=== PATIENT | female | born 1945 | race Hispanic/Latino ===

== ENCOUNTER 2016-12-01 03:11 | Emergency (ER) | payer MEDICARE, MEDICAID ==
[2016-12-01 03:22] VITALS: BMI 36.2
[2016-12-01 03:32] VITALS: RESP 18
--- NOTE | 2016-12-01 03:54 | ED PDOC ---
Arrival/HPI - General Historian: Patient - History of Present Illness Time/Duration: 1-3 hours <Abby Smith - Last Filed: 12/01/16 06:48> <Rose Paul - Last Filed: 12/01/16 07:44> - General Chief Complaint: Trauma Time Seen by Provider: 12/01/16 03:29 - History of Present Illness Narrative History of Present Illness (Text): 12/01/16 03:43 71 year old female with past medical history of hypertension, seizures, diabetes , hypothyroidism, GERD, and anemia presents to [facility] ED after having a mechanical fall at the intermediate. Patient reports she was getting out of her wheelchair to go to bed and lost balance then fell to the ground. Patient injured on her right hip, head, and left arm. She denies loss of consciousness, urinary or fecal incontinence. Patient made her way to the call foy and staff was notified. Denies seizures, fever, chills, shortness of breath, chest pain, nausea, vomiting, urinary symptoms. (Abby Smith) Past Medical History - Provider Review Nursing Documentation Reviewed: Yes - Infectious Disease Hx of Infectious Diseases: None - Cardiac Hx Pacemaker: No - Pulmonary Hx Respiratory Disorders: No - Neurological Hx Paralysis: No Hx Seizures: Yes - HEENT Hx HEENT Disorder: No - Endocrine/Metabolic Hx Diabetes Mellitus Type 1: Yes Hx Hypothyroidism: Yes - Hematological/Oncological Hx Blood Transfusions: Yes Hx Blood Transfusion Reaction: No - Integumentary Hx Dermatological Disorder: No - Musculoskeletal/Rheumatological Hx Musculoskeletal Disorders: Yes - Gastrointestinal Hx Gastrointestinal Disorders: Yes Hx Gastroesophageal Reflux: Yes - Genitourinary/Gynecological Hx Genitourinary Disorders: No - Psychiatric Hx Emotional Abuse: No Hx Physical Abuse: No Hx Substance Use: No - Surgical History Hx Appendectomy: Yes Other/Comment: herniorrhaphy - Anesthesia Hx Anesthesia Reactions: No - Suicidal Assessment Feels Threatened In Home Enviroment: No <Abby Smith - Last Filed: 12/01/16 06:48> Family/Social History - Physician Review Nursing Documentation Reviewed: Yes Family/Social History: No Known Family HX Smoking Status: Never Smoked Hx Alcohol Use: No Hx Substance Use: No <Abby Smith - Last Filed: 12/01/16 06:48> Allergies/Home Meds <Abby Smith - Last Filed: 12/01/16 06:48> <Rose Paul - Last Filed: 12/01/16 07:44> Allergies/Adverse Reactions: Allergies morphine Allergy (Verified 08/12/16 09:07) VOMITING Penicillins Allergy (Verified 09/26/16 11:34) RASH shellfish derived Allergy (Verified 08/12/16 09:07) ANAPHYLAXIS Home Medications: Home Meds Medication Instructions Recorded Confirmed Calcium Carbonate [Calcium] 600 mg PO DAILY 08/12/16 12/01/16 Furosemide [Lasix] 40 mg PO BID 08/12/16 12/01/16 Gabapentin [Neurontin] 300 mg PO TID 08/12/16 12/01/16 Levothyroxine Sodium [Levo-T] 75 mcg PO DAILY 08/12/16 12/01/16 Multivitamin [One Daily] 1 tab PO DAILY 08/12/16 12/01/16 Phenytoin, Extended [Dilantin 100 mg PO TID 08/12/16 12/01/16 Kapseals] Propylene Glycol/Peg 400 [Systane 1 drop OU QID 08/12/16 12/01/16 Liquid Gel Eye Drops] Simvastatin 10 mg PO DAILY 08/12/16 12/01/16 Spironolactone [Aldactone] 25 mg PO BID 08/12/16 12/01/16 Vitamin B Complex [Nature's Blend 1 tab PO DAILY 08/12/16 12/01/16 B Complex #1] Esomeprazole Magnesium [Nexium] 40 mg PO DAILY 09/26/16 12/01/16 Review of Systems - Physician Review All systems were reviewed & negative as marked: Yes - Review of Systems Constitutional: Normal. absent: Fatigue, Weight Change, Fevers Eyes: Normal. absent: Vision Changes ENT: Normal Respiratory: Normal. absent: SOB, Cough, Wheezing Cardiovascular: Normal. absent: Chest Pain, Syncope Gastrointestinal: Normal. absent: Abdominal Pain, Diarrhea, Nausea, Vomiting Musculoskeletal: Other (right hip pain, left forearm pain) Skin: Normal Neurological: Headache. absent: Dizziness, Seizure Endocrine: Normal Psychiatric: Normal <Abby Smith - Last Filed: 12/01/16 06:48> Physical Exam Vital Signs Reviewed: Yes Temperature: Afebrile Blood Pressure: Normal Pulse: Regular Respiratory Rate: Normal Appearance: Positive for: Non-Toxic Pain Distress: Mild Mental Status: Positive for: Alert and Oriented X 3 - Systems Exam Head: Present: Atraumatic, Normocephalic Pupils: Present: PERRL Extroacular Muscles: Present: EOMI Conjunctiva: Present: Normal Ears: Present: Normal Mouth: Present: Moist Mucous Membranes, Other (poor dentation) Respiratory/Chest: Present: Clear to Auscultation, Good Air Exchange. No: Respiratory Distress, Accessory Muscle Use, Wheezes Cardiovascular: Present: Regular Rate and Rhythm, Normal S1, S2 Abdomen: Present: Normal Bowel Sounds. No: Tenderness, Distention, Peritoneal Signs Upper Extremity: Present: Normal Inspection. No: Cyanosis, Edema Lower Extremity: Present: Normal Inspection. No: Edema Neurological: Present: GCS=15, CN II-XII Intact, Speech Normal Skin: Present: Warm, Dry, Normal Color. No: Rashes Psychiatric: Present: Alert, Oriented x 3, Normal Insight, Normal Concentration <Abby Smith - Last Filed: 12/01/16 06:48> Vital Signs Temp Pulse Resp BP Pulse Ox 12/01/16 03:22 97.6 F 80 18 126/84 100 Medical Decision Making Re-evaluation Time: 06:41 Reassessment Condition: Improved <Abby Smith - Last Filed: 12/01/16 06:48> <Rose Paul - Last Filed: 12/01/16 07:44> ED Course and Treatment: 12/01/16 04:17 -CT Head -CT pelvis -Toradol -Reassess DDx: mechanical fall, subdural hemotoma, concussion (Abby Smith) Impression: In agreement with resident note, which includes further HPI details. Patient was seen and evaluated with resident, came up with plan and treatment together. Pt, whose past medical history includes hypertension, seizures, diabetes, hypothyroidism, GERD, and anemia, s/p fall at intermediate. Pt complaining of pain to right hip, left arm, and head. Plan: -- CT Head w/o contrast -- CT Pelvis w/o contrast -- XR Hip -- Toradol -- Reassess and disposition 12/01/16 07:29 Imaging is unremarkable - patient says she has no pain at this time - ok for d/ c back to [place]. (Rose Paul) - Lab Interpretations Lab Results: Lab Results 12/01/16 03:42: POC Glucose (mg/dL) 117 H - RAD Interpretation Narrative RAD Interpretations (Text): 12/01/16 06:40 EXAM: CT Head Without Intravenous Contrast CLINICAL HISTORY: 71 years old, female; Injury or trauma; Fall; Initial encounter; Concussion / head injury TECHNIQUE: Axial computed tomography images of the head/brain without intravenous contrast. This CT exam was performed using one or more of the following dose reduction techniques: automated exposure control, adjustment of the mA and/or kV according to patient size, and/or use of iterative reconstruction technique. EXAM DATE/TIME: 12/01/2016 3:54 AM COMPARISON: Prior head CT of 08/12/2016 FINDINGS: LIMITATIONS: Exam is somewhat limited by mild streak/motion artifact. BRAIN: Areas of hypodensity seen in the white matter bilaterally, nonspecific in appearance, but most likely representing chronic small vessel ischemic changes, in a patient of this age. Diffuse, agerelated cortical atrophy and ventriculomegaly. No significant acute abnormality identified. No acute hemorrhage seen within the brain. No acute extra-axial fluid collections visualized. No evidence of significant mass effect within the brain. VENTRICLES: See above. BONES/JOINTS: No acute fractures or other acute bony abnormality noted. SOFT TISSUES: No acute abnormality of the visualized soft tissues is seen. VASCULATURE: Atherosclerotic calcification. SINUSES: Visualized paranasal sinuses appear clear. MASTOID AIR CELLS: Mastoid air cells appear clear. IMPRESSION: - No evidence of acute intracranial injury or fractures. - See above for remaining findings. 12/01/16 06:48 EXAM: CT Pelvis Without Intravenous Contrast CLINICAL HISTORY: 71 years old, female; Injury or trauma; Fall; Initial encounter; Blunt trauma ( contusions or hematomas); Does not apply; Pelvic region; Additional info: Posterior r buttock pain - R/O pelvis FX TECHNIQUE: Axial computed tomography images of the pelvis without intravenous contrast. This CT exam was performed using one or more of the following dose reduction techniques: automated exposure control, adjustment of the mA and/or kV according to patient size, and/or use of iterative reconstruction technique. Coronal and sagittal reformatted images were created and reviewed. EXAM DATE/TIME: 12/01/2016 4:23 AM COMPARISON: Prior CT pelvis of 08/12/2016 FINDINGS: BOWEL: No acute abnormality of the visualized pelvic bowel loops is seen. APPENDIX: Normal appendix is not seen, however, there are no significant inflammatory changes visualized in the expected location of the appendix to suggest appendicitis. Recommend clinical correlation. INTRAPERITONEAL SPACE: No evidence of significant free air or free fluid. BLADDER: Bladder is mildly dilated. REPRODUCTIVE: No acute abnormality of the reproductive organs is seen. BONES/JOINTS: Bony structures appear demineralized. Bilateral pars defects at L5. No acute fractures are seen. SOFT TISSUES:No acute abnormality of the visualized soft tissues is seen. No evidence of soft tissue hematoma. IMPRESSION: - No evidence of acute traumatic organ injury or fractures (Abby Smith) Radiology Orders: 12/01/16 03:54 HEAD W/O CONTRAST [CT] Stat 12/01/16 04:23 PELVIS W/O PO OR IV CONTRAST [CT] Stat HIP MIN 4V W/ PELVIS RT [RAD] Stat - Medication Orders Current Medication Orders: Discontinued Medications Ketorolac Tromethamine (Toradol) 15 mg IVP STAT STA Stop: 12/01/16 04:00 Last Admin: 12/01/16 04:48 Dose: 15 MG IVP Administration Document 12/01/16 04:48 TA (Rec: 12/01/16 04:48 TA [facility]-[id number]) Charges for Administration # of IVP Administrations 1 Disposition/Present on Arrival - Present on Arrival Any Indicators Present on Arrival: No History of DVT/PE: No History of Uncontrolled Diabetes: No Urinary Catheter: No History of Decub. Ulcer: No History Surgical Site Infection Following: None - Disposition Have Diagnosis and Disposition been Completed?: Yes Disposition Time: 06:52 Patient Plan: Discharge <Abby Smith - Last Filed: 12/01/16 06:48> - Present on Arrival Any Indicators Present on Arrival: Yes - Disposition Disposition Time: 07:00 Patient Plan: Discharge <Rose Paul - Last Filed: 12/01/16 07:44> - Disposition Diagnosis: Fall, Minor head injury Disposition: TRANSF TO [facility] Patient Problems: Current Active Problems Problem Status Diagnosed Fall Acute Condition: GOOD Discharge Instructions (ExitCare): Fall Prevention for Older Adults (ED) Additional Instructions: Mabel Jacobsen, thank you for letting us take care of you today. Your provider was Dr. Paul. You were treated for Mechanical fall. The emergency medical care you received today was directed at your acute symptoms. If you were prescribed any medication, please fill it and take as directed. It may take several days for your symptoms to resolve. Return to the Emergency Department if your symptoms worsen, do not improve, or if you have any other problems. Please contact your doctor or call one of the physicians/clinics you have been referred to that are listed on the Patient Visit Information form that is included in your discharge packet. Bring any paperwork you were given at discharge with you along with any medications you are taking to your follow up visit. Our treatment cannot replace ongoing medical care by a primary care provider (PCP) outside of the emergency department. Thank you for allowing the [facility] team to be part of your care today. If you had an X-Ray or CT scan: A Radiologist will review the ED reading if any change in treatment is needed we will contact you. If you had a blood, urine, or wound culture: It will take several days for the results, if any change in treatment is needed we will contact you. If you had an STI test: It will take 48 hours for the results. Please call after 1 week if you have not heard back. Prescriptions: Ibuprofen [Ibuprofen Ib] 400 mg PO Q6 PRN #20 tablet PRN Reason: Pain, Moderate (4-7)
--- NOTE | 2016-12-01 06:34 | CT ---
EXAM: CT Head Without Intravenous Contrast CLINICAL HISTORY: 71 years old, female; Injury or trauma; Fall; Initial encounter; Concussion / head injury TECHNIQUE: Axial computed tomography images of the head/brain without intravenous contrast. This CT exam was performed using one or more of the following dose reduction techniques: automated exposure control, adjustment of the mA and/or kV according to patient size, and/or use of iterative reconstruction technique. EXAM DATE/TIME: 12/01/2016 3:54 AM COMPARISON: Prior head CT of 08/12/2016 FINDINGS: LIMITATIONS: Exam is somewhat limited by mild streak/motion artifact. BRAIN: Areas of hypodensity seen in the white matter bilaterally, nonspecific in appearance, but most likely representing chronic small vessel ischemic changes, in a patient of this age. Diffuse, age-related cortical atrophy and ventriculomegaly. No significant acute abnormality identified. No acute hemorrhage seen within the brain. No acute extra-axial fluid collections visualized. No evidence of significant mass effect within the brain. VENTRICLES: See above. BONES/JOINTS: No acute fractures or other acute bony abnormality noted. SOFT TISSUES: No acute abnormality of the visualized soft tissues is seen. VASCULATURE: Atherosclerotic calcification. SINUSES: Visualized paranasal sinuses appear clear. MASTOID AIR CELLS: Mastoid air cells appear clear. IMPRESSION: - No evidence of acute intracranial injury or fractures. - See above for remaining findings.
--- NOTE | 2016-12-01 06:43 | CT ---
EXAM: CT Pelvis Without Intravenous Contrast CLINICAL HISTORY: 71 years old, female; Injury or trauma; Fall; Initial encounter; Blunt trauma (contusions or hematomas); Does not apply; Pelvic region; Additional info: Posterior r buttock pain - R/O pelvis FX TECHNIQUE: Axial computed tomography images of the pelvis without intravenous contrast. This CT exam was performed using one or more of the following dose reduction techniques: automated exposure control, adjustment of the mA and/or kV according to patient size, and/or use of iterative reconstruction technique. Coronal and sagittal reformatted images were created and reviewed. EXAM DATE/TIME: 12/01/2016 4:23 AM COMPARISON: Prior CT pelvis of 08/12/2016 FINDINGS: BOWEL: No acute abnormality of the visualized pelvic bowel loops is seen. APPENDIX: Normal appendix is not seen, however, there are no significant inflammatory changes visualized in the expected location of the appendix to suggest appendicitis. Recommend clinical correlation. INTRAPERITONEAL SPACE: No evidence of significant free air or free fluid. BLADDER: Bladder is mildly dilated. REPRODUCTIVE: No acute abnormality of the reproductive organs is seen. BONES/JOINTS: Bony structures appear demineralized. Bilateral pars defects at L5. No acute fractures are seen. SOFT TISSUES:No acute abnormality of the visualized soft tissues is seen. No evidence of soft tissue hematoma. IMPRESSION: - No evidence of acute traumatic organ injury or fractures. - See above for remaining findings.
--- NOTE | 2016-12-01 08:44 | RAD ---
PROCEDURE: Right hip and pelvis HISTORY: R posterior hip and buttock pain COMPARISON: None TECHNIQUE: AP pelvis and internal and external rotation views of right hip FINDINGS: No acute fracture. Joint spaces and articular surfaces are preserved. Sacroiliac joints are grossly preserved. IMPRESSION: No acute fracture.
[2016-12-01 09:17] VITALS: TEMP 97.8
[2016-12-01 10:25] VITALS: BP 130/78; PULSE 78; O2SAT 97
== END 2016-12-01 11:31 ==
LOC: ED 03:11
DX: S09.90XA Unspecified injury of head, initial encounter (principal); W05.0XXA Fall from non-moving wheelchair, initial encounter; Y92.129 Unspecified place in nursing home as the place of occurrence of the external cause
CPT/HCPCS: 70450; 72192; 73503; 82948; 96374; 99285; J1885

== ENCOUNTER 2017-01-24 07:30 | Inpatient (IN) | payer MEDICARE, MEDICAID ==
[2016-12-28 11:02] VITALS: BMI 33.4
--- NOTE | 2017-01-24 08:58 | CP.PCM.PN ---
Subjective - Date & Time of Evaluation Date of Evaluation: 01/24/17 Time of Evaluation: 08:55 - Subjective Subjective: 71 y/o F with gastric polyp presenting for EMR and possible gastrectomy. Spoke with sister (Saray) at length yesterday regarding increased anesthetic risk primarily due to severe aortic stenosis and she and both patient agree to the risk. Objective - Vital Signs/Intake and Output Vital Signs (last 24 hours): Temp Pulse Resp BP Pulse Ox 98.1 F 75 18 133/84 98 01/24/17 08:09 01/24/17 08:09 01/24/17 08:09 01/24/17 08:09 01/24/17 08:09
[2017-01-24] MEDS ORDERED: Midazolam 2 MG/2 ML VIAL ONE ×2 (09:39→10:45)
[2017-01-24] MEDS ORDERED: Succinylcholine 200 mg/10 ml Inj IV ONE (09:48)
[2017-01-24] MEDS ORDERED: Rocuronium 10 mg/ml (5 ml) ONE ×2 (09:48→09:59)
[2017-01-24] MEDS ORDERED: Etomidate 20 mg/10ml Inj IV ONE (09:48)
[2017-01-24] MEDS ORDERED: Phenylephrine 10 mg/ml Inj ONE (09:48)
[2017-01-24] MEDS ORDERED: Methylene Blue 10 mg/ml (1ml) Inj ONE (09:54)
[2017-01-24] MEDS ORDERED: Esmolol 100 mg/10ml Inj IV ONE (10:38)
[2017-01-24] MEDS ORDERED: HYDROmorphone 0.5 mg/0.5 ml ISec IVP PRN (11:28)
[2017-01-24] MEDS ORDERED: Sodium Chloride 0.9% 1,000 ML IV SCH (11:30)
[2017-01-24] MEDS ORDERED: Bacitracin 500 Units/gm Oint Foilpak UD ONE (12:03)
[2017-01-24] MEDS ORDERED: Pneumococcal 23-Valent Vaccine IM ONE (15:05)
--- NOTE | 2017-01-24 15:26 | CON ---
DATE: 01/24/2017 REASON FOR CONSULTATION: Aortic stenosis, postop followup of large gastric polypectomy. BRIEF CLINICAL HISTORY: This is a 71-year-old female with past medical history significant for GI bl eed in the past, history of congestive heart failure, anemia who was found to have a large polypoid m ass in the stomach and is scheduled for removal endoscopically with surgical backup by Dr. Sid delgadillo. The patient was seen last admission and it was canceled because the patient got scared. The enid ent underwent today endoscopic removal of a large polypoid mass from the gastric mucosa and the surgi paddy backup. Postop, the patient is in the recovery area. Denies any chest pain, shortness of breath , any palpitation. PAST MEDICAL HISTORY: Significant for cardiac arrhythmia, APCs. In 07/2016, the patient was admitte d with a GI bleed. Thought to be in AFib, but was found to be in normal sinus, APC on 08/17/2016 whe re we saw the patient as a consult at that time. Past medical history significant also for seizure d isorder, hypertension, diabetes, hypothyroidism, gastroesophageal reflux, GI bleed. PAST SURGICAL HISTORY: Significant for appendectomy in ____, history of right inguinal hernia in 200 8 and 2008, history of anemia, history of multiple blood transfusions. SOCIAL HISTORY: Denies smoking. Denies any history of alcohol abuse. FAMILY HISTORY: No documented coronary artery disease. ALLERGIES: SHELLFISH. CURRENT MEDICATIONS: The patient is taking tramadol, B complex, simvastatin, multivitamin, magnesium , lidocaine patch, levothyroxine, gabapentin, Lasix, calcium softgel and acetaminophen. PREVIOUS CARDIAC WORKUP: As follows: The patient had echocardiography on 08/09/2016 that shows aort ic stenosis with valve area of 0.6 cm2 normal LV size, ejection fraction within the normal limit, lázaro stolic dysfunction, moderate to severely calcified aortic valve, severe aortic stenosis, mild aortic regurgitation, mitral regurgitation, no pulmonary hypertension, no significant tricuspid regurgitatio n, RV systolic pressure at 30, calculated ejection fraction 55% dated 08/09/2016. REVIEW OF SYSTEMS: As per HPI. PHYSICAL EXAMINATION: VITAL SIGNS: Temperature 98, heart rate 63, blood pressure 122/60. HEENT: PERRLA. Extraocular muscles intact. NECK: Supple. No carotid bruits. No thyromegaly. CHEST: Clear to auscultation. HEART: S1, S2 regular. ABDOMEN: Soft. EXTREMITIES: Clubbing and cyanosis negative. BLOOD WORKUP: As follows: WBC 7.____, hemoglobin 10.9, hematocrit 32.8, platelet count 500. Chemis try shows sodium 130, potassium 3.7, chloride 100, carbon dioxide 27, anion gap of 13, BUN 6, creatin ine 0.5. IMPRESSION: Status post large polypoid mass removed endoscopically, history of severe aortic stenosi s with preserved left ventricular function, history of arrhythmia in the past, history of seizure dis order, hypertension, diabetes, hypothyroidism, gastroesophageal reflux, obesity. RECOMMENDATION: Monitor H and H. Monitor in ICU because the patient has severe aortic stenosis. Wi ll follow with you. Thank you, Dr. Tillman, for providing us the opportunity in taking care of the patient. Will follow with you. Jaleesa Boss MD cc: [id number] TT: 01/24/2017 15:25:24 Confirmation # [id number] Dictation # [id number] mn
[2017-01-24] MEDS ORDERED: Sodium Chloride 0.45% 1,000 ML IV SCH (17:15)
--- NOTE | 2017-01-24 20:36 | HP ---
HISTORY OF PRESENT ILLNESS: This is a 71-year-old patient with history of large gastric polyp prolap sing into the duodenum, was admitted to the same day surgery initially for polyp with surgical backup . The patient has a history of severe aortic stenosis. The patient was preoperatively evaluated by the legislative advocate before. The patient did refuse TAVR in the past. The patient underwent the procedu re today under general anesthesia with A-line monitoring. The large polyp was pulled out from the du odenum and removed in one piece. Three clips were applied to the base with perfect hemostasis obtain ed. The entire polyp was retrieved in one piece. Sent for pathology for analysis. The patient has been on pureed diet for a long time in view of this polyp which is causing partial gastric outlet obs truction. Other past medical history is significant for anemia, history of arthritis, cardiac arrhyt hmias, atrial fibrillation, seizure disorder, hypertension, diabetes, hypothyroidism, reflux disease. PAST SURGICAL HISTORY: Significant for appendectomy, right inguinal hernia repair done. SOCIAL HISTORY: Denies smoking or alcohol. senior living resident. FAMILY HISTORY: Noncontributory. ALLERGIES: SHELLFISH. REVIEW OF SYSTEMS: Positive as above. Other systems reviewed. PHYSICAL EXAMINATION: GENERAL: The patient is lying on the bed post procedure, not in acute distress. VITAL SIGNS: Temperature is afebrile, blood pressure 122/62. HEENT: Atraumatic, anicteric. NECK: Supple. HEART: S1, S2 heard. LUNGS: Bilateral air entry present. ABDOMEN: Soft. There is no tenderness. EXTREMITIES: No cyanosis, no clubbing. LABORATORY DATA: Hemoglobin 10.9, hematocrit 32.8, platelets 500. Chemistry reviewed. IMPRESSION: 1. Status post large gastric polypectomy done endoscopically. Hemoclips applied. 2. History of severe aortic stenosis with preserved left ventricular function. 3. History of cardiac dysrhythmias. 4. History of seizure disorder. 5. Hypertension. 6. Hypothyroidism, gastroesophageal reflux disease. RECOMMENDATIONS: 1. Close monitoring. Will start the patient on clear liquid diet. 2. Close monitoring of the hemoglobin and hematocrit. Will repeat labs in a.m. 3. Will restart her previous medication. We will continue to closely follow up her care and suggest further management based on the clinical course. Toby Tillman MD cc: [id number] TT: 01/24/2017 20:35:50 rn
[2017-01-24] MEDS: Magnesium Hydroxide Susp 30 ml UD PO SCH (21:55)
[2017-01-24] MEDS: Aritificial Tears (15ml) OU SCH (22:11)
[2017-01-25] MEDS: Pantoprazole 40 mg EC Tab PO SCH (06:12)
[2017-01-25] MEDS: Levothyroxine 75 MCG TAB PO SCH (06:13)
[2017-01-25 08:02] LABS: ADD MANUAL DIFF? NO
[2017-01-25 08:06] LABS: BASO # 0.03 K/mm3 (0.0-2.0); BASO % 0.3 % (0.0-3.0); EOS # 0.1 (0.0-0.7); EOS % 1.4 % (1.5-5.0); GRAN # 7.55 (1.4-6.5); GRAN % 79.3 % (50.0-68.0); HEMATOCRIT 29.8 % (36.0-48.0); MEAN CELL VOLUME 75.8 fL (80.0-105.0); MEAN CORPUSCULAR HEMOGLOBIN 24.2 pg (25.0-35.0); MEAN CORPUSCULAR HGB CONC 31.9 g/dl (31.0-37.0); MEAN PLATELET VOLUME 9.8 fl (7.0-11.0); MONO # 0.9 (0.1-0.6); PLATELET COUNT 486 10^3/uL (120.0-450.0); RED CELL DISTRIBUTION WIDTH 17.8 % (11.5-14.5); WHITE BLOOD COUNT 9.5 10^3/ul (4.5-11.0)
[2017-01-25 08:53] LABS: ALB/GLOB RATIO 1.1 (1.1-1.8); ALKALINE PHOSPHATASE 104 U/L (38-133); ALT/SGPT 29 U/L (7-56); AST/SGOT 22 U/L (15-39); BILIRUBIN,TOTAL 0.4 mg/dL (0.2-1.3); BLOOD UREA NITROGEN 8 mg/dL (7-21); CALCIUM 8.8 mg/dL (8.4-10.5); CARBON DIOXIDE 26 mmol/L (21-33); CHLORIDE 103 mmol/L (98-107); CHOLESTEROL 180 mg/dL (130-200); GFR AFRICAN-AMERICAN > 60; GLUCOSE,RANDOM 96 mg/dL (70-110); MAGNESIUM 2.2 mg/dL (1.7-2.2); PHOSPHOROUS 3.6 mg/dL (2.5-4.5); POTASSIUM 3.5 mmol/L (3.6-5.0); SODIUM 137 mmol/L (132-148); TOTAL PROTEIN 6.6 g/dL (5.8-8.3)
--- NOTE | 2017-01-25 08:54 | CON ---
DATE: 01/25/2017 CHIEF COMPLAINT: Abdominal pain, gassy stomach. HISTORY OF PRESENT ILLNESS: The patient a 71-year-old, my private patient, resident of [facility]. Has multiple past medical history: Hypertension, hypothyroidism, anemia, hypercholesterolemia, mentally challenged. Has abdominal pain, and endoscopy was done by Dr. 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 This time was admitted to the same day surgery initially for polyp with surgical backup. The patient has history of severe aortic stenosis. The patient has refused surgery and maybe in the future she will go. The patient was preoperatively evaluated by the electric motor analyst, Dr. Boss, and was cleared with high risk patient. The patient went for procedure today by Dr. Tillman. The large polyp was pulled out from the duodenum and removed in 1 piece. Three clips were applied to the base with perfect hemostasis obtained. The entire polyp was retrieved in [address] Tillman, sent for pathology evaluation. The patient is getting pureed diet for a long time. One reason, she does not have good dentures; second, may be due to polyp; she was feeling dysphagia some time, and this tumor was causing gastric partial outlet obstruction. OTHER MEDICAL COMORBIDITIES: Arthritis, cardiac arrhythmias, atrial fibrillation, seizures, hypertension, diabetes mellitus, hypothyroidism, GERD, dyspepsia. PAST SURGICAL HISTORY: Appendectomy, right inguinal hernia repair. FAMILY HISTORY: Father and mother noncontributory. HABITS: Never smoked, no drugs, no ethanol. ALLERGIES: THE PATIENT IS ALLERGIC TO SHELLFISH. REVIEW OF SYSTEMS: The patient was seen and examined on the bedside. Looks comfortable. Just complaining of abdominal pain, gassy stomach. No fever, no chills. No headache, no dizziness. PHYSICAL EXAMINATION: VITAL SIGNS: Temperature 97.8, pulse 81, blood pressure 92/50, respiratory rate 18. HEENT: Head normocephalic, atraumatic. Eyes: PERRLA. Extraocular muscles intact. Conjunctivae are clear. Nose patent. NECK: Supple. No carotid bruit, JVD or thyromegaly. CHEST: Bilaterally symmetrical. HEART: S1, S2 positive. LUNGS: Clear to auscultation. ABDOMEN: Soft. Bowel sounds present. No organomegaly. EXTREMITIES: No edema, no cyanosis. NEUROLOGIC: The patient is awake, alert, moving all 4 extremities. No focal deficit. MEDICATIONS: Aldactone, Artificial Tears, Dilantin, Lidoderm, Lipitor, milk of magnesia, Neurontin, Protonix, Remeron, Synthroid, Tylenol, tramadol and Zofran. LABORATORY DATA: Glucose is 95, 97. We do not have recent labs today. We will get labs. ASSESSMENT AND PLAN: The patient is a 71-year-old lady with multiple comorbidities, has history of hypothyroidism, most of the time it is stable; status post large gastric polypectomy done endoscopically, hemoclip applied; history of severe aortic stenosis with preserved left ventricular dysfunction, history of cardiac dysrhythmias, history of seizure disorder, hypertension. Now patient is admitted overnight. We will continue close monitoring on clear liquid diet. Close monitoring of the hemoglobin and hematocrit. Repeat labs in the a.m. Old medications restarted. Dr. Tillman will send me message. Will follow up. Mayra Ibarra MD cc: [id number] TT: 01/25/2017 08:53:41 Confirmation # [id number] Dictation # [id number] tanya [place]
[2017-01-25] MEDS: Calcium-Vit D 250 mg-125 Units Tab UD PO SCH (09:53)
[2017-01-25] MEDS: Multivitamin Therapeutic Tab PO SCH (09:53)
[2017-01-25] MEDS: Multivitamin Vitamin B Complex (Nephro-Vite) Tab PO SCH (09:58)
[2017-01-25] MEDS: Aritificial Tears (15ml) OU SCH ×4 (09:59→21:46)
[2017-01-25] MEDS: Lidocaine 5% Patch TD SCH (09:59)
--- NOTE | 2017-01-25 10:39 | PN ---
DATE: 01/25/2017 GI FOLLOWUP NOTE Seen and examined at the bedside earlier this morning. The patient denies any acute overnight events . Denies any nausea, vomiting, or abdominal pain. No reports of any overt GI bleed. Nursing though reports that the patient had a low blood pressure and ____. Lasix was held. VITAL SIGNS: Temperature 98.3. The blood pressure was 97/54, pulse 84, respirations 20, 98 on room air. LABORATORY DATA: WBC 9.5, hemoglobin 9.5, hematocrit 29.8, platelets of 486. Sodium 137, K 3.5. BU N is 8. Creatinine is 0.5, mag 2.2. LFTs are within normal limits. PHYSICAL EXAMINATION: HEENT: Sclerae are anicteric. NECK: Supple. CARDIAC: S1, S2. LUNGS: Decreased breath sounds, but good air entry. No rales or wheeze. ABDOMEN: With bowel sounds, soft, nontender. No rebound or guarding. EXTREMITIES: Positive pulse. No edema. NEUROLOGIC: Awake, alert, and oriented. ASSESSMENT: The patient is status post large polypoid mass removal endoscopically status post Hemocl ip. The patient has a history of severe aortic stenosis, cardiac dysrhythmia, seizure disorder, and hypertension, gastroesophageal reflux disease. PLAN: We will advance the patient's diet to a pureed diet. I spoke to the patient this morning and informed her that upon discharge she needs to continue on a pureed diet for 1 week. The patient ackn owledged understanding. Monitor H and H. Continue PPI. The patient is being followed by cardiology. I appreciate cardiology recommendations. The patient will likely be discharged home today, discuss ed with nursing staff, once cleared by cardiology regarding her blood pressure. The patient was seen and case discussed with Dr. Tillman. We will also follow up pathology, and [facility] in 1-2 weeks post-procedure in our outpatient office. Loren UPTON cc: [id number] TT: 01/25/2017 09:23:02 Confirmation # [id number] Dictation # [id number] lemuel
[2017-01-25] MEDS ORDERED: Potassium Chloride 40 mEq/30 ml LIQ UD PO ONE (12:08)
--- NOTE | 2017-01-25 14:11 | CP.PCM.PN ---
Subjective - Date & Time of Evaluation Date of Evaluation: 01/25/17 Time of Evaluation: 13:15 - Subjective Subjective: called by nurse pt is c/o cp. pt is pointing to left sternal border.no nausea , no sob , no dizziness. Objective - Vital Signs/Intake and Output Vital Signs (last 24 hours): Temp Pulse Resp BP Pulse Ox 98.2 F 80 16 129/78 98 01/25/17 12:00 01/25/17 12:00 01/25/17 12:00 01/25/17 12:00 01/25/17 05:24 Intake and Output: 01/25/17 01/25/17 06:59 18:59 Intake Total 240 420 Output Total 0 Balance 240 420 - Medications Medications: Current Medications Acetaminophen (Tylenol 325mg Tab) 650 mg PO Q4H PRN PRN Reason: Pain, moderate (4-7) Artificial Tears (Artificial Tears) 1 ml OU QID [facility] Last Admin: 01/25/17 09:59 Dose: 1 drop Atorvastatin Calcium (Lipitor) 10 mg PO DIN [facility] Last Admin: 01/24/17 21:55 Dose: 10 mg Calcium/Vitamin D (Oscal-D 250 Mg-125 Units Tab) 1 tab PO DAILY [facility] Last Admin: 01/25/17 09:53 Dose: 1 tab Furosemide (Lasix) 40 mg PO BID [facility] Last Admin: 01/25/17 10:03 Dose: Not Given Gabapentin (Neurontin) 300 mg PO TID [facility] PRN Reason: Protocol Last Admin: 01/25/17 09:53 Dose: 300 mg Levothyroxine Sodium (Synthroid) 75 mcg PO 0600 [facility] Last Admin: 01/25/17 06:13 Dose: 75 mcg Lidocaine (Lidoderm) 1 ea TD DAILY [facility] Last Admin: 01/25/17 09:59 Dose: 1 ea Magnesium Hydroxide (Milk Of Magnesia) 30 ml PO HS [facility] Last Admin: 01/24/17 21:55 Dose: 30 ml Metoclopramide HCl (Reglan) 10 mg IV ONCE PRN PRN Reason: Nausea/Vomiting Multivitamins (Thera Tab) 1 tab PO DAILY [facility] Last Admin: 01/25/17 09:53 Dose: 1 tab Ondansetron HCl (Zofran Inj) 4 mg IVP ONCE PRN PRN Reason: Nausea/Vomiting Pantoprazole Sodium (Protonix Ec Tab) 40 mg PO 0630 [facility] Last Admin: 01/25/17 06:12 Dose: 40 mg Phenytoin Sodium (Dilantin) 100 mg PO TID [facility] Last Admin: 01/25/17 09:53 Dose: 100 mg Spironolactone (Aldactone) 25 mg PO BID [facility] Last Admin: 01/25/17 10:04 Dose: Not Given Tramadol HCl (Ultram) 50 mg PO TID PRN PRN Reason: Pain, moderate (4-7) Last Admin: 01/25/17 13:44 Dose: 50 mg Vitamin B Complex/Vit C/Folic Acid (Nephro-Jose) 1 tab PO DAILY [facility] Last Admin: 01/25/17 09:58 Dose: 1 tab - Labs Labs: 01/25/17 07:30 01/25/17 07:30 - Constitutional Appears: No Acute Distress - Head Exam Head Exam: NORMOCEPHALIC - Eye Exam Eye Exam: Normal appearance Pupil Exam: PERRL - ENT Exam ENT Exam: Mucous Membranes Moist - Neck Exam Neck Exam: Full ROM - Respiratory Exam Respiratory Exam: Chest Wall Tenderness, Clear to Ausculation Bilateral, NORMAL BREATHING PATTERN - Cardiovascular Exam Cardiovascular Exam: RRR, +S1, +S2 - Rectal Exam Rectal Exam: Deferred - Extremities Exam Extremities Exam: Full ROM - Neurological Exam Neurological Exam: Alert, Awake, CN II-XII Intact, Oriented x3 - Psychiatric Exam Psychiatric exam: Normal Affect - Skin Skin Exam: Dry, Warm Assessment and Plan - Assessment and Plan (Free Text) Assessment: chest wall pain. Plan: pt is on tramadol will give one dose now.
--- NOTE | 2017-01-25 17:41 | PN ---
DATE: 01/25/2017 REASON FOR CONSULTATION AND FOLLOWUP: Aortic stenosis, postop followup for ____ gastric polypectomy. The patient denies any chest pain, shortness of breath, any palpitation. PHYSICAL EXAMINATION: As follows: VITAL SIGNS: Temperature afebrile, heart rate 80, blood pressure 129/78. HEENT: PERRLA, intact. NECK: Supple. No carotid bruits. No thyromegaly. CHEST: Clear to auscultation. HEART: S1, S2 regular. ABDOMEN: Soft. EXTREMITIES: Clubbing and cyanosis negative. BLOOD WORKUP: As follows: WBC ____, hemoglobin 9.5, hematocrit 29.8, platelet count 486. Chemistry shows sodium 136, potassium 3.5, chloride 103, carbon dioxide 26, anion gap of 12, BUN 8, creatinine 0.5. TSH 1.69. IMPRESSION: Status post polypectomy large gastric polyp, severe aortic stenosis, severe aortic steno sis, preserved left ventricular function, history of arrhythmia in the past, history of seizure disor lizette, hypertension, hyperlipidemia, diabetes, ____, gastroesophageal reflux, obesity. RECOMMENDATION: Continue low-dose beta-sedrick. Continue atorvastatin. Continue spironolactone. C ontinue Lasix, but is on hold because patient was having low blood pressure. We will follow with you . Thank you, Dr. Ibarra, for providing the opportunity in taking care of the patient. Jaleesa Boss MD cc: [id number] TT: 01/25/2017 17:40:21 Confirmation # [id number] Dictation # [id number] sn
--- NOTE | 2017-01-25 19:02 | PN ---
DATE: 01/25/2017 ADDENDUM This patient was seen and evaluated earlier today. The patient's blood pressure remains on the low s johanna. This is an addendum to the GI progress report dictated by Loren Reynolsd APN. The patient's blood pressure remains still on the low side. The patient has been evaluated by the technology and engineering teacher. Also abdon suazo followed by Dr. Ibarra. The patient's diet has been advanced to pureed diet. Continue to follo w up the hemoglobin and hematocrit. Once the medication is optimized, she will be discharged back to the [facility]. Thank you very much for allowing us to participate in the care of the patient. Toby Tillman MD cc: [id number] TT: 01/25/2017 19:01:53 Confirmation # [id number] Dictation # [id number] nitesh
[2017-01-25] MEDS: Magnesium Hydroxide Susp 30 ml UD PO SCH (21:43)
[2017-01-26 00:21] VITALS: O2SAT 96
[2017-01-26] MEDS: Pantoprazole 40 mg EC Tab PO SCH (05:50)
[2017-01-26] MEDS: Levothyroxine 75 MCG TAB PO SCH (05:51)
--- NOTE | 2017-01-26 06:21 | PN ---
DATE: 01/25/2017 SUBJECTIVE: The patient was seen and examined on the bedside, looks comfortable. Today, she has episode of chest pain. House physician was called. Pain was on the left side on the sternal border. No nausea, vomiting or dizziness. No dizziness. No headache. No shortness of breath. No fever, no chills. PHYSICAL EXAMINATION: VITAL SIGNS: Temperature 98.2, pulse 60, respiratory rate 16, blood pressure 120/78, and pulse oximetry 98. HEENT: Head normocephalic, atraumatic. Eyes: PERRLA. Extraocular muscles intact. Conjunctivae clear. Nose patent. Mucous membranes moist. NECK: Supple. No carotid bruit, JVD or thyromegaly. CHEST: Bilaterally symmetrical. HEART: S1, S2 positive. LUNGS: Clear to auscultation. ABDOMEN: Soft. Bowel sounds present. No organomegaly. EXTREMITIES: No edema, no cyanosis. NEUROLOGIC: The patient is awake, alert, moving all 4 extremities. No focal deficits. MEDICATIONS: Artificial tears, Lipitor, vitamin D, Lasix, Neurontin, Synthroid , Lidoderm, milk of magnesia, Reglan, multivitamins, Zofran, Protonix, Dilantin , Aldactone, tramadol. LABORATORY DATA: Sodium 137, potassium 3.5, BUN 8, creatinine 0.5, glucose 86. White blood cells 9.5, hemoglobin 9.5, hematocrit 29.8, platelets 486. ASSESSMENT AND PLAN: The patient with multiple comorbidities, mentally challenged, status post polypectomy, large gastric polyp, severe aortic stenosis , preserved left ventricular function, history of arrhythmias in the past, history of seizures, stable with Dilantin, history of severe anemia, status post blood transfusion, hypertension, hypercholesterolemia, diabetes mellitus, gastroparesis, gastroesophageal reflux disease, obesity. The plan is to continue low dose beta blockers, atorvastatin, spironolactone, Lasix, but Lasix is holding because of low blood pressure. The patient wanted to go for cardiac surgery. will call Dr. Boss to discuss with him. The patient has seen Loren Reynolds, nurse practitioner of Dr. Toby Tillman: The patient got advanced diet today. According to gastrointestinal, the patient has to continue at least 1 week more puree diet. Monitor hemoglobin and hematocrit. Continue proton pump inhibitor. Today, the patient had some attack of chest pain, seen by sba underwriter. Gastrointestinal and deep venous thrombosis prophylaxis. Repeat labs. We will follow up. Mayra Ibarra MD cc: [id number] TT: 01/26/2017 06:20:50 Confirmation # [id number] Dictation # [id number] tn MTDD
[2017-01-26 07:52] LABS: HEMATOCRIT 28.9 % (36.0-48.0); MEAN CELL VOLUME 75.3 fL (80.0-105.0); MEAN CORPUSCULAR HEMOGLOBIN 24.2 pg (25.0-35.0); MEAN CORPUSCULAR HGB CONC 32.2 g/dl (31.0-37.0); MEAN PLATELET VOLUME 9.7 fl (7.0-11.0); RED CELL DISTRIBUTION WIDTH 17.8 % (11.5-14.5); WHITE BLOOD COUNT 7.2 10^3/ul (4.5-11.0)
[2017-01-26] MEDS: Lidocaine 5% Patch TD SCH (09:30)
[2017-01-26] MEDS: Aritificial Tears (15ml) OU SCH ×2 (09:31→14:20)
[2017-01-26] MEDS: Multivitamin Vitamin B Complex (Nephro-Vite) Tab PO SCH (09:31)
[2017-01-26] MEDS: Multivitamin Therapeutic Tab PO SCH (09:31)
[2017-01-26] MEDS: Calcium-Vit D 250 mg-125 Units Tab UD PO SCH (09:31)
--- NOTE | 2017-01-26 10:28 | CARD ---
APPROVED REPORT EKG Measurement Heart [id number] <Conclusion> Normal sinus rhythm PRWP No change
--- NOTE | 2017-01-26 11:57 | PN ---
DATE: 01/26/2017 Seen and examined at the bedside earlier this morning. Yesterday, the patient complained of having c hest pain. She was evaluated. The patient is being seen by cardiology. This morning, no complaints of nausea, vomiting, just has some epigastric discomfort, tolerating oral intake. No other acute ov ernight events were reported. No reports of any overt GI bleed. VITAL SIGNS: Temperature 98.3, blood pressure 135/78, pulse rate 82, respirations 22, 96% O2 saturat ion. LABORATORY DATA: WBC 7.2, hemoglobin 9.3, hematocrit 28.9, platelets of 467. H and H has been stabl e. PHYSICAL EXAMINATION: HEENT: Sclera is anicteric. NECK: Supple. CARDIAC: S1, S2. LUNG SOUNDS: With decreased breath sounds, but good air entry, no rales or wheeze. ABDOMEN: With bowel sounds, soft. There was no tenderness on palpation. No rebound or guarding. EXTREMITIES: No edema. NEUROLOGIC: Alert, awake, oriented. ASSESSMENT: The patient is status post large polypoid mass removal done endoscopically, status post Hemoclip, history of hypertension, gastroesophageal reflux disease, severe aortic stenosis, cardiac d ysrhythmia, obesity. PLAN: Continue the pureed diet and as stated before, the patient needs to remain on the pureed diet for 1 week. Follow up her biopsies. Continue PPI. She is on Protonix 40 daily. As per medical tea m and cardiology. The patient was seen and case discussed with Dr. Tillman. Loren UPTON cc: [id number] TT: 01/26/2017 11:56:33 Confirmation # [id number] Dictation # [id number] en
[2017-01-26 12:08] VITALS: BP 112/63; RESP 20; TEMP 98.2
--- NOTE | 2017-01-26 14:12 | PN ---
DATE: 01/26/2017 The patient is a 71-year-old female. The patient was seen and examined on the bedside, looks comfortable. No nausea, vomiting, diarrhea. No hematuria, no hematochezia. No chest pain, no palpitation. No headache, no dizziness. Yesterday, patient had 1 episode of chest pain, was evaluated by the house physician and box builder is on the case. PHYSICAL EXAMINATION: VITAL SIGNS: Temperature 98.2, pulse 72, blood pressure 112/80 , respiratory rate 20. HEENT: Head normocephalic, atraumatic. Eyes, PERRLA. Extraocular muscles intact. Conjunctivae clear. Nose patent. Mucous membranes moist. NECK: Supple. No carotid bruit, no JVD, no thyromegaly. CHEST: Bilaterally symmetrical. HEART: S1, S2 positive. LUNGS: Clear to auscultation. ABDOMEN: Soft. Bowel sounds present. No organomegaly. EXTREMITIES: No edema, no cyanosis. NEUROLOGIC: The patient is awake, alert, moving all 4 extremities. No focal deficit. MEDICATIONS: Aldactone, artificial tears, Dilantin, Lasix, Lidoderm, Lipitor, Lopressor, milk of magnesia, Nephro vitamins, Neurontin, Oscal, Protonix, Reglan , Synthroid, Thera tablets, Tylenol, tramadol, Zofran. LABORATORIES: White blood cells is 7.2, hemoglobin 9.3, hematocrit 28.9, platelets 467. Sodium 137, potassium 3.5, BUN 8, creatinine 0.5. TSH 1.69. ASSESSMENT AND PLAN: The patient is a 71-year-old lady with anemia, thrombocytopenia, hypothyroidism, diabetes mellitus, history of seizures, mentally challenged, came with constant history of gastroesophageal reflux disease, dyspepsia, cannot eat. Now, as per Dr. Tillman, via endoscopy , he removed tumor from the gastric. After that, as per patient, she is feeling better. The patient has history of aortic stenosis, wants to go for surgery. Yesterday, had episode of chest pain, was seen by house physician and the box builder. Gastrointestinal and deep venous thrombosis prophylaxis. Repeat labs. We will follow up. Length of time discussion done with nurse practitioner, Mela. Plan is if Dr. Boss wants to do surgery this admission, maybe we will transfer patient to [facility]. Otherwise , we will transfer patient back to [facility]. Tolerating the pureed diet very well. Mayra Ibarra MD cc: [id number] TT: 01/26/2017 14:12:02 Confirmation # [id number] Dictation # [id number] en MTDD
[2017-01-26] MEDS ORDERED: Nystatin 100,000 Units/gm Topical Pow(15 gm) TOP SCH (18:00)
[2017-01-26] MEDS ORDERED: Pantoprazole 40 mg EC Tab PO SCH (18:00)
[2017-01-26 18:44] VITALS: PULSE 80
--- NOTE | 2017-01-26 19:20 | PN ---
DATE: 01/26/2017 REASON FOR CONSULTATION AND FOLLOWUP: Aortic stenosis, preop and postop followup after a large polyp oid mass removed endoscopically in the stomach. The patient is complaining of epigastric pain. Erik es any chest pain. PHYSICAL EXAMINATION: VITAL SIGNS: Temperature afebrile, heart rate 77, blood pressure 112/63. HEENT: PERRLA. Extraocular muscles intact. NECK: Supple. No carotid bruits. No thyromegaly. CHEST: Clear to auscultation. HEART: S1, S2 regular. ABDOMEN: Soft. EXTREMITIES: Clubbing and cyanosis negative. LABORATORY DATA: Blood workup as follows: WBC , hemoglobin , hematocrit 28.9, platelet c ount 467. Chemistry shows sodium 135, potassium 3.5, chloride 103, carbon dioxide 26, anion gap of 1 2, BUN 8, creatinine 0.5. IMPRESSION: Severe aortic stenosis, status post removal of a large polypoid mass from the stomach, h ypokalemia, severe aortic stenosis, preserved left ventricular function, history of arrhythmia in the past, history of seizure disorder, hypertension, hyperlipidemia, gastroesophageal reflux. RECOMMENDATION: Continue perioperative beta sedrick. Continue gentle diuretics. Supplement radha guerrier. We will follow with you. Thank you, Dr. Ibarra, for providing the opportunity in taking care of the patient. Will discontinue telemetry. Jaleesa Boss MD cc: [id number] TT: 01/26/2017 19:19:27 Confirmation # [id number] Dictation # [id number] nitesh
--- NOTE | 2017-01-26 23:20 | PN ---
DATE: 01/26/2017 ADDENDUM This is an addendum to the GI progress report dictated by Loren Reynolds APN. SUBJECTIVE: This patient underwent a large gastric polypectomy endoscopic removal. This large polyp was prolapsing into the duodenum causing partial obstruction. The patient was on pureed diet. The patient had 3 metallic clips. Slowly we can advance the diet to soft diet after a week's time. Will continue the PPI. Continue the PPI. Followup of the hemoglobin and hematocrit. The patient would benefit from repeating the endoscopy in 2 months' time. The larger polyp pathology was reviewed. It was reported as hyperplastic gastric polyp with the intestinal metaplasia and there is a rare focal soft low-grade dysplasia noticed. The resection margin of the polyp is free of atypia, as well as dy splastic changes. This is good news for the patient. The patient also has a critical aortic stenosi s, being followed by cardiology. The patient refused intervention in the past. Toby Tillman MD cc: [id number] TT: 01/26/2017 23:19:11 Confirmation # [id number] Dictation # [id number] oliver
--- NOTE | 2017-03-20 09:10 | DS ---
CHIEF COMPLAINT: Abdominal pain. 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 The patient has a history of severe aortic stenosis. The patient was preoperatively evaluated by the vmware consultant. The patient refused TAVR in the past. The patient underwent procedure under general anesthesia with A-line monitoring. A large bulb was pulled out from the duodenum and removed in one piece. Three clips were applied to the base with perfect hemostasis obtained as per surgeon. The stomach polyp was retrieved in one piece and sent for pathology analysis. The patient was admitted, seen by Dr. Tillman and Dr. Boss, felt better and discharged back to [facility] on 01/26/2017. PAST MEDICAL HISTORY: Appendectomy, right inguinal hernia repair, diabetes mellitus, seizures and hypothyroidism. SOCIAL HISTORY: Never smoked. No drugs and no ethanol. FAMILY HISTORY: Noncontributory. ALLERGIES: THE PATIENT IS ALLERGIC TO SHELLFISH. REVIEW OF SYSTEMS: The patient is looking great. No nausea, vomiting, or diarrhea. No hematuria or hematochezia. No swelling of the legs. No chest pain. No palpitation. For more details, see my progress notes of 01/26/2017. We will follow up the patient in [facility]. Mayra Ibarra MD MTDCristina
== END 2017-01-26 19:13 | DRG 394 ==
LOC: EDSTATUS 07:30 → SDAINP 07:52 → CCU 13:22 → 2RNO 21:29
PROVIDERS: ADMIT Internal Medicine Gastroenterology; ATTEND Internal Medicine Gastroenterology
PROC: 0DB68ZZ Excision of Stomach, Via Natural or Artificial Opening Endoscopic (ICD-10-PCS; principal; 2017-01-24 07:30)
DX: K31.7 Polyp of stomach and duodenum (principal); K31.1 Adult hypertrophic pyloric stenosis; E11.43 Type 2 diabetes mellitus with diabetic autonomic (poly)neuropathy; D69.6 Thrombocytopenia, unspecified; I48.91 Unspecified atrial fibrillation; K31.84 Gastroparesis; I11.0 Hypertensive heart disease with heart failure; G40.909 Epilepsy, unspecified, not intractable, without status epilepticus; I50.9 Heart failure, unspecified; E03.9 Hypothyroidism, unspecified; E78.5 Hyperlipidemia, unspecified; I35.0 Nonrheumatic aortic (valve) stenosis; R07.89 Other chest pain; K31.4 Gastric diverticulum; E66.9 Obesity, unspecified; D64.9 Anemia, unspecified; K21.9 Gastro-esophageal reflux disease without esophagitis; M19.90 Unspecified osteoarthritis, unspecified site; E78.00 Pure hypercholesterolemia, unspecified; E87.6 Hypokalemia; Z91.013 Allergy to seafood

== ENCOUNTER 2017-04-11 10:57 | Inpatient (IN) | payer MEDICARE, MEDICAID ==
--- NOTE | 2017-04-11 11:15 | ED PDOC ---
Arrival/HPI - General Chief Complaint: Trauma Time Seen by Provider: 04/11/17 11:12 Historian: Patient - History of Present Illness Narrative History of Present Illness (Text): 04/11/17 11:15 A 71 year old female, whose past medical history includes diabetes, hypertension , COPD, GERD, seizure and aortic stenosis, presents to the emergency department complaining of bilateral hip and left lower extremity pain [facility]. Patient reports experiencing episodes of dizziness, chest pain and shortness of breath causing her to fall. Patient is unsure whether she lost consciousness and is unable to provide further details. Patient denies any fever , chills, nausea, vomiting, diarrhea, abdominal pain, urinary symptoms, neck pain, headache, visual changes, weakness, numbness or any other complaints. As per prison record, patient is not on any anticoagulants. PMD: Dr. Ibarra Time/Duration: Other (few days) Symptom Course: Unchanged Quality: Other Context: Home (prison) Past Medical History - Provider Review Nursing Documentation Reviewed: Yes - Infectious Disease Hx of Infectious Diseases: None - Cardiac Hx Cardiac Disorders: Yes (SEVERE AORTIC STENOSIS) Hx Circulatory Problems: Yes Hx Congestive Heart Failure: Yes Hx Hypertension: Yes Hx Pacemaker: No - Pulmonary Hx Respiratory Disorders: Yes Hx Chronic Obstructive Pulmonary Disease (COPD): Yes Hx Sleep Apnea: Yes - Neurological Hx Neurological Disorder: Yes HX Cerebrovascular Accident: Yes (RIGHT SIDED WEAKNESS) Hx Dizziness: Yes (SYNCOPE) Hx Seizures: Yes Hx Transient Ischemic Attacks (TIA): Yes Other/Comment: NEUROPATHY - HEENT Hx HEENT Disorder: Yes Hx Glaucoma: Yes - Renal Hx Renal Disorder: No - Endocrine/Metabolic Hx Endocrine Disorders: Yes Hx Diabetes Mellitus Type 1: Yes Hx Hypothyroidism: Yes - Hematological/Oncological Hx Blood Disorders: Yes Hx Anemia: Yes (H/O BLOOD TRANSFUSION) - Integumentary Hx Dermatological Disorder: No - Musculoskeletal/Rheumatological Hx Musculoskeletal Disorders: Yes Hx Arthritis: Yes Hx Falls: Yes Hx Fractures: Yes (CATALINA FX ANKLE) - Gastrointestinal Hx Gastrointestinal Disorders: Yes (GI BLEED,GASTRIC LARGE POLYP REMOVED.01-24-17) Hx Gastroesophageal Reflux: Yes HX Swallowing Problems: Yes (PUREED DIET) - Genitourinary/Gynecological Hx Genitourinary Disorders: No - Psychiatric Hx Psychophysiologic Disorder: No Hx Emotional Abuse: No Hx Physical Abuse: No Hx Substance Use: No - Surgical History Hx Appendectomy: Yes Other/Comment: herniorrhaphy - Anesthesia Hx Anesthesia Reactions: No Hx Malignant Hyperthermia: No - Suicidal Assessment Feels Threatened In Home Enviroment: No Family/Social History - Physician Review Nursing Documentation Reviewed: Yes Family/Social History: No Known Family HX Smoking Status: Never Smoked Hx Alcohol Use: No Hx Substance Use: No Allergies/Home Meds Allergies/Adverse Reactions: Allergies morphine Allergy (Verified 04/11/17 11:03) VOMITING orange Allergy (Verified 04/11/17 11:03) RASH Penicillins Allergy (Verified 04/11/17 11:03) RASH shellfish derived Allergy (Verified 04/11/17 11:03) ANAPHYLAXIS tomato Allergy (Verified 04/11/17 11:03) RASH Home Medications: Home Meds Medication Instructions Recorded Confirmed Calcium Carbonate/Vitamin D3 600 mg PO DAILY 12/28/16 04/11/17 [Calcium 600+D Softgel] Furosemide [Lasix] 40 mg PO BID 12/28/16 04/11/17 Gabapentin [Neurontin] 300 mg PO TID 12/28/16 04/11/17 Levothyroxine [Synthroid] 75 mcg PO DAILY 12/28/16 04/11/17 Lidocaine [Lidocare] 1 each TP DAILY 12/28/16 04/11/17 Magnesium Hydroxide [Milk Of 30 ml PO HS PRN 12/28/16 04/11/17 Magnesia] Multivitamin [Multivitamins] 1 cap PO DAILY 12/28/16 04/11/17 Phenytoin, Extended [Dilantin 200 mg PO BID 12/28/16 04/11/17 Kapseals] Propylene Glycol/Peg 400 [Systane 1 drop OU QID 12/28/16 04/11/17 Gel Eye Drops] Simvastatin 10 mg PO DAILY 12/28/16 04/11/17 Spironolactone [Aldactone] 25 mg PO BID 12/28/16 04/11/17 Vitamin B Complex [Super B-50 1 cap PO DAILY 12/28/16 04/11/17 Complex] traMADol [Ultram] 50 mg PO TID PRN 12/28/16 04/11/17 Metoprolol Succinate XL [Toprol XL] 25 mg PO DAILY 04/11/17 04/11/17 Pantoprazole [Protonix EC Tab] 40 mg PO DAILY 04/11/17 04/11/17 Vitamin B Complex [Vitamin B 1 tab PO DAILY 04/11/17 04/11/17 Complex] Review of Systems - Physician Review All systems were reviewed & negative as marked: Yes - Review of Systems Constitutional: absent: Fevers, Night Sweats Eyes: absent: Vision Changes ENT: absent: Hearing Changes Respiratory: SOB Cardiovascular: Chest Pain Gastrointestinal: absent: Abdominal Pain, Diarrhea, Nausea, Vomiting Genitourinary Female: absent: Dysuria, Frequency, Hematuria, Urine Output Changes Musculoskeletal: Other (bilateral hip and left lower extremity pain). absent: Neck Pain Neurological: Dizziness. absent: Headache, Focal Weakness Physical Exam Vital Signs Reviewed: Yes Vital Signs Temp Pulse Resp BP Pulse Ox 04/11/17 12:33 81 20 134/85 98 04/11/17 11:05 98.2 F 79 16 134/85 97 Temperature: Afebrile Blood Pressure: Normal Pulse: Regular Respiratory Rate: Normal Appearance: Positive for: Well-Appearing, Non-Toxic, Comfortable Pain Distress: None Mental Status: Positive for: Alert and Oriented X 3 - Systems Exam Head: Present: Atraumatic, Normocephalic Pupils: Present: PERRL Extroacular Muscles: Present: EOMI Conjunctiva: Present: Normal Ears: Present: Normal, NORMAL TM, Normal Canal. No: Erythema, TM Bulging, Fluid , TM Perf Mouth: Present: Moist Mucous Membranes Pharnyx: No: ERYTHEMA, EXUDATE, TONSILS ENLARGED Neck: Present: Normal Range of Motion Respiratory/Chest: Present: Clear to Auscultation, Good Air Exchange. No: Respiratory Distress, Accessory Muscle Use Cardiovascular: Present: Murmurs, Normal S1, S2 Abdomen: Present: Normal Bowel Sounds. No: Tenderness, Distention, Peritoneal Signs Back: Present: Normal Inspection Upper Extremity: Present: Normal Inspection, Normal ROM, NORMAL PULSES. No: Cyanosis, Edema Lower Extremity: Present: NORMAL PULSES, Normal ROM, Tenderness (Bony hip tenderness), Other (Ecchymosis noted on lateral aspect of left thigh). No: Edema, CALF TENDERNESS, Deformity, Temperature Abnormalties, Neurovascularly Intact Neurological: Present: GCS=15, CN II-XII Intact, Speech Normal. No: Gait Normal (Did not check gait due to fall risk) Skin: Present: Warm, Dry, Normal Color. No: Rashes Psychiatric: Present: Alert, Oriented x 3, Normal Insight, Normal Concentration Medical Decision Making ED Course and Treatment: 04/11/17 11:15 Impression: A 71 year old female with bilateral hip and left lower extremity pain after fall secondary to dizziness, chest pain and shortness of breath. Differential Diagnosis included but are not limited to: Traumatic injury Plan: -- Head CT -- Bilateral hip xray -- Left femur xray -- Chest xray -- EKG -- Labs -- Urinalysis -- Reassess and disposition Progress Notes: EKG shows NSR at 77 BPM with normal intervals, no ST/T changes. Interpreted by me. Report Date : 04/11/2017 12:45:25 PROCEDURE: CT HEAD WITHOUT CONTRAST. Dictator : Lissette Rhoades V. IMPRESSION: No interval hemorrhage or mass effect. The supratentorial patchy white matter vague hypodensities are similar appearing. In this age group, chronic small vessel ischemic changes believe most likely. Possible old burnt out left sphenoid incidental meningioma. No interval change perceived compared to 2016 study Xray femur and xray hip negative for fracture or dislocation 04/11/17 14:02 Labs show elevated dilantin. Spoke to Dr. Ibarra. She is requesting tele admission for dilantin toxicity and slow hydration due to diastolic failure with 50cc/hr IVF - Lab Interpretations Lab Results: 04/11/17 12:00 04/11/17 12:51 Lab Results 04/11/17 12:51: Phenytoin 49 H* 04/11/17 12:51: Sodium 139, Potassium 3.3 L, Chloride 100, Carbon Dioxide 27, Anion Gap 15, BUN 10, Creatinine 0.5, Est GFR ( Amer) > 60, Est GFR (Non- Af Amer) > 60, Random Glucose 142 H, Calcium 8.9, Phosphorus 3.7, Magnesium 2.1 , Total Bilirubin 0.3, AST 22, ALT 34, Alkaline Phosphatase 121, Total Creatine Kinase 72, Troponin I < 0.01 D, NT-Pro-B Natriuret Pep 549 H, Total Protein 7.3 , Albumin 4.2, Globulin 3.0, Albumin/Globulin Ratio 1.4 04/11/17 12:00: PT 11.3, INR 1.05, APTT 31.4 H 04/11/17 12:00: WBC 9.9 D, RBC 4.53, Hgb 10.8 L, Hct 33.2 L, MCV 73.3 L, MCH 23.8 L, MCHC 32.5, RDW 16.8 H, Plt Count 499 H, MPV 9.6, Gran % 71.5 H, Lymph % (Auto) 13.8 L, Overton % (Auto) 12.2 H, Eos % (Auto) 2.2, Baso % (Auto) 0.3, Gran # 7.06 H, Lymph # 1.4, Overton # 1.2 H, Eos # 0.2, Baso # 0.03 04/11/17 11:27: POC Glucose (mg/dL) 115 H I have reviewed the lab results: Yes - RAD Interpretation Radiology Orders: 04/11/17 11:14 HEAD W/O CONTRAST [CT] Stat CHEST ONE VIEW [RAD] Stat FEMUR MIN 2 VIEWS LT [RAD] Stat HIP MIN 2V W/ PELVIS CATLAINA [RAD] Stat - Medication Orders Current Medication Orders: Sodium Chloride (Sodium Chloride 0.9%) 1,000 mls @ 50 mls/hr IV .Q20H BO Last Admin: 04/11/17 14:12 Dose: 50 mls/hr - Scribe Statement The provider has reviewed the documentation as recorded by the Valentina Gan Provider Scribe Attestation: All medical record entries made by the Scribe were at my direction and personally dictated by me. I have reviewed the chart and agree that the record accurately reflects my personal performance of the history, physical exam, medical decision making, and the department course for this patient. I have also personally directed, reviewed, and agree with the discharge instructions and disposition. Disposition/Present on Arrival - Present on Arrival Any Indicators Present on Arrival: No History of DVT/PE: No History of Uncontrolled Diabetes: No Urinary Catheter: No History of Decub. Ulcer: No History Surgical Site Infection Following: None - Disposition Have Diagnosis and Disposition been Completed?: Yes Diagnosis: Dilantin toxicity, Falls Disposition: HOSPITALIZED Disposition Time: 13:01 Patient Plan: Admission Condition: FAIR
[2017-04-11 12:09] LABS: BASO # 0.03 K/mm3 (0.0-2.0); BASO % 0.3 % (0.0-3.0); EOS # 0.2 (0.0-0.7); EOS % 2.2 % (1.5-5.0); GRAN # 7.06 (1.4-6.5); GRAN % 71.5 % (50.0-68.0); HEMATOCRIT 33.2 % (36.0-48.0); LYMPH # 1.4 (1.2-3.4); LYMPH % 13.8 % (22.0-35.0); MEAN CELL VOLUME 73.3 fl (80.0-105.0); MEAN CORPUSCULAR HEMOGLOBIN 23.8 pg (25.0-35.0); MEAN CORPUSCULAR HGB CONC 32.5 g/dl (31.0-37.0); MEAN PLATELET VOLUME 9.6 fl (7.0-11.0); MONO # 1.2 (0.1-0.6); MONO % 12.2 % (1.0-6.0); RED CELL DISTRIBUTION WIDTH 16.8 % (11.5-14.5); WHITE BLOOD COUNT 9.9 10^3/ul (4.5-11.0)
[2017-04-11 12:19] LABS: INR 1.05 (0.93-1.08); PARTIAL THROMBOPLASTIN TIME 31.4 Seconds (23.7-30.8)
--- NOTE | 2017-04-11 12:52 | CT ---
PROCEDURE: CT HEAD WITHOUT CONTRAST. HISTORY: dizziness COMPARISON: 12/01/2016 and 08/12/2016 CT head TECHNIQUE: Axial computed tomography images were obtained through the head/brain without intravenous contrast. Radiation dose: Total exam DLP = 780 mGy-cm. This CT exam was performed using one or more of the following dose reduction techniques: Automated exposure control, adjustment of the mA and/or kV according to patient size, and/or use of iterative reconstruction technique. FINDINGS: HEMORRHAGE: No intracranial hemorrhage. BRAIN: No mass effect or edema. The prior areas of hypodensity seen in the white matter bilaterally, Are similar in appearance - most likely representing chronic small vessel ischemic changes, in a patient of this age. Diffuse, age-related cortical atrophy and ventriculomegaly. VENTRICLES: As above CALVARIUM: There is minimal hyperostoses bordering the left sphenoid does not too dissimilar with earlier studies- a act chronic "Burned out" incidental meningioma here is not excluded. PARANASAL SINUSES: Minimal ethmoidal sinus inflammatory changes -similar-appearing MASTOID AIR CELLS: Unremarkable as visualized. No inflammatory changes. OTHER FINDINGS: None. IMPRESSION: No interval hemorrhage or mass effect. The supratentorial patchy white matter vague hypodensities are similar appearing. In this age group, chronic small vessel ischemic changes believe most likely. Possible old burnt out left sphenoid incidental meningioma. No interval change perceived compared to 2016 study
[2017-04-11 13:08] LABS: ALB/GLOB RATIO 1.4 (1.1-1.8); ALKALINE PHOSPHATASE 121 U/L (38-133); ALT/SGPT 34 U/L (7-56); AST/SGOT 22 U/L (15-39); BILIRUBIN,TOTAL 0.3 mg/dL (0.2-1.3); BLOOD UREA NITROGEN 10 mg/dL (7-21); CALCIUM 8.9 mg/dL (8.4-10.5); CARBON DIOXIDE 27 mmol/L (21-33); CHLORIDE 100 mmol/L (98-107); GFR AFRICAN-AMERICAN > 60; GLUCOSE,RANDOM 142 mg/dL (70-110); MAGNESIUM 2.1 mg/dL (1.7-2.2); PHOSPHOROUS 3.7 mg/dL (2.5-4.5); POTASSIUM 3.3 mmol/L (3.6-5.0); SODIUM 139 mmol/L (132-148); TOTAL PROTEIN 7.3 g/dL (5.8-8.3)
[2017-04-11 13:21] LABS: TROPONIN I < 0.01 ng/mL
[2017-04-11] MEDS ORDERED: Sodium Chloride 0.9% 500 ML IV STA (13:37)
[2017-04-11] MEDS: Sodium Chloride 0.9% 1,000 ML IV SCH (14:12)
--- NOTE | 2017-04-11 14:43 | RAD ---
PROCEDURE: HISTORY: fall with hip pain COMPARISON: 12/01/2016 TECHNIQUE: AP view of the pelvis and applicable frog leg views obtained. FINDINGS: Generalized osteopenia. Stem is limited due to the osteopenia and large body habitus. Stool projects over the symphysis pubis as well. No fracture or dislocation appreciated Atherosclerotic vascular calcifications over each groin ir faintly noted. A 1.7 x 1.0 cm probable injection gluteal granuloma noted -unchanged Inferior lumbar osseous hypertrophic changes suggested limited visualization here 13 x 2 mm elieser-like calcification and/or ossification projecting near the superior right iliac border and cecal region - not appreciated on the prior image. Significance unknown Conceivably, a short segmental appendicolith is 1 consideration. IMPRESSION: No gross hip fracture identified. No dislocation appreciated. Limited exam given the generalized osteopenia and large body habitus Other findings as above
--- NOTE | 2017-04-11 15:11 | RAD ---
PROCEDURE: CHEST RADIOGRAPH, 1 VIEW HISTORY: chest pain COMPARISON: None available. FINDINGS: LUNGS: Shallow lung volumes No dense consolidation PLEURA: No pneumothorax or pleural fluid seen. CARDIOVASCULAR: Cardiomegaly. Central pulmonary vascular crowding without mild central pulmonary venous congestion overall appearance not significantly changed OSSEOUS STRUCTURES: No significant abnormalities. VISUALIZED UPPER ABDOMEN: Normal. OTHER FINDINGS: None. IMPRESSION: Shallow lung volumes as before. Cardiomegaly as before central pulmonary vascular congestion - probably present- some of this is also consistent with crowding no definite change here appreciated
--- NOTE | 2017-04-11 15:14 | RAD ---
PROCEDURE: HISTORY: fall with L leg pain COMPARISON: None TECHNIQUE: Multiple five views FINDINGS: Generalized osteopenia. Mild axial joint space narrowing. No definite fracture appreciated. Left gluteal injection granulomas Faint left groin vascular calcifications IMPRESSION: No gross fracture appreciated. No dislocation. Generalized osteopenia noted. Left axial joint space degenerative narrowing
[2017-04-11] MEDS ORDERED: Potassium Chloride 20 mEq/15 ml LIQ UD PO STA (16:21)
[2017-04-11 17:35] VITALS: BMI 31.8
[2017-04-11] MEDS ORDERED: Pneumococcal 23-Valent Vaccine IM ONE (17:36)
[2017-04-11] MEDS: Insulin Reg-LOW-Coverage SC SCH (22:19)
[2017-04-11] MEDS: Aritificial Tears (15ml) OU SCH (22:21)
--- NOTE | 2017-04-12 05:42 | HP ---
CHIEF COMPLAINT: Fall and altered mental status. HISTORY OF PRESENT ILLNESS: Ms. Mabel Jacobsen is a 71 years old female with history of diabetes mellitus, hypertension, COPD, GERD, seizures, severe aortic stenosis. He came to the emergency room complaining of bilateral hip and left lower extremity pain after multiple falls at senior living. The patient reports experiencing episodes of dizziness, chest pain and shortness of breath causing her to fall. The patient is unsure whether she lost consciousness and is unable to provide further details, but as per senior living, the patient has altered mental status especially more at night. No nausea, vomiting, or diarrhea. Feeling dizzy. The patient is not on her baseline. PAST MEDICAL HISTORY: Severe aortic stenosis, COPD, congestive heart failure, hypertension, sleep apnea, history of CVA, dizziness, history of syncope, seizures, TIA, glaucoma, diabetes mellitus type 1, anemia, history of blood transfusion, bilateral ankle fracture, history of GI bleeding, and gastric large polyp removed. PAST SURGICAL HISTORY: Herniorrhaphy. FAMILY HISTORY: Father and mother noncontributory. HABITS: No smoking. No drugs. No ethanol. ALLERGIES: THE PATIENT IS ALLERGIC WITH MORPHINE, ORANGE , SHELL FISH, AND TOMATO ALLERGY. MEDICATIONS: Calcium, Lasix, Neurontin, Synthroid, Lidocaine, milk of magnesia, multivitamin, Dilantin, simvastatin, Aldactone, Ultram, metoprolol, Protonix, and B complex. REVIEW OF SYSTEMS: The patient was seen and examined at the bedside. Looking comfortably. No nausea or vomiting. Denies any hematuria or hematochezia. No swelling of the legs. No chest pain or palpitation. No headache. No dizziness. Having bilateral hip and lower extremity pain. No headache. No focal weakness. PHYSICAL EXAMINATION: VITAL SIGNS: Temperature 98.6, pulse 81, respiratory rate 20, blood pressure 135/85, pulse oximetry 98. HEENT: Head is normocephalic and atraumatic. Eyes, PERRLA. Extraocular muscles intact. Conjunctivae clear. Nose patent. Mucous membranes are moist. NECK: Supple. No carotid bruit, JVD or thyromegaly. CHEST: Bilaterally symmetrical. HEART: S1 and S2 positive. LUNG: Clear to auscultation. ABDOMEN: Soft. Bowel sounds positive. No organomegaly. EXTREMITIES: No edema. No cyanosis. NEUROLOGIC: The patient is awake and alert. Moving all 4 extremities. SKIN: Warm an dry. Normal color. No rashes. LABORATORY DATA: White blood cells 9.9, hemoglobin 10.8, hematocrit 32.2, platelets 499. Sodium 139, potassium 3.3, BUN 10, creatinine 0.5, glucose 142. Dilantin level of 49. ASSESSMENT AND PLAN: Ms. Mabel Jacobsen is a 71 years old patient, resident of [facility] . Has anemia, thrombocytosis, hypokalemia, hyperglycemia, Dilantin toxicity. Reviewed CAT scan of the head. History of fall. X-ray of the femur, chest x-ray, x-ray of the hip and pelvis reviewed by me. Admitted the patient. The patient has history of diabetes mellitus, hypertension, chronic obstructive pulmonary disease, gastroesophageal reflux disease, dyspepsia, history of seizures, severe aortic stenosis, history of gastric polyp removed by Dr. Tillman and history of obstructive sleep apnea syndrome. We are admitting the patient on fall and seizure precautions, IV fluid, checking of sugar, restarted all the medications. Mayra Ibarra MD MTDD
[2017-04-12] MEDS: Insulin Reg-LOW-Coverage SC SCH ×4 (07:30→21:45)
[2017-04-12 07:41] LABS: PH,URINE 6.5 (4.7-8.0); URINE BILIRUBIN NEGATIVE (NEGATIVE); URINE BLOOD TRACE-INTACT (NEGATIVE); URINE GLUCOSE (UA) NEGATIVE (NEGATIVE); URINE KETONE NEGATIVE (NEGATIVE); URINE LEUKOCYTE ESTERASE SMALL Leu/uL (NEGATIVE); URINE PROTEIN NEGATIVE mg/dL (<30 mg/dL); URINE UROBILINOGEN 0.2 E.U./dL (<1 E.U./dL)
[2017-04-12 07:42] LABS: URINE APPEARANCE SL CLOUDY (CLEAR); URINE COLOR YELLOW (YELLOW)
[2017-04-12 07:46] LABS: URINE RBC 0 - 2 /hpf (0-2)
[2017-04-12 07:47] LABS: URINE BACTERIA MANY (NEG)
[2017-04-12] MEDS: Pantoprazole 40 mg EC Tab PO SCH (09:47)
[2017-04-12] MEDS: Multivitamin Therapeutic Tab PO SCH (09:47)
[2017-04-12] MEDS: Metoprolol Succinate 25 mg XL Tab PO SCH (09:48)
[2017-04-12] MEDS: Levothyroxine 75 MCG TAB PO SCH (09:48)
[2017-04-12] MEDS: Lidocaine 5% Patch TD SCH (09:49)
[2017-04-12] MEDS: Aritificial Tears (15ml) OU SCH ×4 (09:49→21:47)
[2017-04-12] MEDS: Cholecalciferol 400 Intl Units Tab PO SCH (09:50)
[2017-04-12] MEDS: Multivitamin Vitamin B Complex (Nephro-Vite) Tab PO SCH (09:50)
[2017-04-12] MEDS ORDERED: VITAMIN B COMPLEX PO SCH (10:00)
[2017-04-12] MEDS ORDERED: Non Formulary Medication (Vitamin B Complex [Super B-50 Complex] 1 CAP) PO SCH (10:00)
[2017-04-12] MEDS ORDERED: CALCIUM CARBONATE PO SCH (10:00)
[2017-04-12] MEDS ORDERED: VITAMIN D3 PO SCH (10:00)
[2017-04-12] MEDS: Sodium Chloride 0.9% 1,000 ML IV SCH (12:49)
--- NOTE | 2017-04-12 17:20 | CARD ---
APPROVED REPORT EKG Measurement Heart [id number] <Conclusion> Normal sinus rhythm Normal ECG
[2017-04-12] MEDS: Tmp-Smz 800 mg-160 mg DS Tab PO SCH (18:21)
[2017-04-12] MEDS: Albuterol-Ipratrop 3 mg / 0.5 (3 ml) UD IH SCH (20:18)
--- NOTE | 2017-04-13 00:56 | CON ---
DATE: 04/12/2017 LOCATION: The patient is in room #262, bed #1. REASON FOR CONSULTATION: Multiple falls at longterm, altered mental status, history of seizure disorder and history of severe aortic stenosis. HISTORY OF PRESENT ILLNESS: The patient is a 71-year-old female, transferred from longterm because she had fallen at longterm. There is no clear history of unconsciousness. The patient known to have seizure disorder, old CVA, diabetes mellitus, hypertension, COPD, GERD, obstructive sleep apnea, history of GI bleeding in the past and history of polypoid lesion removal from the stomach. There is no history of chest pain or shortness of breath, nausea or vomiting associated with this fall. The patient presently lying flat in bed without any guarding symptoms or chest pain, shortness of breath or palpitation. PAST MEDICAL HISTORY: The patient's past history is positive for seizure disorder, CVA, diabetes mellitus, hypertension, COPD, obstructive sleep apnea, severe aortic stenosis and anemia. The patient was admitted with GI bleeding and found to have a polypoid lesion in the stomach which was removed through gastro endoscopy, gastroesophageal reflux disease and hypothyroidism. PAST SURGICAL HISTORY: The patient had appendectomy, right inguinal hernia surgery and history of anemia, multiple blood transfusions. PERSONAL HISTORY: No history of smoking or drinking. FAMILY HISTORY: Not significant. ALLERGIES: THE PATIENT IS ALLERGIC TO SULFATE. MEDICATIONS: The patient's medications at home included Dilantin, simvastatin, Aldactone, Ultram, metoprolol, Protonix, B complex, Lasix, Neurontin and Synthroid. REVIEW OF SYSTEMS: All the systems reviewed, positive mentioned in history, others are negative. Also, at nighttime in the longterm, the patient gets marked altered mental status. PHYSICAL EXAMINATION: VITAL SIGNS: Blood pressure 119/73, respirations 18, pulse 76 and temperature 97.6. HEENT: Head is normocephalic. Eyes: Pupils normal and conjunctivae slightly pale. NECK: JVP low. Carotids equal. LUNGS: Thorax AP diameter normal. Lungs clear. CARDIOVASCULAR: S1 and S2. Ejection systolic murmur, grade III/. No rub. ABDOMEN: Soft. Nontender. No organomegaly. EXTREMITIES: No clubbing. No cyanosis. LABORATORY DATA: WBC 9.9, hemoglobin 10.8, hematocrit 33.2 and platelets 499. Sodium 139, potassium 3.3, BUN 10, creatinine 0.5 and random sugar 128. Calcium, phosphorous and magnesium are normal. AST and ALT normal. Troponin normal. NT [id number] peptide 549. Total protein and albumin normal. EKG showed normal sinus rhythm. Chest x-ray showed low lung volumes and cardiomegaly. Lung volumes are low, so there is guarding of the bronchovascular markings; I do not think the patient has any CHF. DIAGNOSES: The patient admitted with falls, seizure disorder, diabetes mellitus, old cerebrovascular accident, hypertension, obstructive sleep apnea, chronic obstructive pulmonary disease, severe aortic stenosis, anemia, hypothyroidism and gastroesophageal reflux disease. Dilantin level on admission was 49, today is 39, so Dilantin toxicity. Hypokalemia. PLAN: We will repeat Dilantin level in the morning and also magnesium, phosphorus and SMA-7 in the morning. The patient on spironolactone 25 b.i.d., Bactrim 1 tablet p.o. b.i.d., calcium carbonate 600 mg p.o. daily, Doryx 100 mg p.o. q. 12 hours, DuoNeb hand nebulizer therapy, insulin as ordered, torsemide 40 b.i.d., Lipitor 10 mg daily, Neurontin 300 t.i.d., prednisone 20 mg daily and Protonix 40 daily. The patient getting 50 mL normal saline IV fluid per hour. Toprol-XL 25 mg daily. We will continue present therapy and we will follow. Jaleesa Beyer MD
--- NOTE | 2017-04-13 01:17 | PN ---
DATE: SUBJECTIVE: The patient is a 71-year-old female. The patient was seen and examined on the bedside. Looking comfortable. Dizziness is getting better. Factor of her Dilantin toxicity is getting better, but still getting shortness of breath, especially on exertion and want to go for cardiac surgery. Actually, she wanted to go for surgery for a long time, but we were postponing because of her gastric condition. Now that gastric polyp is removed, I called consulting Dr. Boss to work on that. No nausea, vomiting, or diarrhea. No hematuria or hematochezia. No swelling of the legs. No chest pain. No palpitations. PHYSICAL EXAMINATION: VITAL SIGNS: Temperature 97.6, pulse 76, blood pressure 119/73, and respiratory rate 18. HEENT: Head is normocephalic and atraumatic. Eyes; PERRLA. Extraocular muscles intact. Conjunctivae clear. Nose is patent. Mucous membrane moist. NECK: Supple. No carotid bruit, JVD, or thyromegaly. CHEST: Bilaterally symmetrical. HEART: S1 and S2 positive. LUNGS: Clear to auscultation. ABDOMEN: Soft. Bowel sounds positive. No organomegaly. EXTREMITIES: No edema. No cyanosis. NEUROLOGIC: The patient is awake and alert. Moving all 4 extremities. No focal deficit. MEDICATIONS: Aldactone, artificial tears, Bactrim, Caltrate, doxycycline, albuterol, insulin, Lasix, Lidoderm, Lipitor, milk of magnesia, prednisone, Protonix, Synthroid, multivitamin, Toprol, tramadol, and vitamin D. LABORATORY DATA: We do not have serial lab today, but reviewed all labs. Dilantin level on admission was 49 and today is 39. ASSESSMENT AND PLAN: Ms. Mabel Jacobsen is a 71 years old lady with anemia, hypokalemia, replaced, hyperglycemia, congestive heart failure, urinary tract infection, started her on antibiotics, Dilantin toxicity improving, history of chronic obstructive pulmonary disease, asthma, history of multiple falls. CAT scan and x-rays reviewed. Discussion done with ER physician. The patient has severe aortic stenosis and wants to go for surgery. We will discuss with Dr. Boss, hypertension, sleep apnea, history of cerebrovascular accident, dizziness, seizures, transient ischemic attack, glaucoma, history of blood transfusion, history of bilateral ankle fracture, history of GI bleeding, gastric large polyp removed, status post blood transfusion, gastrointestinal and deep venous thrombosis prophylaxis, repeat labs and we will followup. Mayra Ibarra MD [place]
[2017-04-13] MEDS: Albuterol-Ipratrop 3 mg / 0.5 (3 ml) UD IH SCH ×4 (01:32→19:57)
--- NOTE | 2017-04-13 02:04 | CON ---
DATE: 04/12/2017 PULMONARY CONSULTATION REFERRING PHYSICIAN: Mayra Ibarra MD REASON FOR CONSULTATION: Cough and shortness of breath. HISTORY OF PRESENT ILLNESS: This is 71 years old female with multiple medical issues including diabetes, hypertension, severe aortic stenosis with multiple falls, history of GERD, seizure disorder, complained of hip pain and leg pain after multiple falls, was admitted for further workup, found to have a Dilantin level high. Currently lying in the bed, having some rhinitis, postnasal drip, and cough. No sputum production. No hemoptysis. No hematemesis. No hematuria. No diarrhea reported. PAST MEDICAL HISTORY: Severe aortic stenosis, chronic lung disease, heart failure, hypertension, may have sleep apnea syndrome, history of CVA, seizure disorder, anemia, history of gastric polyp removed. SOCIAL HISTORY: Nonsmoker and nondrinker. FAMILY HISTORY: No significant cardiopulmonary disease reported. ALLERGIES: MORPHINE, ORANGE JUICE, SHELLFISH, AND TOMATO. MEDICATIONS: She is on Aldactone 25 mg twice a day, artificial tears, Bactrim double strength twice a day, Caltrate 600 mg daily, insulin coverage, Lasix 40 mg twice a day, lidocaine affected area, Lipitor 10 mg daily, Milk of Magnesia p.r.n., Nephro-vitamins daily, Neurontin 300 mg 3 times daily, Protonix 40 mg daily, IV fluid normal saline 50 mL/hour, Synthroid 75 mcg daily, multivitamin daily, Toprol-XL 25 mg daily, Ultram 50 mg 3 times a day p.r.n., vitamin D 400 international units p.o. daily. REVIEW OF SYSTEMS: No headache. Mild rhinitis, post nasal drip, cough and shortness of breath. No nausea. No vomiting. No diarrhea. No leg pain or leg swelling. PHYSICAL EXAMINATION: GENERAL: Sitting up in the bed, mild cough. VITAL SIGNS: Temperature is 98, heart rate is 71, respiratory rate is 20, blood pressure 120/71 and pulse ox 96% on room air. HEENT: Moist mucous membranes. Crowded airway. NECK: Supple. No JVD. LUNGS: Scattered rhonchi. HEART: S1 and S2 with murmur. ABDOMEN: Soft and nontender. No organomegaly. EXTREMITIES: No edema. NEUROLOGIC: Awake, alert and follows simple commands. LABORATORY DATA: Shows hemoglobin 10.8, hematocrit 33.2, WBC 9.8, platelet is 499. INR 1.05 and PTT 31. Sodium 139, potassium 3.3, chloride 100, bicarbonate 27, BUN 10, creatinine 0.5, glucose 142, calcium 8.9, phosphorus 2.7, magnesium is 2.1, AST 22, ALT 34, alk phos is 121. ProBNP 549 and albumin is 4.2. Phenytoin level yesterday was 39. CAT scan of the head was done, which shows no interval hemorrhage or mass effect, supratentorial patch white matter, vague hypodensities are similar appearing as previous CT of the head. There could be incidental meningioma in the left sphenoid. IMPRESSION AND PLAN: Frequent fall and syncopal episode with severe aortic stenosis, Dilantin toxicity, hypertension, history of cerebrovascular accident, seizure disorder, diabetes, anemia. Agree with Dr. Ibarra's present management. We will suggest getting cardiology opinion if the patient can better fit for transcatheter aortic valve replacement. We will continue bronchodilator and antibiotics, fall precaution, sleep apnea precaution. Gastric and deep venous thrombosis prophylaxis. Thank you, and we will follow with you. Jaleesa Martin MD
[2017-04-13] MEDS: Sodium Chloride 0.9% 1,000 ML IV SCH (06:06)
[2017-04-13 06:29] LABS: HEMATOCRIT 29.7 % (36.0-48.0); MEAN CELL VOLUME 72.8 fl (80.0-105.0); MEAN CORPUSCULAR HEMOGLOBIN 23.5 pg (25.0-35.0); MEAN CORPUSCULAR HGB CONC 32.3 g/dl (31.0-37.0); MEAN PLATELET VOLUME 9.3 fl (7.0-11.0); RED CELL DISTRIBUTION WIDTH 16.9 % (11.5-14.5); WHITE BLOOD COUNT 7.2 10^3/ul (4.5-11.0)
[2017-04-13 06:44] LABS: BLOOD UREA NITROGEN 12 mg/dL (7-21); CALCIUM 8.9 mg/dL (8.4-10.5); CARBON DIOXIDE 29 mmol/L (21-33); CHLORIDE 101 mmol/L (98-107); GFR AFRICAN-AMERICAN > 60; GLUCOSE,RANDOM 107 mg/dL (70-110); MAGNESIUM 2.1 mg/dL (1.7-2.2); PHOSPHOROUS 3.6 mg/dL (2.5-4.5); POTASSIUM 3.5 mmol/L (3.6-5.0); SODIUM 140 mmol/L (132-148)
[2017-04-13 06:53] LABS: IRON 20 ug/dL (45-180)
[2017-04-13] MEDS: Insulin Reg-LOW-Coverage SC SCH ×3 (08:46→17:04)
[2017-04-13] MEDS ORDERED: Potassium Chloride 20 mEq ER Tab PO ONE ×2 (09:42→16:53)
[2017-04-13] MEDS: Lidocaine 5% Patch TD SCH (10:21)
[2017-04-13] MEDS: Cholecalciferol 400 Intl Units Tab PO SCH (10:22)
[2017-04-13] MEDS: Tmp-Smz 800 mg-160 mg DS Tab PO SCH ×2 (10:22→17:22)
[2017-04-13] MEDS: Metoprolol Succinate 25 mg XL Tab PO SCH (10:24)
[2017-04-13] MEDS: Levothyroxine 75 MCG TAB PO SCH (10:24)
[2017-04-13] MEDS: Pantoprazole 40 mg EC Tab PO SCH (10:25)
[2017-04-13] MEDS: Multivitamin Vitamin B Complex (Nephro-Vite) Tab PO SCH (10:26)
[2017-04-13] MEDS: Multivitamin Therapeutic Tab PO SCH (10:26)
--- NOTE | 2017-04-13 10:40 | PQF GENQUE ---
This form is a permanent part of the medical record Dr. Ibarra, Patient admitted with c/o dizziness and subsequent fall. She has hx severe aortic stenosis, seizure disorder. Patient found to be slightly anemic, hypokalemic, had Dilantin toxicity. If possible, please specify if any of these factors are the cause of her dizziness, frequent falls. Clarification of your documentation is requested to better reflect the severity of illness and intensity of treatment of your patient. Indicators present ask neuro [] Specify: [] [] Specify: [] [] Specify: [] [] Specify: [] Location in the medical record that reflects the above clinical findings: [] Treatment Provided: [] PHYSICIAN'S RESPONSE Based on your medical judgment of the clinical indicators outlined above please clarify the following: [] Practitioner response [] If unable to determine, please check the box, sign and date. Present On Admission (POA) Indicator: [] Present at the time of admission [] Not present at the time of admission [] Clinically Undetermined In responding to this query, please exercise your independent professional judgment. The fact that a question is asked does not imply that any particular answer is desired or expected. Thank you for your clarification on this documentation. If you have any questions please call:[ ] * Thank you, [ ]Nahed Adler [facility], #[id number] machine cloth examiner ROSEMARIE
[2017-04-13] MEDS: Aritificial Tears (15ml) OU SCH ×4 (11:38→21:52)
[2017-04-13 12:42] LABS: FOLATE 9.4 ng/mL
--- NOTE | 2017-04-13 20:06 | PN ---
PULMONARY PROGRESS NOTE DATE: 04/13/2017 REFERRING PHYSICIAN: Dr. Ibarra SUBJECTIVE: She is lying in the bed at 45 degrees. Just finished her lunch. Feels better. Decreased cough and shortness of breath. No nausea. No vomiting or diarrhea. No leg pain or leg swelling. PHYSICAL EXAMINATION GENERAL: In no acute distress. VITAL SIGNS: Temp is 98, heart rate 84, respiratory rate is 20, blood pressure 138/76 and pulse ox is 97%on room air. HEENT: Moist mucous membranes. Crowded airway. NECK: Supple. No JVD. LUNGS: Has a scattered rhonchi. HEART: S1 and S2 with murmur. ABDOMEN: Soft and nontender. No organomegaly. EXTREMITIES: There is no edema. NEUROLOGIC: Awake and alert. Follows simple commands. MEDICATIONS: She is on Aldactone 25 mg twice a day, artificial tears to both eyes, Bactrim double strength one time twice a day, calcium carbonate 600 mg daily, doxycycline 100 mg twice a day, DuoNeb q. 6 hours, also on IV fluid 100 mL per hour Lasix 20 mg twice a day, Lidoderm patch to the affected area, Lipitor 10 mg daily, milk of magnesia p.r.n. basis, Nephro-vitamins daily, Neurontin 300 mg three times a day, prednisone 20 mg daily, Protonix 40 mg daily, IV fluid normal saline 50 mL per hours, Synthroid 75 mcg daily, multivitamins daily, Toprol-XL 25 mg daily, Ultram 50 mg three times a day, p.r.n. vitamin D 400 international units p.o. daily. LABORATORY DATA: Shows hemoglobin 9.6, hematocrit 29.7, WBC 7.2 and platelets is 499. Sodium 140, potassium 3.5, chloride 101, bicarbonate 29, BUN 12, creatinine 0.5 and glucose 107, calcium 8.9, phosphorus 3.6, magnesium 2.1, iron is 20, ferritin is 10, transferrin 355, vitamin B12 170, folate 9.4. ASSESSMENT AND PLAN: Frequent fall and syncopal episode, severe aortic stenosis, probably component of heart failure, Dilantin toxicity, hypertension,cerebrovascular accident, seizure disorder, diabetes, anemia and with iron deficiency low ferritin. We will continue bronchodilator, keep head at 45 degree. Cardiology followup. We will add IV iron next two days or so. May need GI evaluation to assure the GI loss of iron. Thank you, and we will follow with you. Jaleesa Martin MD
--- NOTE | 2017-04-13 22:30 | CP.PCM.PN ---
Subjective - Date & Time of Evaluation Date of Evaluation: 04/13/17 Time of Evaluation: 22:23 - Subjective Subjective: Patient was seen at bedside for left sided abdominal pain, lower back pain and left knee pain. Has been on Ultram for pain which is not due until 1 AM. Has no other complaints now. ROS:Negative except as mentioned above. Medial record was reviewed. Admitted with bilateral hip and lower extremities pain after multiple falls in a detention,dizziness, chest pain, sob. DM II, COPD, HTN, GERD, Obesity, seizure, severe aortic stenosis, TIA, glaucoma , anemia, b/l ankle fractrues, GI bleeding GI polypectomy, herniorrhaphy. Objective - Vital Signs/Intake and Output Vital Signs (last 24 hours): Temp Pulse Resp BP Pulse Ox 98.6 F 87 21 138/76 97 04/13/17 17:49 04/13/17 18:00 04/13/17 17:49 04/13/17 17:49 04/13/17 06:00 - Medications Medications: Current Medications Albuterol/Ipratropium (Duoneb 3 Mg/0.5 Mg (3 Ml) Ud) 3 ml IH [id number] [facility] Last Admin: 04/13/17 19:57 Dose: 3 ml Artificial Tears (Artificial Tears) 0 ml OU QID [facility] Last Admin: 04/13/17 21:52 Dose: 1 drop Atorvastatin Calcium (Lipitor) 10 mg PO DIN [facility] Last Admin: 04/13/17 17:22 Dose: 10 mg Calcium Carbonate (Caltrate) 600 mg PO DAILY [facility] Last Admin: 04/13/17 10:24 Dose: 600 mg Doxycycline Hyclate (Doryx) 100 mg PO Q12 BO PRN Reason: Protocol Last Admin: 04/13/17 21:52 Dose: 100 mg Furosemide (Lasix) 40 mg PO BID [facility] Last Admin: 04/13/17 17:20 Dose: 40 mg Gabapentin (Neurontin) 300 mg PO TID BO PRN Reason: Protocol Last Admin: 04/13/17 17:23 Dose: 300 mg Sodium Chloride (Sodium Chloride 0.9%) 1,000 mls @ 50 mls/hr IV .Q20H [facility] Last Admin: 04/13/17 06:06 Dose: 50 mls/hr Iron Sucrose 100 mg/ Sodium (Chloride) 105 mls @ 210 mls/hr IVPB DAILY [facility] Last Admin: 04/13/17 19:03 Dose: 210 mls/hr Insulin Human Regular (Humulin R Low) 0 units SC ACHS BO PRN Reason: Protocol Last Admin: 04/13/17 17:04 Dose: Not Given Levothyroxine Sodium (Synthroid) 75 mcg PO DAILY [facility] Last Admin: 04/13/17 10:24 Dose: 75 mcg Lidocaine (Lidoderm) 1 ea TD DAILY [facility] Last Admin: 04/13/17 10:21 Dose: 1 ea Magnesium Hydroxide (Milk Of Magnesia) 30 ml PO HS PRN PRN Reason: Constipation Metoprolol Succinate (Toprol Xl) 25 mg PO DAILY [facility] Last Admin: 04/13/17 10:24 Dose: 25 mg Multivitamins (Thera Tab) 1 tab PO DAILY [facility] Last Admin: 04/13/17 10:26 Dose: 1 tab Pantoprazole Sodium (Protonix Ec Tab) 40 mg PO DAILY [facility] Last Admin: 04/13/17 10:25 Dose: 40 mg Prednisone (Prednisone Tab) 20 mg PO DAILY [facility] Last Admin: 04/13/17 10:25 Dose: 20 mg Spironolactone (Aldactone) 25 mg PO BID [facility] Last Admin: 04/13/17 17:22 Dose: 25 mg Tramadol HCl (Ultram) 50 mg PO TID PRN PRN Reason: Pain, moderate (4-7) Last Admin: 04/13/17 17:23 Dose: 50 mg Trimethoprim/Sulfamethoxazole (Bactrim Ds Tab) 1 tab PO BID BO PRN Reason: Protocol Last Admin: 04/13/17 17:22 Dose: 1 tab Vitamin B Complex/Vit C/Folic Acid (Nephro-Jose) 1 tab PO DAILY [facility] Last Admin: 04/13/17 10:26 Dose: 1 tab Vitamin D (Vitamin D 400 Intl Units Tab) 400 intlu PO DAILY [facility] Last Admin: 04/13/17 10:22 Dose: 400 intlu - Labs Labs: 04/13/17 05:45 04/13/17 05:45 PT 11.3 Seconds (9.9-11.8) 04/11/17 12:00 INR 1.05 (0.93-1.08) 04/11/17 12:00 APTT 31.4 Seconds (23.7-30.8) H 04/11/17 12:00 - Constitutional Appears: Well, No Acute Distress - Head Exam Head Exam: ATRAUMATIC, NORMAL INSPECTION, NORMOCEPHALIC - Eye Exam Eye Exam: Normal appearance - ENT Exam ENT Exam: Normal External Ear Exam - Neck Exam Neck Exam: Normal Inspection - Respiratory Exam Respiratory Exam: Rales - Cardiovascular Exam Cardiovascular Exam: absent: Diastolic murmur - GI/Abdominal Exam GI & Abdominal Exam: Soft (Yes.), Normal Bowel Sounds. absent: Distended, Firm , Guarding, Rigid, Tenderness, Mass, Organomegaly, Pulsatile Mass, Rebound - Rectal Exam Rectal Exam: Deferred - Exam Additional comments: Deferred. - Extremities Exam Extremities Exam: Normal Inspection - Back Exam Back Exam: NORMAL INSPECTION - Neurological Exam Neurological Exam: Alert, Awake, Oriented x3 - Psychiatric Exam Psychiatric exam: Normal Affect, Normal Mood - Skin Skin Exam: Normal Color Assessment and Plan - Assessment and Plan (Free Text) Assessment: Left abdominal pain. Lower back pain. Left knee pain. DM II. HTN. COPD. GERD. Seizure. Anemia. Hx Aortic stenosis. Plan: Ultram 50 mg PO now. Continue present management.
--- NOTE | 2017-04-13 22:55 | PN ---
DATE: 04/13/2017 LOCATION: The patient in room 262, bed 1. REASON FOR CONSULTATION: Followup multiple falls, history of seizure disorder, severe aortic stenosis. SUBJECTIVE: The patient is conscious, alert, moving all extremities. Denies any chest pain, shortness of breath, or palpitations. PHYSICAL EXAMINATION: VITAL SIGNS: Blood pressure 120/66, respirations 18, pulse 80, temperature 97.8. HEENT: Head is normocephalic. Eyes, pupils normal. Conjunctiva slightly pale. NECK: JVP low. Carotids equal. Thorax; AP diameter normal. LUNGS: Clear. CARDIOVASCULAR: S1 and S2. Ejection systolic murmur, grade III/. No rub. ABDOMEN: Soft. No tenderness. No organomegaly. Bowel sounds normal. EXTREMITIES: No clubbing. No cyanosis. LABORATORY DATA: WBC 7.2, hemoglobin 9.6, hematocrit 29.7, platelet 499. Sodium 140, potassium 3.5, BUN 12, creatinine 0.5. Vitamin B12 170, which is low. Folate level is normal. Today's Dilantin level 37, still elevated. DIAGNOSES: Multiple falls, severe aortic stenosis, anemia, B12 level is low, seizure disorder, diabetes, old cerebrovascular accident, hypertension, obstructive sleep apnea, chronic obstructive pulmonary disease, hypothyroidism, gastroesophageal reflux disease, elevated Dilantin, suspicion of Dilantin toxicity, hypokalemia. PLAN: We will give liquid potassium and we will repeat labs in the morning. We will also repeat Dilantin level in the morning. The patient is on spironolactone 25 b.i.d., Doryx 100 mg p.o. q. 12 hours. The patient already received potassium 20 mEq today. We will give another 20 mEq p.o. today, furosemide 40 b.i.d., atorvastatin 10 mg daily, Protonix 40 daily, levothyroxine 75 mcg daily, Toprol XL 25 daily. The patient discussed with me about TAVR for severe aortic stenosis. The patient's blood count is low, so suggest a hematology evaluation before we send the patient for TAVR evaluation and we will discuss with Dr. Ibarra. Jaleesa Beyer MD
[2017-04-14] MEDS: Albuterol-Ipratrop 3 mg / 0.5 (3 ml) UD IH SCH ×4 (01:09→19:59)
--- NOTE | 2017-04-14 02:29 | PN ---
SUBJECTIVE: The patient is a 71-year-old female. The patient was seen and examined on the bedside, lying comfortably. No nausea, vomiting, or diarrhea. Cough is better. Shortness of breath is better. Dizziness is better. Still feeling dyspnea on exertion. PHYSICAL EXAMINATION: VITAL SIGNS: Temperature 98, heart rate 84, respiratory rate is 20, and blood pressure 138/76. Pulse oxymetry 97% on room air. HEENT: Head is normocephalic and atraumatic. Eyes; PERRLA. Extraocular muscles intact. Conjunctivae clear. Nose is patent. Mucous membrane moist. NECK: Supple. No carotid bruit, no JVD, or thyromegaly. LUNGS: Has scattered rhonchi. HEART: S1 and S2 positive with murmur. ABDOMEN: Soft and nontender. No organomegaly. EXTREMITIES: No edema. No cyanosis. NEUROLOGIC: The patient is awake and alert. Follows simple commands. MEDICATIONS: Aldactone, artificial tears, Bactrim double standard for UTI, calcium carbonate, doxycycline, DuoNeb, Lidoderm patch, Nephro-Jose, Neurontin, prednisone, Protonix, Synthroid, multivitamin, Toprol. LABORATORY DATA: Hemoglobin 9.6, hematocrit 29.7, white blood cell 7.2, platelets 499. Sodium 140, potassium 3.5, BUN 12, creatinine 0.5, vitamin B12 of 170, and folate 9.4. ASSESSMENT AND PLAN: Ms. Monroe, my private patient, a resident of [place] , has frequent falls and syncopal episodes, severe aortic stenosis, need TAVR, congestive heart failure, Dilantin toxicity, hypertension, cerebrovascular accident, seizures, hypothyroidism, diabetes mellitus, anemia with iron deficiency with low ferritin. We will continue bronchodilators. Discussion done with Dr. Beyer. We will start IV iron. We will call hematology and GI consult. We will follow up. Mayra Ibarra MD [facility]
[2017-04-14] MEDS: Insulin Reg-LOW-Coverage SC SCH ×5 (04:52→22:00)
[2017-04-14] MEDS: Sodium Chloride 0.9% 1,000 ML IV SCH (04:53)
--- NOTE | 2017-04-14 06:21 | CP.PCM.CON ---
History of Present Illness - History of Present Illness History of Present Illness: full consult will be dictated. Dx: ANEMIA 2* TO IRON DEFICIENCY AND B12 DEFICIENCY. R/O PERNICIOUS ANEMIA AGREE WITH IV IRON..ALREADY STARTED SUGGEST PARENTAL B12...SUBCU B12 INJECTIONS... WILL FOLLOW Past Patient History - Infectious Disease Hx of Infectious Diseases: None - Past Social History Smoking Status: Never Smoked - CARDIAC Hx Cardiac Disorders: Yes (SEVERE AORTIC STENOSIS) Hx Circulatory Problems: Yes Hx Congestive Heart Failure: Yes Hx Hypercholesterolemia: Yes Hx Hypertension: Yes Hx Pacemaker: No - PULMONARY Hx Respiratory Disorders: Yes Hx Chronic Obstructive Pulmonary Disease (COPD): Yes Hx Sleep Apnea: Yes - NEUROLOGICAL Hx Neurological Disorder: Yes HX Cerebrovascular Accident: Yes (RIGHT SIDED WEAKNESS) Hx Dizziness: Yes (SYNCOPE) Hx Seizures: Yes Hx Transient Ischemic Attacks (TIA): Yes Other/Comment: NEUROPATHY - HEENT Hx HEENT Problems: Yes (m) Hx Glaucoma: Yes - RENAL Hx Chronic Kidney Disease: No - ENDOCRINE/METABOLIC Hx Endocrine Disorders: Yes Hx Diabetes Mellitus Type 1: Yes Hx Hypothyroidism: Yes - HEMATOLOGICAL/ONCOLOGICAL Hx Blood Disorders: Yes Hx Anemia: Yes (H/O BLOOD TRANSFUSION) - INTEGUMENTARY Hx Dermatological Problems: Yes Other/Comment: multiple bruises to left abd, left hip, left shoulder and chest, older bruises to b/l lower extremities from knees down,left posterior arm skin discoloration with dry skin, right arm multiple bruising, slight redness to buttocks - MUSCULOSKELETAL/RHEUMATOLOGICAL Hx Musculoskeletal Disorders: Yes Hx Arthritis: Yes Hx Back Pain: Yes Hx Falls: Yes (multiple frequent) Hx Fractures: Yes (CATALINA FX ANKLE) - GASTROINTESTINAL Hx Gastrointestinal Disorders: Yes (GI BLEED,GASTRIC LARGE POLYP REMOVED.01-24-17) Hx Gastroesophageal Reflux: Yes HX Swallowing Problems: Yes (PUREED DIET) Other/Comment: missing teeth - GENITOURINARY/GYNECOLOGICAL Hx Genitourinary Disorders: Yes Hx Incontinence: Yes - PSYCHIATRIC Hx Psychophysiologic Disorder: No Hx Emotional Abuse: No Hx Physical Abuse: No - SURGICAL HISTORY Hx Appendectomy: Yes Other/Comment: herniorrhaphy - ANESTHESIA Hx Anesthesia Reactions: No Hx Malignant Hyperthermia: No Meds Allergies/Adverse Reactions: Allergies Allergy/AdvReac Type Severity Reaction Status Date / Time morphine Allergy VOMITING Verified 04/11/17 11:03 orange Allergy RASH Verified 04/11/17 11:03 Penicillins Allergy RASH Verified 04/11/17 11:03 shellfish derived Allergy ANAPHYLAXIS Verified 04/11/17 11:03 tomato Allergy RASH Verified 04/11/17 11:03 - Medications Medications: Current Medications Albuterol/Ipratropium (Duoneb 3 Mg/0.5 Mg (3 Ml) Ud) 3 ml IH [id number] [facility] Last Admin: 04/14/17 01:09 Dose: 3 ml Artificial Tears (Artificial Tears) 0 ml OU QID [facility] Last Admin: 04/13/17 21:52 Dose: 1 drop Atorvastatin Calcium (Lipitor) 10 mg PO DIN [facility] Last Admin: 04/13/17 17:22 Dose: 10 mg Calcium Carbonate (Caltrate) 600 mg PO DAILY [facility] Last Admin: 04/13/17 10:24 Dose: 600 mg Furosemide (Lasix) 40 mg PO BID [facility] Last Admin: 04/13/17 17:20 Dose: 40 mg Gabapentin (Neurontin) 300 mg PO TID BO PRN Reason: Protocol Last Admin: 04/13/17 17:23 Dose: 300 mg Sodium Chloride (Sodium Chloride 0.9%) 1,000 mls @ 50 mls/hr IV .Q20H [facility] Last Admin: 04/14/17 04:53 Dose: 50 mls/hr Iron Sucrose 100 mg/ Sodium (Chloride) 105 mls @ 210 mls/hr IVPB DAILY [facility] Last Admin: 04/13/17 19:03 Dose: 210 mls/hr Insulin Human Regular (Humulin R Low) 0 units SC ACHS [facility] PRN Reason: Protocol Last Admin: 04/14/17 04:52 Dose: Not Given Levothyroxine Sodium (Synthroid) 75 mcg PO DAILY [facility] Last Admin: 04/13/17 10:24 Dose: 75 mcg Lidocaine (Lidoderm) 1 ea TD DAILY [facility] Last Admin: 04/13/17 10:21 Dose: 1 ea Magnesium Hydroxide (Milk Of Magnesia) 30 ml PO HS PRN PRN Reason: Constipation Metoprolol Succinate (Toprol Xl) 25 mg PO DAILY [facility] Last Admin: 04/13/17 10:24 Dose: 25 mg Multivitamins (Thera Tab) 1 tab PO DAILY [facility] Last Admin: 04/13/17 10:26 Dose: 1 tab Pantoprazole Sodium (Protonix Ec Tab) 40 mg PO DAILY [facility] Last Admin: 04/13/17 10:25 Dose: 40 mg Prednisone (Prednisone Tab) 20 mg PO DAILY [facility] Last Admin: 04/13/17 10:25 Dose: 20 mg Spironolactone (Aldactone) 25 mg PO BID [facility] Last Admin: 04/13/17 17:22 Dose: 25 mg Tramadol HCl (Ultram) 50 mg PO TID PRN PRN Reason: Pain, moderate (4-7) Last Admin: 04/14/17 01:56 Dose: 50 mg Trimethoprim/Sulfamethoxazole (Bactrim Ds Tab) 1 tab PO BID [facility] PRN Reason: Protocol Last Admin: 04/13/17 17:22 Dose: 1 tab Vitamin B Complex/Vit C/Folic Acid (Nephro-Jose) 1 tab PO DAILY [facility] Last Admin: 04/13/17 10:26 Dose: 1 tab Vitamin D (Vitamin D 400 Intl Units Tab) 400 intlu PO DAILY [facility] Last Admin: 04/13/17 10:22 Dose: 400 intlu Results - Vital Signs Recent Vital Signs: Last Vital Signs Temp 98.6 F 04/13/17 17:49 Pulse 87 04/14/17 02:00 Resp 21 04/13/17 17:49 BP 138/76 04/13/17 17:49 Pulse Ox 97 04/13/17 06:00 - Labs Result Diagrams: 04/13/17 05:45 04/13/17 05:45 Labs: Laboratory Results - last 24 hr 04/13/17 04/13/17 04/13/17 05:45 05:45 05:45 WBC 7.2 D RBC 4.08 Hgb 9.6 L Hct 29.7 L MCV 72.8 L MCH 23.5 L MCHC 32.3 RDW 16.9 H Plt Count 499 H MPV 9.3 Sodium 140 Potassium 3.5 L Chloride 101 Carbon Dioxide 29 Anion Gap 14 BUN 12 Creatinine 0.5 Est GFR ( Amer) > 60 Est GFR (Non-Af Amer) > 60 POC Glucose (mg/dL) Random Glucose 107 Calcium 8.9 Phosphorus 3.6 Magnesium 2.1 Iron 20 L TIBC 420 % Saturation 5 L Transferrin Ferritin 10.2 Vitamin B12 170 L Folate 9.4 Phenytoin 04/13/17 04/13/17 04/13/17 05:45 05:45 07:35 WBC RBC Hgb Hct MCV MCH MCHC RDW Plt Count MPV Sodium Potassium Chloride Carbon Dioxide Anion Gap BUN Creatinine Est GFR ( Amer) Est GFR (Non-Af Amer) POC Glucose (mg/dL) 102 Random Glucose Calcium Phosphorus Magnesium Iron TIBC % Saturation Transferrin 355.84 Ferritin Vitamin B12 Folate Phenytoin 37 H* 04/13/17 04/13/17 04/13/17 11:15 16:02 21:15 WBC RBC Hgb Hct MCV MCH MCHC RDW Plt Count MPV Sodium Potassium Chloride Carbon Dioxide Anion Gap BUN Creatinine Est GFR ( Amer) Est GFR (Non-Af Amer) POC Glucose (mg/dL) 124 H 134 H 139 H Random Glucose Calcium Phosphorus Magnesium Iron TIBC % Saturation Transferrin Ferritin Vitamin B12 Folate Phenytoin
[2017-04-14 06:32] LABS: BLOOD UREA NITROGEN 12 mg/dL (7-21); CALCIUM 8.5 mg/dL (8.4-10.5); CARBON DIOXIDE 26 mmol/L (21-33); CHLORIDE 100 mmol/L (95-110); GFR AFRICAN-AMERICAN > 60; GLUCOSE,RANDOM 101 mg/dL (70-110); MAGNESIUM 1.9 mg/dL (1.7-2.2); PHOSPHOROUS 3.2 mg/dL (2.5-4.5); POTASSIUM 3.3 mmol/L (3.6-5.0); SODIUM 136 mmol/L (132-148)
[2017-04-14] MEDS ORDERED: Potassium Chloride 20 mEq ER Tab PO ONE (08:28)
[2017-04-14] MEDS: Tmp-Smz 800 mg-160 mg DS Tab PO SCH ×2 (10:12→17:37)
[2017-04-14] MEDS: Levothyroxine 75 MCG TAB PO SCH (10:12)
[2017-04-14] MEDS: Multivitamin Vitamin B Complex (Nephro-Vite) Tab PO SCH (10:13)
[2017-04-14] MEDS: Pantoprazole 40 mg EC Tab PO SCH (10:13)
[2017-04-14] MEDS: Lidocaine 5% Patch TD SCH (10:21)
[2017-04-14] MEDS: Metoprolol Succinate 25 mg XL Tab PO SCH (10:21)
[2017-04-14] MEDS: Aritificial Tears (15ml) OU SCH ×4 (10:22→21:33)
[2017-04-14] MEDS: Multivitamin Therapeutic Tab PO SCH (10:22)
[2017-04-14] MEDS: Cholecalciferol 400 Intl Units Tab PO SCH (10:30)
[2017-04-14] MEDS: Magnesium Hydroxide Susp 30 ml UD PO PRN (21:33)
--- NOTE | 2017-04-14 22:25 | PN ---
DATE: 04/14/2017 LOCATION: The patient in [facility], bed 1. REASON FOR CONSULTATION: Multiple falls and history for seizure disorder, severe aortic stenosis. SUBJECTIVE: The patient denies any chest pain, shortness of breath, or palpitations. She complains of pain in the lower back and left hip and leg. The patient is lying flat in bed without any respiratory distress. PHYSICAL EXAMINATION: VITAL SIGNS: Blood pressure 122/67, respiration 20, pulse 82, temperature 98.3. HEENT: Head is normocephalic. Eyes: Pupils are normal. Conjunctiva is slightly pale. NECK: JVP low. Carotid equal. THORAX: AP diameter normal. LUNGS: Clear. CARDIOVASCULAR: S1 and S2 good. III/ ejection systolic murmur. No rub. ABDOMEN: Soft. No organomegaly. EXTREMITIES: No clubbing. No cyanosis. LABORATORY DATA: WBC 7.2, hemoglobin 9.6, hematocrit 29.7, platelet 499. Sodium 136, potassium 3.3, BUN 12, creatinine 0.6, random sugar 153. Calcium, phosphorus, and magnesium is normal. Dilantin level is 30, still elevated. DIAGNOSIS: Multiple falls, seizures, aortic stenosis, anemia, B12 deficiency, seizure disorder, diabetes, old cerebrovascular accident, hypertension, obstruction sleep apnea, chronic obstructive pulmonary disease, hypothyroidism, gastroesophageal reflux disease, elevated Dilantin level consisting of Dilantin toxicity, hypokalemia. PLAN: The patient is already getting Venofer and also B12 injection being started. We will give potassium therapy. We will repeat lab in the morning. The patient agrees for TAVR evaluation, so I am making arrangement for Monday to transfer to [facility]. In the meantime, she need to go her anemia and her Dilantin toxicity, so we have to followup the Dilantin level and we will continue other medications as are ordered, Spironolactone 25 mg b.i.d., calcium carbonate 600 mg p.o. daily, DuoNeb 10 mL therapy, Venofer 200 mg IV, 40 mEq of potassium already given today, furosemide 40 mg b.i.d., Lipitor 10 daily, Neurontin 300 mg t.i.d., prednisone 20 mg daily, Protonix 40 mg daily, sodium chloride 0.9 saline 50 mL an hour, Synthroid 75 mcg p.o. daily, Toprol XL 25 mg daily, Venofer 200 mg IV daily, Dr. Gray ordered two bags, vitamin B12 injection 100 mcg subcutaneous daily. We will follow. Jaleesa Beyer MD
--- NOTE | 2017-04-14 22:31 | PN ---
DATE: 04/14/2017 SUBJECTIVE: The patient is a 71-year-old female. The patient is seen and examined at the bedside, looking comfortable. No nausea, vomiting, or diarrhea. No hematuria or hematochezia. No swelling of the leg, complaining about pains and aches, and having dyspnea on exertion. PHYSICAL EXAMINATION VITAL SIGNS: Temperature 98.3, pulse 70, blood pressure 115/70, respiratory rate 20. HEENT: Head normocephalic and atraumatic. Eyes, PERRLA. Extraocular muscles intact. Conjunctivae are clear. Nose is patent. Mucous membrane moist. NECK: Supple. No carotid bruits. No JVD or thyromegaly. CHEST: Bilateral symmetrical. HEART: S1 and S2 positive. LUNGS: Clear to auscultation. ABDOMEN: Soft. Bowel sounds positive. No organomegaly. EXTREMITIES: No edema, no cyanosis. NEUROLOGICAL: The patient is awake and alert. Moving all 4 extremities. No focal deficit. LABORATORY DATA: White blood cell is 7.2, hemoglobin 9.6, hematocrit 29.7, platelets 499. Sodium 138, potassium 3.3, BUN 12, creatinine 0.6, and glucose 143. MEDICATIONS: Aldactone, Artificial Tears, Bactrim, Caltrate, albuterol/ipratropium, insulin, Carafate, Lasix, Lipitor, Milk of Magnesia, and vitamins. ASSESSMENT AND PLAN: Ms. Ann-Marie Monroe is a 71-year-old lady with hypokalemia replaced, diabetes mellitus, iron and B12 deficiency anemia, getting B12 and iron replaced, Hematology, Dr. Coello is on the case. Dilantin level is 30 today, trending down. The patient's dizziness is better. History of frequent falls with syncopal episodes, aortic stenosis, and needed TAVR, congestive heart failure, hypertension, cerebrovascular accident, seizures, and hypothyroidism. We will continue bronchodilators. Monday, the patient is going back to [facility] for TAVR. GI and DVT prophylaxis, repeat labs. We will follow up. Mayra Ibarra MD
--- NOTE | 2017-04-15 01:10 | PN ---
PULMONARY PROGRESS NOTE DATE: 04/14/2017 REFERRING PHYSICIAN: Dr. Ibarra. SUBJECTIVE: She is lying in the bed, sleepy, arousable, mild cough. No much sputum production. No nausea. No vomiting. No diarrhea, leg pain, or leg swelling. OBJECTIVE: GENERAL: In no acute distress. VITAL SIGNS: Temp is 98, heart rate is 77, respiratory rate is 20, blood pressure 115/70 and pulse ox 95% on room air. HEENT: Moist mucous membranes. Crowded airway. Mallampati score is 4. NECK: Supple. No JVD. LUNGS: Has diffuse scattered rhonchi, few crackles. HEART: S1 and S2. ABDOMEN: Soft and nontender. No organomegaly. EXTREMITIES: No edema. NEUROLOGIC: Awake and alert. Follows simple commands. MEDICATIONS: She is on Aldactone 25 mg twice a day, Artificial tears to both eyes, triamterene with sulfamethoxazole, which is Bactrim 1 tab twice a day, calcium citrate 600 mg daily, DuoNeb q. 3 hours, insulin coverage, iron IV daily, potassium 10 mEq daily, Lasix 40 mg twice a day, Lidoderm patch daily, Lipitor 10 mg daily, milk of magnesia 30 mL at bedtime p.r.n., Nephro vitamins daily, Neurontin 300 mg 3 times a day, prednisone 20 mg daily, Protonix 40 mg daily, IV fluid with normal saline 50 mL per hour, Synthroid 75 mcg daily, multivitamins daily, Toprol XL 25 mg daily, Ultram 50 mg 3 times a day, vitamin B12 of 1000 mcg daily, vitamin D 400 internation units daily. LABORATORY DATA: Shows hemoglobin 9.6, hematocrit 29.7, WBC 7.2 and platelet is 499. Sodium 136, potassium 3.3, chloride 100, bicarbonate 26, BUN 12, creatinine 0.6, glucose 101, calcium 8.5, phosphorus 3.2 and magnesium 1.9. IMPRESSION AND PLAN: Frequent fall with syncopal episodes, severe aortic stenosis, probably component of heart failure, Dilantin toxicity, hypertension, cerebrovascular accident, seizure disorder, diabetes, anemia, has iron deficiency, low ferritin. Pulmonary point of view, doing okay. Continue p.o. inhaled bronchodilator. Keep head at 45 degrees. Getting IV iron. We will get Dilantin level mainly to restart Dilantin. Thank you and we will follow with you. Jaleesa Martin MD [facility] # [id number]
[2017-04-15] MEDS: Albuterol-Ipratrop 3 mg / 0.5 (3 ml) UD IH SCH ×5 (02:05→19:22)
[2017-04-15 06:59] LABS: BASO # 0.04 K/mm3 (0.0-2.0); BASO % 0.4 % (0.0-3.0); EOS # 0.4 (0.0-0.7); EOS % 3.9 % (1.5-5.0); GRAN # 5.79 (1.4-6.5); GRAN % 63.2 % (50.0-68.0); HEMATOCRIT 28.9 % (36.0-48.0); LYMPH # 1.8 (1.2-3.4); LYMPH % 19.4 % (22.0-35.0); MEAN CELL VOLUME 72.8 fl (80.0-105.0); MEAN CORPUSCULAR HEMOGLOBIN 23.4 pg (25.0-35.0); MEAN CORPUSCULAR HGB CONC 32.2 g/dl (31.0-37.0); MEAN PLATELET VOLUME 9.5 fl (7.0-11.0); MONO # 1.2 (0.1-0.6); MONO % 13.1 % (1.0-6.0); WHITE BLOOD COUNT 9.2 10^3/ul (4.5-11.0)
[2017-04-15 07:02] LABS: BLOOD UREA NITROGEN 15 mg/dL (7-21); CALCIUM 8.8 mg/dL (8.4-10.5); CARBON DIOXIDE 27 mmol/L (21-33); CHLORIDE 99 mmol/L (98-107); GFR AFRICAN-AMERICAN > 60; GLUCOSE,RANDOM 103 mg/dL (70-110); MAGNESIUM 2.2 mg/dL (1.7-2.2); PHOSPHOROUS 3.9 mg/dL (2.5-4.5); POTASSIUM 3.8 mmol/L (3.6-5.0); SODIUM 135 mmol/L (132-148)
[2017-04-15] MEDS: Insulin Reg-LOW-Coverage SC SCH ×4 (07:48→21:05)
[2017-04-15] MEDS: Potassium Chloride 10 mEq ER Tab PO SCH (08:06)
[2017-04-15] MEDS: Aritificial Tears (15ml) OU SCH ×3 (10:00→21:00)
[2017-04-15] MEDS: Multivitamin Therapeutic Tab PO SCH (10:02)
[2017-04-15] MEDS: Levothyroxine 75 MCG TAB PO SCH (10:02)
[2017-04-15] MEDS: Pantoprazole 40 mg EC Tab PO SCH (10:02)
[2017-04-15] MEDS: Tmp-Smz 800 mg-160 mg DS Tab PO SCH ×2 (10:02→17:24)
[2017-04-15] MEDS: Multivitamin Vitamin B Complex (Nephro-Vite) Tab PO SCH (10:02)
[2017-04-15] MEDS: Metoprolol Succinate 25 mg XL Tab PO SCH (10:03)
[2017-04-15] MEDS: Lidocaine 5% Patch TD SCH (10:04)
[2017-04-15] MEDS: Cholecalciferol 400 Intl Units Tab PO SCH (10:04)
[2017-04-15] MEDS: POLYETHYLENE GLYCOL 3350 17 GM/Dose PACKET PO SCH (15:31)
--- NOTE | 2017-04-15 17:22 | PN ---
DATE: 04/14/2017 LOCATION: The patient is in room 262, bed 1. REASON FOR CONSULTATION: Multiple falls, history of seizure disorder, severe aortic stenosis. SUBJECTIVE: The patient is laying flat in bed without chest pain, shortness of breath, or palpitations. She complains of left hip and left leg pain. PHYSICAL EXAMINATION: VITAL SIGNS: Blood pressure 117/65, respirations 20, pulse 85, and temperature 97.8. HEENT: Head is normocephalic. Eyes; pupils are normal. Conjunctivae was slightly pale. NECK: JVP low. Carotid equal. Thorax, AP diameter normal. LUNGS: Clear. CARDIOVASCULAR: S1 and S2. Ejection systolic murmur, grade 3/6. No rub. ABDOMEN: Soft, nontender. No organomegaly. Bowel sounds are normal. EXTREMITIES: No clubbing or cyanosis. LABORATORY DATA: WBC 9.2, hemoglobin 9.3, hematocrit 28.9, and platelet 511. Sodium 135, potassium 3.8, BUN 15, creatinine 0.7, random sugar 127. Calcium, phosphorus, and magnesium are normal. DIAGNOSES: Multiple falls, seizure disorder, severe aortic stenosis, anemia, B12 deficiency, diabetes, old CVA, hypertension, obstructive sleep apnea, chronic obstructive pulmonary disease, hypothyroidism, gastroesophageal reflux disease, elevated Dilantin level consistent with Dilantin toxicity. Today's Dilantin level is 34, which is still high. PLAN: We will repeat CBC and Dilantin level in the morning. In the meantime, we will continue present therapy. The patient is taking IV fluids 50 mL an hour, Synthroid 75 mcg daily, gabapentin 300 mg p.o. t.i.d, Lipitor 10 mg daily, furosemide 40 b.i.d., potassium 10 mEq daily, Venofer 200 mg IV was given. The patient is also getting vitamin B12 injections. The plan is to send the patient on Monday to [facility] for evaluation for TAVR and we will continue to follow closely with you. Jaleesa Beyer MD
[2017-04-15] MEDS: Sodium Chloride 0.9% 1,000 ML IV SCH (17:46)
--- NOTE | 2017-04-15 21:54 | PN ---
DATE: 04/15/2017 PULMONARY PROGRESS NOTE REFERRING PHYSICIAN: Dr. Ibarra. SUBJECTIVE: She is lying in the bed, head at 45 degrees, sleepy, arousable. Decreased cough. Decreased shortness of breath. No nausea. No vomiting. No diarrhea. No leg back pain. No leg swelling. OBJECTIVE: GENERAL: In no acute distress. VITAL SIGNS: Temperature is 98, heart rate is 84, respiratory rate is 20, blood pressure 108/70, and pulse ox 98% on room air. HEENT: Moist mucous membranes. No oral thrush noted. NECK: Supple. No JVD. LUNGS: Fair airflow with a few rhonchi. HEART: S1 and S2 with murmur. ABDOMEN: Soft and nontender. No organomegaly. EXTREMITIES: There is no edema. NEUROLOGIC: Awake, alert, and follows simple commands. MEDICATIONS: She is on Aldactone 25 mg twice a day, Artificial Tears q.i.d., Bactrim double strength one tablet twice a day, calcium carbonate 600 mg daily, albuterol/Atrovent nebulizer q.6 hours, insulin coverage, iron sucrose 200 mg daily, potassium 10 mEq daily, Lasix 40 mg twice a day, Lidoderm patch to affected areas, Lipitor 10 mg daily, milk of magnesia p.r.n. basis, MiraLax 17 gram daily, Nephro vitamins daily, Neurontin 300 mg three times a day, prednisone 20 mg daily, Protonix 40 mg daily, IV fluid with normal saline 50 mL per hour, Synthroid 75 mcg daily, multivitamins daily, Toprol XL 25 mg daily, Ultram 50 mg 3 times daily p.r.n., vitamin B12 1000 mcg daily, and vitamin D 400 international units daily. LABORATORY DATA: Shows hemoglobin 9.3, hematocrit 28.9, WBC 9.2, and platelet is 511. Sodium 135, potassium 2.8, chloride 99, bicarbonate 27, BUN 15, creatinine 0.7, glucose 127, calcium 8.8, phosphorus 3.9, and magnesium 2.2. IMPRESSION AND PLAN: Frequent fall with syncopal episodes, severe aortic stenosis, probably component of heart failure; Dilantin toxicity, hypertension, history of cerebrovascular accident, seizure disorder, diabetes, anemia, iron deficiency anemia, had a low ferritin. Pulmonary point of view, doing okay. We will discontinue IV fluids, continue bronchodilator, decrease prednisone to 10 mg daily, continue antibiotics. Last Dilantin leve today was 34, being followed by cardiology. Thank you and we will follow with you. Jaleesa Martin, MDDD: 04/15/2017 16:02:10
[2017-04-16] MEDS: Albuterol-Ipratrop 3 mg / 0.5 (3 ml) UD IH SCH ×4 (01:39→19:17)
--- NOTE | 2017-04-16 02:07 | PN ---
DATE: 04/15/2017 SUBJECTIVE: The patient is a 71 years old female. The patient is seen and examined at the bedside, looking comfortable. No nausea, vomiting, or diarrhea. No hematuria or hematochezia. No headache. No dizziness. No more fall in the hospital and no seizures, still complaining of pain in the left hip and left leg. PHYSICAL EXAMINATION: VITAL SIGNS: Temperature 97.6, blood pressure 120/60, respiratory rate 20 and pulse oxymetry 80. HEENT: Head normocephalic and atraumatic. Eyes, PERRLA. Extraocular muscles intact. Conjunctivae are clear. Nose is patent. Mucous membrane moist. NECK: Supple. No carotid bruits. No JVD or thyromegaly. CHEST: Bilateral symmetrical. HEART: S1 and S2 positive. LUNGS: Clear to auscultation. ABDOMEN: Soft. Bowel sounds positive. No organomegaly. EXTREMITIES: No edema, no cyanosis. NEUROLOGICAL: The patient is awake and alert. Moving all 4 extremities. No focal deficit. MEDICATIONS: Reviewed by me. LABORATORY DATA: White blood cell is 9.3, hemoglobin 9.3, hematocrit 28.9 and platelets 511. Potassium 3.8, BUN 15, creatinine 0.7 and random sugar 127. ASSESSMENT AND PLAN: Ms. Mabel Jacobsen is 71-year-old lady, resident of [place] had , seizure disorders, anemia, status post blood transfusion, iron deficiency, severe aortic stenosis, B12 deficiency, diabetes mellitus uncontrolled, old cerebrovascular accident, hypertension, obstructive sleep apnea syndrome, chronic obstructive pulmonary disease, gastroesophageal reflux disease. Dilantin level toxicity. Today's Dilantin level is 3.4, still we are holding the patient's Dilantin. Repeat labs. Getting IV fluids. Synthroid for hypothyroidism, gabapentin for peripheral neuropathy, Lipitor for hypercholesterolemia, getting furosemide and potassium because of congestive heart failure, Venofer for iron deficiency anemia, getting injections of B12 also. Gastrointestinal and deep venous thrombosis prophylaxis, repeat labs and we will followup. Mayra Ibarra MD [facility]
[2017-04-16] MEDS: Insulin Reg-LOW-Coverage SC SCH ×3 (07:58→16:53)
[2017-04-16] MEDS: Potassium Chloride 10 mEq ER Tab PO SCH (08:43)
[2017-04-16] MEDS: Tmp-Smz 800 mg-160 mg DS Tab PO SCH ×3 (10:11→21:47)
[2017-04-16] MEDS: Aritificial Tears (15ml) OU SCH ×4 (10:11→21:41)
[2017-04-16] MEDS: POLYETHYLENE GLYCOL 3350 17 GM/Dose PACKET PO SCH (10:13)
[2017-04-16] MEDS: Lidocaine 5% Patch TD SCH (10:13)
[2017-04-16] MEDS: Multivitamin Vitamin B Complex (Nephro-Vite) Tab PO SCH (10:13)
[2017-04-16] MEDS: Pantoprazole 40 mg EC Tab PO SCH (10:14)
[2017-04-16] MEDS: Metoprolol Succinate 25 mg XL Tab PO SCH (10:14)
[2017-04-16] MEDS: Multivitamin Therapeutic Tab PO SCH (10:14)
[2017-04-16] MEDS: Levothyroxine 75 MCG TAB PO SCH (10:14)
[2017-04-16] MEDS: Cholecalciferol 400 Intl Units Tab PO SCH (10:15)
--- NOTE | 2017-04-16 14:56 | CP.PCM.CON ---
History of Present Illness - History of Present Illness History of Present Illness: this 71-year-old has come resident with his severaortic stenosi and history of anemia status post removal of the large gastric polyp prolapsing into the duodenum was transferred to [facility] for history of frequent falls and dizziness and shortness of breath. Patient was found to have elevated Dilantin level. Patient was also found to be anemic a GI consult was requested to evaluate.. Patient had a large gastric polyp in the antrum prolapsing into the duodenum was removed in January. The polyp was ulcerated it showed a focus of intestinal metaplasia with low-grade dysplasia the resected margin were clear of any dysplastic changes. Patient was also found to be iron deficiency and also B12 deficiency.. Since the endoscopy mucosal resection of the large polyp, patient was able to tolerate soft diet. Patient did have an endoscopy in July 2016 when she presented with severe anemia this endoscopy showed the prolapsing large polyp into the duodenum. The polyp was removed in January 2017 it measured nearly 3 cm large polyp prolapsing into the duodenum. Patient needed to have colonoscopy in September 2016 was found to have only redundant colon diverticulosis and hemorrhoids Patient is feeling much better and tolerating food well denies any abdominal pain no bleeding per rectum or melena no vomiting blood OTHER POSSIBILITY HISTORY as above COPD obstructive sleep apnea seizure disorder , status post a CVA TIA, CHF, SOCIAL HISTORY nonsmoker nondrinker FAMILY HISTORY noncontributory REVIEW OF THE SYSTEM positive as above other systems reviewed Past Patient History - Infectious Disease Hx of Infectious Diseases: None - Past Social History Smoking Status: Never Smoked - CARDIAC Hx Cardiac Disorders: Yes (SEVERE AORTIC STENOSIS) Hx Circulatory Problems: Yes Hx Congestive Heart Failure: Yes Hx Hypercholesterolemia: Yes Hx Hypertension: Yes Hx Pacemaker: No - PULMONARY Hx Respiratory Disorders: Yes Hx Chronic Obstructive Pulmonary Disease (COPD): Yes Hx Sleep Apnea: Yes - NEUROLOGICAL Hx Neurological Disorder: Yes HX Cerebrovascular Accident: Yes (RIGHT SIDED WEAKNESS) Hx Dizziness: Yes (SYNCOPE) Hx Seizures: Yes Hx Transient Ischemic Attacks (TIA): Yes Other/Comment: NEUROPATHY - HEENT Hx HEENT Problems: Yes (m) Hx Glaucoma: Yes - RENAL Hx Chronic Kidney Disease: No - ENDOCRINE/METABOLIC Hx Endocrine Disorders: Yes Hx Diabetes Mellitus Type 1: Yes Hx Hypothyroidism: Yes - HEMATOLOGICAL/ONCOLOGICAL Hx Blood Disorders: Yes Hx Anemia: Yes (H/O BLOOD TRANSFUSION) - INTEGUMENTARY Hx Dermatological Problems: Yes Other/Comment: multiple bruises to left abd, left hip, left shoulder and chest, older bruises to b/l lower extremities from knees down,left posterior arm skin discoloration with dry skin, right arm multiple bruising, slight redness to buttocks - MUSCULOSKELETAL/RHEUMATOLOGICAL Hx Musculoskeletal Disorders: Yes Hx Arthritis: Yes Hx Back Pain: Yes Hx Falls: Yes (multiple frequent) Hx Fractures: Yes (CATALINA FX ANKLE) - GASTROINTESTINAL Hx Gastrointestinal Disorders: Yes (GI BLEED,GASTRIC LARGE POLYP REMOVED.01-24-17) Hx Gastroesophageal Reflux: Yes HX Swallowing Problems: Yes (PUREED DIET) Other/Comment: missing teeth - GENITOURINARY/GYNECOLOGICAL Hx Genitourinary Disorders: Yes Hx Incontinence: Yes - PSYCHIATRIC Hx Psychophysiologic Disorder: No Hx Emotional Abuse: No Hx Physical Abuse: No - SURGICAL HISTORY Hx Appendectomy: Yes Other/Comment: herniorrhaphy - ANESTHESIA Hx Anesthesia Reactions: No Hx Malignant Hyperthermia: No Meds Allergies/Adverse Reactions: Allergies Allergy/AdvReac Type Severity Reaction Status Date / Time morphine Allergy VOMITING Verified 04/11/17 11:03 orange Allergy RASH Verified 04/11/17 11:03 Penicillins Allergy RASH Verified 04/11/17 11:03 shellfish derived Allergy ANAPHYLAXIS Verified 04/11/17 11:03 tomato Allergy RASH Verified 04/11/17 11:03 - Medications Medications: Current Medications Albuterol/Ipratropium (Duoneb 3 Mg/0.5 Mg (3 Ml) Ud) 3 ml IH [id number] [facility] Last Admin: 04/14/17 19:59 Dose: 3 ml Artificial Tears (Artificial Tears) 0 ml OU QID [facility] Last Admin: 04/14/17 17:37 Dose: 1 drop Atorvastatin Calcium (Lipitor) 10 mg PO DIN [facility] Last Admin: 04/14/17 17:34 Dose: 10 mg Calcium Carbonate (Caltrate) 600 mg PO DAILY [facility] Last Admin: 04/14/17 10:13 Dose: 600 mg Cyanocobalamin (Vitamin B12 1000 Mcg/Ml Inj) 1,000 mcg SC DAILY [facility] Stop: 04/18/17 10:00 Last Admin: 04/14/17 14:01 Dose: 1,000 mcg Furosemide (Lasix) 40 mg PO BID [facility] Last Admin: 04/14/17 17:42 Dose: 40 mg Gabapentin (Neurontin) 300 mg PO TID [facility] PRN Reason: Protocol Last Admin: 04/14/17 17:33 Dose: 300 mg Sodium Chloride (Sodium Chloride 0.9%) 1,000 mls @ 50 mls/hr IV .Q20H [facility] Last Admin: 04/14/17 04:53 Dose: 50 mls/hr Iron Sucrose 200 mg/ Sodium (Chloride) 110 mls @ 110 mls/hr IVPB DAILY [facility] Stop: 04/16/17 10:59 Insulin Human Regular (Humulin R Low) 0 units SC ACHS BO PRN Reason: Protocol Last Admin: 04/14/17 17:32 Dose: 1 units Levothyroxine Sodium (Synthroid) 75 mcg PO DAILY [facility] Last Admin: 04/14/17 10:12 Dose: 75 mcg Lidocaine (Lidoderm) 1 ea TD DAILY [facility] Last Admin: 04/14/17 10:21 Dose: 1 ea Magnesium Hydroxide (Milk Of Magnesia) 30 ml PO HS PRN PRN Reason: Constipation Metoprolol Succinate (Toprol Xl) 25 mg PO DAILY [facility] Last Admin: 04/14/17 10:21 Dose: 25 mg Multivitamins (Thera Tab) 1 tab PO DAILY [facility] Last Admin: 04/14/17 10:22 Dose: 1 tab Pantoprazole Sodium (Protonix Ec Tab) 40 mg PO DAILY [facility] Last Admin: 04/14/17 10:13 Dose: 40 mg Potassium Chloride (Klor-Con 10) 10 meq PO BRK [facility] Prednisone (Prednisone Tab) 20 mg PO DAILY [facility] Last Admin: 04/14/17 10:13 Dose: 20 mg Spironolactone (Aldactone) 25 mg PO BID [facility] Last Admin: 04/14/17 17:33 Dose: 25 mg Tramadol HCl (Ultram) 50 mg PO TID PRN PRN Reason: Pain, moderate (4-7) Last Admin: 04/14/17 17:37 Dose: 50 mg Trimethoprim/Sulfamethoxazole (Bactrim Ds Tab) 1 tab PO BID BO PRN Reason: Protocol Last Admin: 04/14/17 17:37 Dose: 1 tab Vitamin B Complex/Vit C/Folic Acid (Nephro-Jose) 1 tab PO DAILY [facility] Last Admin: 04/14/17 10:13 Dose: 1 tab Vitamin D (Vitamin D 400 Intl Units Tab) 400 intlu PO DAILY [facility] Last Admin: 04/14/17 10:30 Dose: 400 intlu Physical Exam - Head Exam Head Exam: ATRAUMATIC - Eye Exam Eye Exam: EOMI, PERRL. absent: Scleral icterus - ENT Exam ENT Exam: Mucous Membranes Moist - Neck Exam Neck exam: Positive for: Full Rom. Negative for: Lymphadenopathy - Respiratory Exam Respiratory Exam: NORMAL BREATHING PATTERN. absent: Rales, Rhonchi - Cardiovascular Exam Cardiovascular Exam: +S1, +S2. absent: JVD - GI/Abdominal Exam GI & Abdominal Exam: Normal Bowel Sounds. absent: Mass - Extremities Exam Extremities exam: Positive for: normal capillary refill. Negative for: calf tenderness, tenderness - Back Exam Back exam: NORMAL INSPECTION - Neurological Exam Neurological exam: Alert, Oriented x3 Results - Vital Signs Recent Vital Signs: Last Vital Signs Temp 98.3 F 04/14/17 18:00 Pulse 77 04/14/17 18:00 Resp 20 04/14/17 18:00 BP 115/70 04/14/17 18:00 Pulse Ox 95 04/14/17 06:00 - Labs Result Diagrams: 04/15/17 06:00 04/15/17 06:00 Labs: Laboratory Results - last 24 hr 04/14/17 04/14/17 04/14/17 05:30 05:30 07:25 Sodium 136 Potassium 3.3 L Chloride 100 Carbon Dioxide 26 Anion Gap 13 BUN 12 Creatinine 0.6 Est GFR ( Amer) > 60 Est GFR (Non-Af Amer) > 60 POC Glucose (mg/dL) 101 Random Glucose 101 Calcium 8.5 Phosphorus 3.2 Magnesium 1.9 Phenytoin 30 H* 04/14/17 04/14/17 11:11 16:25 Sodium Potassium Chloride Carbon Dioxide Anion Gap BUN Creatinine Est GFR ( Amer) Est GFR (Non-Af Amer) POC Glucose (mg/dL) 143 H 153 H Random Glucose Calcium Phosphorus Magnesium Phenytoin Assessment & Plan - Assessment and Plan (Free Text) Assessment: this 71-year-old snf resident with multiple comorbidities admitted following recurrent falls shortness of breath and dizziness. Patient was found to have elevated Dilantin level, and also found to be severely anemic. Patient does have severe aortic stenosis is also being evaluated fo TAVAR.. Patient was found to be both combined iron deficiency and B12 deficiency. Admitted in July with a severe anemia patient did have an endoscopy and colonoscopy is done colonoscopy revealed only diverticulosis internal hemorrhoids and the redundant colon. However upper GI endoscopy revealed a large ulcerated polyp in the antrum prolapsing into the duodenum which was removed endoscopically. The pathology suggestive of hyperplastic polyps with intestinal metaplasia with focal area of dysplasia resected margins clear Severe aortic stenosis Multiple other comorbidities include a COPD status post CVA obstructive sleep apnea she is a disorder rECOMMENDATIONS 1. Follow up of the hemoglobin hematocrit 2. Supplement B12 and iron 3. Patient has severe aortic stenosis , most severely symptomatic now would avoid the endoscopy procedures unless it is critical 4. Empiric therapy with the PPI 6. Would consider repeat endoscopy after cardiac optimization - Date & Time Date: 04/14/17 Time: 17:00
--- NOTE | 2017-04-16 15:00 | CP.PCM.PN ---
Subjective - Date & Time of Evaluation Date of Evaluation: 04/15/17 Time of Evaluation: 13:30 - Subjective Subjective: tolerating the diet. Complains of constipation patient is planned to be transferred to know what to but this hospital for evaluation forTAVAR Objective - Vital Signs/Intake and Output Vital Signs (last 24 hours): Temp Pulse Resp BP Pulse Ox 98.1 F 87 20 107/66 96 04/15/17 16:33 04/15/17 18:00 04/15/17 16:33 04/15/17 17:25 04/15/17 06:00 Intake and Output: 04/15/17 04/16/17 18:59 06:59 Output Total 0 Balance 0 - Medications Medications: Current Medications Albuterol/Ipratropium (Duoneb 3 Mg/0.5 Mg (3 Ml) Ud) 3 ml IH [id number] [facility] Last Admin: 04/15/17 19:22 Dose: 3 ml Artificial Tears (Artificial Tears) 0 ml OU QID BO Last Admin: 04/15/17 21:00 Dose: 1 drop Atorvastatin Calcium (Lipitor) 10 mg PO DIN [facility] Last Admin: 04/15/17 17:24 Dose: 10 mg Calcium Carbonate (Caltrate) 600 mg PO DAILY [facility] Last Admin: 04/15/17 10:02 Dose: 600 mg Cyanocobalamin (Vitamin B12 1000 Mcg/Ml Inj) 1,000 mcg SC DAILY BO Stop: 04/18/17 10:00 Last Admin: 04/15/17 10:00 Dose: 1,000 mcg Furosemide (Lasix) 40 mg PO BID BO Last Admin: 04/15/17 17:25 Dose: 40 mg Gabapentin (Neurontin) 300 mg PO TID BO PRN Reason: Protocol Last Admin: 04/15/17 15:08 Dose: 300 mg Sodium Chloride (Sodium Chloride 0.9%) 1,000 mls @ 50 mls/hr IV .Q20H BO Last Admin: 04/15/17 17:46 Dose: 50 mls/hr Iron Sucrose 200 mg/ Sodium (Chloride) 110 mls @ 110 mls/hr IVPB DAILY BO Stop: 04/16/17 10:59 Last Admin: 04/15/17 10:04 Dose: 110 mls/hr Insulin Human Regular (Humulin R Low) 0 units SC ACHS BO PRN Reason: Protocol Last Admin: 04/15/17 21:05 Dose: Not Given Levothyroxine Sodium (Synthroid) 75 mcg PO DAILY [facility] Last Admin: 04/15/17 10:02 Dose: 75 mcg Lidocaine (Lidoderm) 1 ea TD DAILY BO Last Admin: 04/15/17 10:04 Dose: 1 ea Magnesium Hydroxide (Milk Of Magnesia) 30 ml PO HS PRN PRN Reason: Constipation Last Admin: 04/14/17 21:33 Dose: 30 ml Metoprolol Succinate (Toprol Xl) 25 mg PO DAILY BO Last Admin: 04/15/17 10:03 Dose: 25 mg Multivitamins (Thera Tab) 1 tab PO DAILY [facility] Last Admin: 04/15/17 10:02 Dose: 1 tab Pantoprazole Sodium (Protonix Ec Tab) 40 mg PO DAILY [facility] Last Admin: 04/15/17 10:02 Dose: 40 mg Polyethylene Glycol (Miralax) 17 gm PO DAILY [facility] Last Admin: 04/15/17 15:31 Dose: 17 gm Potassium Chloride (Klor-Con 10) 10 meq PO BRK BO Last Admin: 04/15/17 08:06 Dose: 10 meq Prednisone (Prednisone Tab) 10 mg PO DAILY [facility] Spironolactone (Aldactone) 25 mg PO BID [facility] Last Admin: 04/15/17 17:24 Dose: 25 mg Tramadol HCl (Ultram) 50 mg PO TID PRN PRN Reason: Pain, moderate (4-7) Last Admin: 04/15/17 21:00 Dose: 50 mg Trimethoprim/Sulfamethoxazole (Bactrim Ds Tab) 1 tab PO BID BO PRN Reason: Protocol Last Admin: 04/15/17 17:24 Dose: 1 tab Vitamin B Complex/Vit C/Folic Acid (Nephro-Jose) 1 tab PO DAILY BO Last Admin: 04/15/17 10:02 Dose: 1 tab Vitamin D (Vitamin D 400 Intl Units Tab) 400 intlu PO DAILY BO Last Admin: 04/15/17 10:04 Dose: 400 intlu - Labs Labs: 04/15/17 06:00 04/15/17 06:00 PT 11.3 Seconds (9.9-11.8) 04/11/17 12:00 INR 1.05 (0.93-1.08) 04/11/17 12:00 APTT 31.4 Seconds (23.7-30.8) H 04/11/17 12:00 - Constitutional Appears: No Acute Distress - Head Exam Head Exam: ATRAUMATIC, NORMOCEPHALIC - Eye Exam Eye Exam: EOMI, PERRL. absent: Scleral icterus - ENT Exam ENT Exam: Mucous Membranes Moist - Neck Exam Neck Exam: Full ROM. absent: Lymphadenopathy - Respiratory Exam Respiratory Exam: Clear to Ausculation Bilateral, NORMAL BREATHING PATTERN. absent: Rales, Rhonchi - Cardiovascular Exam Cardiovascular Exam: REGULAR RHYTHM, +S1, +S2. absent: JVD - GI/Abdominal Exam GI & Abdominal Exam: Normal Bowel Sounds. absent: Tenderness, Mass - Extremities Exam Extremities Exam: Normal Inspection. absent: Calf Tenderness - Neurological Exam Neurological Exam: Alert, Awake, Oriented x3 - Psychiatric Exam Psychiatric exam: Anxious, Normal Affect - Skin Skin Exam: Warm. absent: Intact Assessment and Plan - Assessment and Plan (Free Text) Assessment: 1. Severe anemia combined iron deficiency and B12 deficiency 2. Status post large antral polypectomy and the removal of this ulcerated large polyp measuring about 3 cm in January 3. Constipation chronic on MiraLAX when necessary basis. Last colonoscopy in September revealed only diverticulosis and hemorrhoids redundant colon 4. Severe aortic stenosis patient is planned to be transferred to a [facility] for evaluation for TAVAR. 5. Other comorbidities including obstructive sleep apnea COPD coronary artery disease she is a disorder, history of elevated Dilantin level improved pLAN 1. Continue iron and B12 supplements 2. Close follow-up of the hemoglobin hematocrit 3. Continue empiric PPI therapy 4. Symptomatic severe aortic stenosis would defer endoscopy evaluation at the present time patient may benefit from repeat endoscopy after further cardiac optimization We'll continue to closely follow-up her care and suggests further management based on the clinical course Thank you very much for allowing us to participate in the care of the patient
[2017-04-16 17:01] LABS: BLOOD UREA NITROGEN 14 mg/dL (7-21); CALCIUM 8.9 mg/dL (8.4-10.5); CARBON DIOXIDE 20 mmol/L (21-33); CHLORIDE 100 mmol/L (98-107); GFR AFRICAN-AMERICAN > 60; GLUCOSE,RANDOM 131 mg/dL (70-110); MAGNESIUM 2.2 mg/dL (1.7-2.2); POTASSIUM 4.4 mmol/L (3.6-5.0); SODIUM 133 mmol/L (132-148)
[2017-04-16 17:33] VITALS: RESP 20
[2017-04-16] MEDS: Magnesium Hydroxide Susp 30 ml UD PO PRN (21:40)
--- NOTE | 2017-04-16 22:29 | PN ---
PULMONARY PROGRESS NOTE DATE: 04/16/2017 REFERRING PHYSICIAN: Dr. Ibarra. SUBJECTIVE: She is lying in the bed, head at 45 degrees. Feels better. Decreased cough. Decreased shortness of breath. No nausea. No vomiting. No diarrhea. No leg back pain. No leg swelling. OBJECTIVE: GENERAL: In no acute distress. VITAL SIGNS: Temperature is 98, heart rate is 80, respiratory rate is 20, blood pressure 127/82, and pulse ox 93% on room air. HEENT: Moist mucous membranes. Crowded airway. Mallampati score is 4. NECK: Supple. No JVD. LUNGS: Fair airflow with a few rhonchi. HEART: Has a murmur. ABDOMEN: Soft and nontender. No organomegaly. EXTREMITIES: No edema. NEUROLOGIC: Awake, alert, and follows simple commands. MEDICATIONS: She is on Aldactone 25 mg twice a day, Artificial Tears q.i.d. to both eyes, Bactrim double strength one tablet q. 12 hours, calcium carbonate 600 mg daily, albuterol/Atrovent nebulizer q. 6 hours, insulin coverage, potassium 10 mEq daily, Lasix 40 mg twice a day, Lidoderm patch to affected areas, Lipitor 10 mg daily, milk of magnesia 30 mL at bedtime, MiraLax 17 gram p.o. daily, Nephro vitamins daily, Neurontin 300 mg three times a day, prednisone 10 mg daily, Protonix 40 mg daily, IV fluid with normal saline 50 mL per hour, Synthroid 75 mcg daily, multivitamins daily, Toprol XL 25 mg daily, Ultram 50 mg 3 times daily p.r.n. LABORATORY DATA: Reviewed and shows sodium 133, potassium 4.4, chloride 100, bicarbonate 20, BUN 14, creatinine 0.7, glucose 131, calcium 8.9, magnesium is 2.2. IMPRESSION AND PLAN: Frequent fall with syncopal episodes, severe aortic stenosis, valvular heart disease with heart failure; history of Dilantin toxicity, hypertension, cerebrovascular accident, seizure disorder, diabetes, anemia. Pulmonary point of view, doing okay. Continue bronchodilator, keep head at 45 degree, decrease prednisone to 5 mg daily, will be evaluated for possible transcatheter aortic valve replacement, needs gastrointestinal workup before transcatheter aortic valve replacement. Thank you and we will follow with you. Jaleesa Martin MD [facility] # [id number]
[2017-04-17] MEDS: Insulin Reg-LOW-Coverage SC SCH ×2 (00:16→08:33)
--- NOTE | 2017-04-17 02:08 | PN ---
DATE: 04/16/2017 LOCATION: The patient in room 262, bed 1. REASON FOR CONSULTATION: Multiple falls, history of seizure disorder, severe aortic stenosis. SUBJECTIVE: The patient is conscious, alert. No chest pain, no shortness of breath, no palpitation. Lying flat in bed. PHYSICAL EXAMINATION VITAL SIGNS: Blood pressure 106/68, respirations 20, pulse 88, temperature 98. HEENT: Head is normocephalic. Eyes, pupils normal. Conjunctivae slightly pale. NECK: JVP low. Carotid equal. Thorax, AP diameter normal. CARDIOVASCULAR: S1 and S2. Ejection systolic murmur grade 3/6. No rub. LUNGS: Clear. ABDOMEN: Soft. No tenderness. No organomegaly. Bowel sounds normal. EXTREMITIES: No clubbing, no cyanosis. LABORATORY DATA: WBC 9.2, hemoglobin 9.3, hematocrit 28.9, platelets 511. Sodium 135, potassium 3.8, BUN 15, creatinine 0.7, glucose 103, calcium 8.8, phosphorus 3.9, magnesium 2.2. DIAGNOSES: Multiple falls, seizure disorder, severe aortic stenosis, anemia, B12 deficiency, diabetes, old cerebrovascular accident, hypertension, obstructive sleep apnea, chronic obstructive pulmonary disease, hypothyroidism, gastroesophageal reflux disease, elevated Dilantin level consistent with Dilantin toxicity. PLAN: Today's labs are pending. We will repeat labs in the morning again. The patient is on furosemide 40 b.i.d., potassium 10 mEq daily, Venofer 200 mg IV. The patient is also getting vitamin B12 injections, Synthroid 75 mcg daily, Lipitor 10 daily. We will continue present medication. We will keep n.p.o. after midnight. The patient is supposed to be transferred to [facility] tomorrow morning for TAVR evaluation and catheterization. We will continue to follow with you. Jaleesa Beyer MD
[2017-04-17] MEDS: Albuterol-Ipratrop 3 mg / 0.5 (3 ml) UD IH SCH ×3 (02:42→13:18)
[2017-04-17] MEDS: Sodium Chloride 0.9% 1,000 ML IV SCH (05:26)
[2017-04-17 06:42] VITALS: BP 104/66; PULSE 83; TEMP 98.2; O2SAT 93
--- NOTE | 2017-04-17 07:10 | CON ---
DATE: 04/16/2017 SUBJECTIVE: This patient was seen and evaluated earlier, discussed with the nursing staff. The patient still complains of constipation. She has been on MiraLax and also milk of magnesia. No complaints of abdominal pain. Tolerating the diet. The patient is due to be transferred to [facility] in the a.m. for further evaluation of the TAVR. PHYSICAL EXAMINATION VITAL SIGNS: The patient's vital signs remain stable. HEENT: Atraumatic, anicteric. NECK: Supple. HEART: S1 and S2 heard. LUNGS: Bilateral air entry present. ABDOMEN: Soft. There is no tenderness. EXTREMITIES: No cyanosis. No clubbing or edema. NEUROLOGICAL: Alert and oriented. Moves all the extremities. LABORATORY DATA: Reviewed. IMPRESSION: This 71-year-old patient was admitted with chest pain, dizziness, and frequent falls. The patient has history of severe aortic stenosis refused for evaluation and for TAVR. Presently agreeable with plan to be transferred to [facility] tomorrow for evaluation. She was admitted with Tylenol toxicity, improved. The patient's increased Tylenol is improved. The patient was also found to be anemic. The patient was found to have both B12 deficiency and also iron deficiency. The patient had an EGD and colonoscopy. EGD done and the patient had a large gastric polypoid lesion measuring over 3 cm in the antrum prolapsing into the duodenum causing partial obstruction was removed in February. The pathology report of the polyp was ulcerated hyperplastic polyp with dysplasia. The resected margins were clear of dysplasia. The patient is now able to tolerate regular food. Before patient was able to take only pureed food because of the partial obstruction caused by the prolapsing gastric polyp into the duodenum. PLAN: The plan was to do a repeat endoscopy, but in view of this significant cardiac issues, we would await for her cardiac status to be optimized before considering the elective endoscopic evaluation. Meanwhile, we would recommend the patient to be on steroids. Meanwhile, we will continue to follow up the hemoglobin, hematocrit, supplement iron and also B12. Other comorbidities include COPD, coronary artery disease, obstructive sleep apnea. Continue with present management. Thank you very much for allowing us to participate in the care of the patient. Toby Tillman MD [facility] # [id number]
[2017-04-17 08:20] LABS: BASO # 0.04 K/mm3 (0.0-2.0); BASO % 0.4 % (0.0-3.0); EOS # 0.4 (0.0-0.7); EOS % 4.5 % (1.5-5.0); GRAN # 6.23 (1.4-6.5); GRAN % 65.6 % (50.0-68.0); HEMATOCRIT 28.1 % (36.0-48.0); LYMPH # 1.7 (1.2-3.4); LYMPH % 18.3 % (22.0-35.0); MEAN CORPUSCULAR HEMOGLOBIN 23.6 pg (25.0-35.0); MEAN CORPUSCULAR HGB CONC 32.4 g/dl (31.0-37.0); MONO # 1.1 (0.1-0.6); MONO % 11.2 % (1.0-6.0); RED CELL DISTRIBUTION WIDTH 17.3 % (11.5-14.5); WHITE BLOOD COUNT 9.5 10^3/ul (4.5-11.0)
[2017-04-17 08:31] LABS: INR 1.05 (0.93-1.08); PARTIAL THROMBOPLASTIN TIME 31.7 Seconds (23.7-30.8)
[2017-04-17 08:39] LABS: BLOOD UREA NITROGEN 12 mg/dL (7-21); CALCIUM 8.7 mg/dL (8.4-10.5); CARBON DIOXIDE 25 mmol/L (21-33); CHLORIDE 101 mmol/L (95-110); GFR AFRICAN-AMERICAN > 60; GLUCOSE,RANDOM 97 mg/dL (70-110); MAGNESIUM 2.3 mg/dL (1.7-2.2); POTASSIUM 4.1 mmol/L (3.6-5.0); SODIUM 134 mmol/L (132-148)
--- NOTE | 2017-04-17 09:42 | PN ---
DATE: 04/16/2017 SUBJECTIVE: Patient is examined at the bedside, having dinner, looking comfortable, tolerating food very well. No nausea, vomiting, diarrhea. Having constipation. Even she is on stool softner , seen by GI doctor, Ready to be transferred to [facility] tomorrow for TAVR. No swelling of the legs, no chest pain, no palpitation. PHYSICAL EXAMINATION VITAL SIGNS: Temperature 98.1, pulse 87, respiratory rate 20, blood pressure 107/66, pulse oximetry 97. HEENT: Head normocephalic, atraumatic. Eyes, PERRLA. Extraocular muscles intact. Conjunctivae clear. Nose patent. Mucous membranes are moist. NECK: Supple. No carotid bruit or thyromegaly. CHEST: Bilaterally symmetrical. HEART: S1 and S2 positive. LUNGS: Clear to auscultation. ABDOMEN: Soft. Bowel sounds positive. No organomegaly. EXTREMITIES: No edema. No cyanosis. NEUROLOGIC: The patient is awake and alert. Moving all 4 extremities. No focal deficits. MEDICATIONS: Artificial tears, Lipitor, Caltrate, B12, Lasix, insulin, Synthroid, milk of magnesia, metoprolol, Protonix, Miralax, Aldactone, tramadol, Bactrim, folic acid. LABORATORY DATA: White blood cell is 9.2, hemoglobin 9.3, hematocrit 28.9, platelets 511, sodium 155, potassium 3.8, BUN 15, creatinine 0.7. Glucose 103. ASSESSMENT AND PLAN: The patient is a 71-year-old with iron deficiency anemia, thrombocytosis, diabetes mellitus, history of large stomach polypectomy, removal of ulcerative large polyp measuring about 3 cm in January, was causing a bleeding and patient's hemoglobin was very low status post blood transfusion, constipation, patient is on Miralax. Severe aortic stenosis, going on [facility] for evaluation and for TAVR. Has also sleep apnea syndrome and chronic obstructive pulmonary disease, history of urinary tract infection, completed course of Bactrim; history of seizures, was taking Dilantin, has toxicity. We will continue present treatment, B12, iron. Discussed the Bactrim, GI and DVT prophylaxis, repeat labs. We will follow up. Mayra Ibarra MD [facility] # [id number] MTDD
--- NOTE | 2017-04-17 10:27 | CP.PCM.PN ---
Subjective - Date & Time of Evaluation Date of Evaluation: 04/17/17 Time of Evaluation: 09:50 - Subjective Subjective: S&E at bedside, no acute overnight events, NPO awaiting transfer to [facility]. No BM yesterday or this am. No c.o N/V , abdominal pain,SOB or chest pain. Refuse am labs Objective - Vital Signs/Intake and Output Vital Signs (last 24 hours): Temp Pulse Resp BP Pulse Ox 98.2 F 83 20 104/66 93 L 04/17/17 06:00 04/17/17 06:00 04/17/17 06:00 04/17/17 06:00 04/17/17 06:00 Intake and Output: 04/17/17 04/17/17 06:59 18:59 Intake Total 360 Balance 360 - Medications Medications: Current Medications Albuterol/Ipratropium (Duoneb 3 Mg/0.5 Mg (3 Ml) Ud) 3 ml IH [id number] [facility] Last Admin: 04/17/17 08:08 Dose: 3 ml Artificial Tears (Artificial Tears) 0 ml OU QID [facility] Last Admin: 04/16/17 21:41 Dose: 1 drop Atorvastatin Calcium (Lipitor) 10 mg PO DIN [facility] Last Admin: 04/16/17 18:00 Dose: 10 mg Calcium Carbonate (Caltrate) 600 mg PO DAILY [facility] Last Admin: 04/16/17 10:14 Dose: 600 mg Cyanocobalamin (Vitamin B12 1000 Mcg/Ml Inj) 1,000 mcg SC DAILY BO Stop: 04/18/17 10:00 Last Admin: 04/16/17 10:15 Dose: 1,000 mcg Furosemide (Lasix) 40 mg PO BID [facility] Last Admin: 04/16/17 17:58 Dose: 40 mg Gabapentin (Neurontin) 300 mg PO TID BO PRN Reason: Protocol Last Admin: 04/16/17 17:59 Dose: 300 mg Sodium Chloride (Sodium Chloride 0.9%) 1,000 mls @ 50 mls/hr IV .Q20H [facility] Last Admin: 04/17/17 05:26 Dose: 50 mls/hr Insulin Human Regular (Humulin R Low) 0 units SC ACHS BO PRN Reason: Protocol Last Admin: 04/17/17 08:33 Dose: Not Given Levothyroxine Sodium (Synthroid) 75 mcg PO DAILY [facility] Last Admin: 04/16/17 10:14 Dose: 75 mcg Lidocaine (Lidoderm) 1 ea TD DAILY BO Last Admin: 04/16/17 10:13 Dose: 1 ea Magnesium Hydroxide (Milk Of Magnesia) 30 ml PO HS PRN PRN Reason: Constipation Last Admin: 04/16/17 21:40 Dose: 30 ml Metoprolol Succinate (Toprol Xl) 25 mg PO DAILY [facility] Last Admin: 04/16/17 10:14 Dose: 25 mg Multivitamins (Thera Tab) 1 tab PO DAILY BO Last Admin: 04/16/17 10:14 Dose: 1 tab Pantoprazole Sodium (Protonix Ec Tab) 40 mg PO DAILY [facility] Last Admin: 04/16/17 10:14 Dose: 40 mg Polyethylene Glycol (Miralax) 17 gm PO DAILY BO Last Admin: 04/16/17 10:13 Dose: 17 gm Potassium Chloride (Klor-Con 10) 10 meq PO BRK BO Last Admin: 04/16/17 08:43 Dose: 10 meq Prednisone (Prednisone Tab) 5 mg PO DAILY [facility] Spironolactone (Aldactone) 25 mg PO BID [facility] Last Admin: 04/16/17 17:59 Dose: 25 mg Tramadol HCl (Ultram) 50 mg PO TID PRN PRN Reason: Pain, moderate (4-7) Last Admin: 04/16/17 21:40 Dose: 50 mg Trimethoprim/Sulfamethoxazole (Bactrim Ds Tab) 1 tab PO Q12 BO PRN Reason: Protocol Last Admin: 04/16/17 21:47 Dose: 1 tab Vitamin B Complex/Vit C/Folic Acid (Nephro-Jose) 1 tab PO DAILY BO Last Admin: 04/16/17 10:13 Dose: 1 tab Vitamin D (Vitamin D 400 Intl Units Tab) 400 intlu PO DAILY [facility] Last Admin: 04/16/17 10:15 Dose: 400 intlu - Labs Labs: 04/17/17 08:00 04/17/17 08:00 PT 11.3 Seconds (9.9-11.8) 04/17/17 08:00 INR 1.05 (0.93-1.08) 04/17/17 08:00 APTT 31.7 Seconds (23.7-30.8) H 04/17/17 08:00 - Constitutional Appears: No Acute Distress - Head Exam Head Exam: NORMOCEPHALIC - Eye Exam Eye Exam: Normal appearance. absent: Scleral icterus - ENT Exam ENT Exam: Mucous Membranes Moist - Neck Exam Neck Exam: Normal Inspection - Respiratory Exam Respiratory Exam: NORMAL BREATHING PATTERN. absent: Respiratory Distress - Cardiovascular Exam Cardiovascular Exam: +S1, +S2 - GI/Abdominal Exam GI & Abdominal Exam: Soft, Normal Bowel Sounds. absent: Guarding, Tenderness, Rebound - Extremities Exam Extremities Exam: Normal Capillary Refill. absent: Calf Tenderness - Neurological Exam Neurological Exam: Alert, Awake, Oriented x3 Assessment and Plan - Assessment and Plan (Free Text) Assessment: Assessment: Severe anemia combined iron deficiency and B12 deficiency Status post large antral polypectomy and the removal of this ulcerated large polyp measuring about 3 cm in January Constipation chronic on MiraLAX when necessary basis. Last colonoscopy in September revealed only diverticulosis and hemorrhoids redundant colon Severe aortic stenosis patient is planned to be transferred to a [facility] for evaluation for TAVAR. Obstructive sleep apnea COPD coronary artery disease history of elevated Dilantin level improved PLAN Continue iron and B12 supplements follow-up of the hemoglobin hematocrit Continue empiric PPI therapy Miralax Symptomatic severe aortic stenosis would defer endoscopy evaluation at the present time patient may benefit from repeat endoscopy after further cardiac optimization await transfer to [facility] NPO spoke to nursing staff. Seen and discussed w/ Dr. Tillman
[2017-04-17] MEDS: Aritificial Tears (15ml) OU SCH (11:07)
[2017-04-17] MEDS: Lidocaine 5% Patch TD SCH (11:07)
[2017-04-17] MEDS: Potassium Chloride 10 mEq ER Tab PO SCH (11:07)
[2017-04-17] MEDS: Tmp-Smz 800 mg-160 mg DS Tab PO SCH (11:07)
--- NOTE | 2017-04-17 11:07 | PQF GENQUE ---
This form is a permanent part of the medical record Dr. Ibarra, Your response to previous query for cause of weakness and falls stated to address query to neurology. However, neuro consult does not appear to be ordered or done. Clarification of your documentation is requested to better reflect the severity of illness and intensity of treatment of your patient. Indicators present [place] TOXT [] Specify: [] [] Specify: [] [] Specify: [] [] Specify: [] Location in the medical record that reflects the above clinical findings: [] Treatment Provided: [] PHYSICIAN'S RESPONSE Based on your medical judgment of the clinical indicators outlined above please clarify the following: [] Practitioner response [] If unable to determine, please check the box, sign and date. Present On Admission (POA) Indicator: [] Present at the time of admission [] Not present at the time of admission [] Clinically Undetermined In responding to this query, please exercise your independent professional judgment. The fact that a question is asked does not imply that any particular answer is desired or expected. Thank you for your clarification on this documentation. If you have any questions please call:[ ] * Thank you, [ ]Nahed Adler [facility] #[id number] mural painter ROSEMARIE
[2017-04-17] MEDS: POLYETHYLENE GLYCOL 3350 17 GM/Dose PACKET PO SCH (11:08)
--- NOTE | 2017-04-17 17:55 | PN ---
DATE: 04/17/2017 LOCATION: The patient in room 262, bed 1. REASON FOR CONSULTATION: Followup multiple falls, history of seizure disorder, severe aortic stenosis. SUBJECTIVE: The patient is lying flat in bed without chest pain, short of breath or palpitation. PHYSICAL EXAMINATION: VITAL SIGNS: Blood pressure 104/66, respirations 20, pulse 83, temperature 98.2. HEENT: Head is normocephalic. Eyes: Pupils are normal. Conjunctivae slightly pale. NECK: JVP low. Carotids are equal. Thorax, AP diameter normal. LUNGS: Clear. CARDIOVASCULAR: S1 and S2. Ejection systolic murmur grade 3/6. No rub. ABDOMEN: Soft. No tenderness. No organomegaly. EXTREMITIES: No clubbing, no cyanosis. LABORATORY DATA: WBC 9.5, hemoglobin 9.1, hematocrit 28.1, platelet 455. Sodium 134, potassium 4.1, BUN 12, creatinine 0.7, magnesium 2.3. DIAGNOSES: Multiple falls, seizure disorder, severe aortic stenosis, anemia, B12 deficiency, diabetes, cerebrovascular accident, hypertension, obstructive sleep apnea, chronic obstructive pulmonary disease, hypothyroidism, gastroesophageal reflux disease, elevated Dilantin level consistent with Dilantin toxicity. PLAN: Dilantin level is coming down slowly. Today's level is 24, normal is between 10 and 20, on admission it was 39. In the meantime, the patient is going to be transferred to [facility] today for workup for possible TAVR because of severe aortic stenosis. So, we are making arrangements for her to be transferred 2 days for that. In the meantime, we will continue the present therapy and we will follow. Jaleesa Beyer MD
--- NOTE | 2017-04-18 21:11 | DS ---
CHIEF COMPLAINT: Fall and altered mental status. HISTORY OF PRESENT ILLNESS: Ms. Mabel Jacobsen is a 71-year-old female with history of diabetes mellitus, hypertension, hypercholesterolemia, COPD, congestive heart failure, seizures, severe aortic stenosis, who came to the emergency room complaining of bilateral hip pain and left lower extremity pain after multiple falls at long term. The patient was feeling dizzy. We did labs and came to know the patient had Dilantin toxicity. We admitted the patient and repeated Dilantin levels and finally dropped back to almost normal and the patient's dizziness got better. PAST MEDICAL HISTORY: As above, severe aortic stenosis, coronary artery disease, congestive heart failure, hypertension, sleep apnea syndrome, history of CVA, dizziness, and TIA. PAST SURGICAL HISTORY: Herniorrhaphy. FAMILY HISTORY: Father and mother noncontributory. HABITS: No smoking, no drug, no ethanol. ALLERGIES: THE PATIENT IS ALLERGIC TO MORPHINE, ORANGE JUICE, SHELLFISH, AND TOMATO ALLERGY. HOME MEDICATIONS: Reviewed by me. REVIEW OF SYSTEMS: The patient seen and examined on the bedside, looking comfortable. No nausea, vomiting, or diarrhea. No hematuria or hematochezia. No swelling of the legs. No chest pain, no palpitations. No headache or dizziness. The patient is almost at the baseline. The patient is n.p.o. and waiting for transferred to [facility]. No bowel movements yesterday and has no nausea or vomiting. No abdominal pain, shortness of breath, chest pain after today's a.m. labs. PHYSICAL EXAMINATION: VITAL SIGNS: Temperature 98.2, pulse 83, respirations 20, blood pressure 104/56, and pulse oximetry 93%. HEENT: Head: Normocephalic and atraumatic. Eyes: PERRLA, extraocular muscles intact, conjunctivae are clear. Nose is patent. Mucous membranes moist. NECK: Supple. No carotid bruit. No JVD or thyromegaly. CHEST: Bilaterally symmetrical. HEART: S1 and S2 positive. LUNGS: Clear to auscultation. ABDOMEN: Soft. Bowel sounds present. No organomegaly. EXTREMITIES: No edema, no cyanosis. NEUROLOGIC: The patient is awake and alert. Moving all 4 extremities. No focal deficits. MEDICATIONS: Artificial tears, Lipitor, Caltrate, vitamins, Lasix, Neurontin, insulin, Synthroid, Lidoderm, and hydroxycodone. LABORATORY DATA: White blood cell 9.5, hemoglobin noted , hematocrit 28.0 and platelets 455. Sodium 134, potassium 4.1, BUN 12, creatinine 0.7, and glucose 97. ASSESSMENT AND PLAN: Ms. Mabel Jacobsen is a 71-year-old lady with anemia, hyperglycemia, history of seizures, hypertension, hypercholesterolemia, aortic stenosis, status post large antral polypectomy and removal of this ulcerative large polyp measuring about 3 cm in January, chronic obstructive pulmonary disease, coronary artery disease, and history of elevated Dilantin level, improving. Now, we will transfer the patient to [facility] for continuity of care. The patient will get PPI . We will follow up. Mayra Ibarra MD MTDD
== END 2017-04-17 13:24 | disposition short-term general hospital (02) | DRG 149 ==
LOC: ED 10:57 → ERH 13:46 → 2RNO 16:44
PROVIDERS: ADMIT Internal Medicine; ATTEND Internal Medicine
PROC: 3E0F7GC Introduction of Other Therapeutic Substance into Respiratory Tract, Via Natural or Artificial Opening (ICD-10-PCS; principal; 2017-04-12)
DX: R42 Dizziness and giddiness (principal); T42.0X5A Adverse effect of hydantoin derivatives, initial encounter; E10.65 Type 1 diabetes mellitus with hyperglycemia; E10.42 Type 1 diabetes mellitus with diabetic polyneuropathy; I50.9 Heart failure, unspecified; I11.0 Hypertensive heart disease with heart failure; D51.9 Vitamin B12 deficiency anemia, unspecified; D50.9 Iron deficiency anemia, unspecified; N39.0 Urinary tract infection, site not specified; J44.9 Chronic obstructive pulmonary disease, unspecified; G40.909 Epilepsy, unspecified, not intractable, without status epilepticus; R29.6 Repeated falls; K21.9 Gastro-esophageal reflux disease without esophagitis; I35.0 Nonrheumatic aortic (valve) stenosis; E87.6 Hypokalemia; G47.33 Obstructive sleep apnea (adult) (pediatric); E03.9 Hypothyroidism, unspecified; K59.00 Constipation, unspecified; M25.562 Pain in left knee; M54.5 Low back pain; K64.8 Other hemorrhoids; K57.90 Diverticulosis of intestine, part unspecified, without perforation or abscess without bleeding; I25.10 Atherosclerotic heart disease of native coronary artery without angina pectoris; E78.00 Pure hypercholesterolemia, unspecified; M25.551 Pain in right hip; M25.552 Pain in left hip; R07.9 Chest pain, unspecified; D75.89 Other specified diseases of blood and blood-forming organs; H40.9 Unspecified glaucoma; Z86.73 Personal history of transient ischemic attack (TIA), and cerebral infarction without residual deficits; Z91.81 History of falling

== ENCOUNTER 2017-05-23 12:00 | Inpatient (IN) | payer MEDICARE, MEDICAID ==
--- NOTE | 2017-05-23 12:54 | ED PDOC ---
Arrival/HPI - General Chief Complaint: Trauma Time Seen by Provider: 05/23/17 12:45 Historian: Patient - History of Present Illness Narrative History of Present Illness (Text): 05/23/17 12:50 A 71 year old female, whose past medical history includes seizure disorder, sent from [facility] for evaluation after fall. Patient reports dizziness and double vision since this morning causing her to fall off her wheel chair. She notes injuring her left ankle and left side of her head. Patient denies any other injuries, loss of consciousness, fever, chills, nausea , vomiting, abdominal pain, chest pain, shortness of breath or any other complaints. Time/Duration: Other (this morning) Symptom Course: Unchanged Quality: Other Context: Home (retirement) Past Medical History - Provider Review Nursing Documentation Reviewed: Yes - Infectious Disease Hx of Infectious Diseases: None - Reproductive Menopause: Yes - Cardiac Hx Cardiac Disorders: Yes (SEVERE AORTIC STENOSIS) Hx Circulatory Problems: Yes Hx Congestive Heart Failure: Yes Hx Hypertension: Yes Hx Pacemaker: No - Pulmonary Hx Respiratory Disorders: Yes Hx Chronic Obstructive Pulmonary Disease (COPD): Yes Hx Sleep Apnea: Yes - Neurological Hx Neurological Disorder: Yes HX Cerebrovascular Accident: Yes (RIGHT SIDED WEAKNESS) Hx Dizziness: Yes (SYNCOPE) Hx Seizures: Yes Hx Transient Ischemic Attacks (TIA): Yes Other/Comment: NEUROPATHY - HEENT Hx HEENT Disorder: Yes (m) Hx Glaucoma: Yes - Renal Hx Renal Disorder: No - Endocrine/Metabolic Hx Endocrine Disorders: Yes Hx Diabetes Mellitus Type 1: Yes Hx Hypothyroidism: Yes - Hematological/Oncological Hx Blood Disorders: Yes Hx Anemia: Yes (H/O BLOOD TRANSFUSION) - Integumentary Hx Dermatological Disorder: Yes Other/Comment: multiple bruises to left abd, left hip, left shoulder and chest, older bruises to b/l lower extremities from knees down,left posterior arm skin discoloration with dry skin, right arm multiple bruising, slight redness to buttocks - Musculoskeletal/Rheumatological Hx Musculoskeletal Disorders: Yes Hx Arthritis: Yes Hx Back Pain: Yes Hx Falls: Yes (multiple frequent) Hx Fractures: Yes (CATALINA FX ANKLE) - Gastrointestinal Hx Gastrointestinal Disorders: Yes (GI BLEED,GASTRIC LARGE POLYP REMOVED.01-24-17) Hx Gastroesophageal Reflux: Yes HX Swallowing Problems: Yes (PUREED DIET) Other/Comment: missing teeth - Genitourinary/Gynecological Hx Genitourinary Disorders: Yes Hx Incontinence: Yes - Psychiatric Hx Psychophysiologic Disorder: No Hx Emotional Abuse: No Hx Physical Abuse: No Hx Substance Use: No - Surgical History Hx Appendectomy: Yes Other/Comment: herniorrhaphy - Anesthesia Hx Anesthesia Reactions: No Hx Malignant Hyperthermia: No - Suicidal Assessment Feels Threatened In Home Enviroment: No Family/Social History - Physician Review Nursing Documentation Reviewed: Yes Family/Social History: No Known Family HX Smoking Status: Never Smoked Hx Alcohol Use: No Hx Substance Use: No Allergies/Home Meds Allergies/Adverse Reactions: Allergies morphine Allergy (Verified 05/23/17 12:07) VOMITING orange Allergy (Verified 05/23/17 12:07) RASH Penicillins Allergy (Verified 05/23/17 12:07) RASH shellfish derived Allergy (Verified 05/23/17 12:07) ANAPHYLAXIS tomato Allergy (Verified 05/23/17 12:07) RASH Home Medications: Home Meds Medication Instructions Recorded Confirmed Acetaminophen [Tylenol 325mg tab] 650 mg PO PRN PRN 05/23/17 05/23/17 Aspirin [Ecotrin] 81 mg PO DAILY 05/23/17 05/23/17 Atorvastatin [Lipitor] 10 mg PO DIN 05/23/17 05/23/17 Clopidogrel [Plavix] 75 mg PO DAILY 05/23/17 05/23/17 Docusate Sodium [Colace] 100 mg PO HS 05/23/17 05/23/17 Furosemide [Lasix] 40 mg PO BID 05/23/17 05/23/17 Gabapentin [Neurontin] 300 mg PO TID 05/23/17 05/23/17 Levothyroxine [Synthroid] 75 mcg PO DAILY 05/23/17 05/23/17 Lidocaine 5% [Lidoderm] 1 patch TP DAILY 05/23/17 05/23/17 Magnesium Hydroxide [Milk Of 30 mg PO HS PRN 05/23/17 05/23/17 Magnesia] Metoprolol Succinate XL [Toprol XL] 25 mg PO BRK 05/23/17 05/23/17 Pantoprazole [Protonix] 40 mg PO DAILY 05/23/17 05/23/17 Phenytoin Sodium 200 mg PO BID 05/23/17 05/23/17 Propylene Glycol/Peg 400 [Systane 1 drop OU DAILY 05/23/17 05/23/17 Ultra 0.4%-0.3% 10 ml] Spironolactone [Aldactone] 25 mg PO BID 05/23/17 05/23/17 traMADol [Ultram] 50 mg PO PRN PRN 05/23/17 05/23/17 Review of Systems - Physician Review All systems were reviewed & negative as marked: Yes - Review of Systems Systems not reviewed;Unavailable: Other (dementia) Constitutional: absent: Fevers, Night Sweats Eyes: Vision Changes (double vision) Respiratory: absent: SOB Cardiovascular: absent: Chest Pain Gastrointestinal: absent: Abdominal Pain, Nausea, Vomiting Musculoskeletal: Other (Left ankle pain, Left sided head trauma) Skin: Normal Neurological: Dizziness, Disequilibrium Physical Exam Vital Signs Reviewed: Yes Vital Signs Temp Pulse Resp BP Pulse Ox 05/23/17 18:41 71 17 118/57 L 100 05/23/17 15:35 60 18 131/67 100 05/23/17 12:15 97.7 F 62 18 122/77 100 Temperature: Afebrile Blood Pressure: Normal Pulse: Regular Respiratory Rate: Normal Appearance: Positive for: Well-Appearing, Non-Toxic, Comfortable Pain Distress: None Mental Status: Positive for: Alert and Oriented X 3 (Mental status normal to baseline), other (off balance ) - Systems Exam Head: Present: Contusion (Left restorationist contusion) Pupils: Present: PERRL Extroacular Muscles: Present: EOMI Conjunctiva: Present: Normal Mouth: Present: Moist Mucous Membranes Neck: Present: Normal Range of Motion Respiratory/Chest: Present: Clear to Auscultation, Good Air Exchange. No: Respiratory Distress, Accessory Muscle Use Cardiovascular: Present: Regular Rate and Rhythm, Normal S1, S2. No: Murmurs Abdomen: Present: Normal Bowel Sounds. No: Tenderness, Distention, Peritoneal Signs Back: Present: Normal Inspection Upper Extremity: Present: Normal Inspection. No: Cyanosis, Edema Lower Extremity: Present: NORMAL PULSES, Normal ROM, Tenderness (Left ankle tenderness), Swelling, Neurovascularly Intact. No: Edema, CALF TENDERNESS, Erythema, Deformity, Temperature Abnormalties Neurological: Present: GCS=15, CN II-XII Intact, Speech Normal Skin: Present: Warm, Dry, Normal Color. No: Rashes Psychiatric: Present: Alert, Oriented x 3, Normal Insight, Normal Concentration , Other (Mental status normal to baseline) Medical Decision Making ED Course and Treatment: 05/23/17 12:49 Impression: A 71 year old female with dizziness and double vision. Patient complains of left sided head trauma and left ankle pain after fall today. Plan: -- Head CT -- Left ankle xray -- EKG -- Tylenol -- Reassess and disposition Progress Notes: Report Date : 05/23/2017 13:54:25 PROCEDURE: CT HEAD WITHOUT CONTRAST. Dictator : Suzi Kaminski MD IMPRESSION: No acute intracranial abnormality. Moderate chronic microangiopathic changes and moderate age-related global parenchymal volume loss. Report Date : 05/23/2017 14:12:20 PROCEDURE: Left Ankle Radiographs. Dictator : Ye Finnegan MD IMPRESSION: Negative study 05/23/17 17:43 no significant traumatic injuries. as per Dr. Ibarra she states that the patient was complaining of dizziness while in the retirement and having new movement disorder appearing ataxic vertiginous. She then felt had an unwitnessed fall to the floor Dr. Ibarra is concerned about his new onset dizziness may represent a TIA and would like her admitted for observation 05/23/17 19:14 - RAD Interpretation Radiology Orders: 05/23/17 12:49 HEAD W/O CONTRAST [CT] Stat 05/23/17 12:50 ANKLE LEFT 3 VIEWS ROUTINE [RAD] Stat - Medication Orders Current Medication Orders: Discontinued Medications Acetaminophen (Tylenol 325mg Tab) 650 mg PO STAT STA Stop: 05/23/17 12:51 Last Admin: 05/23/17 12:57 Dose: 650 mg [facility] Pain/Vitals Document 05/23/17 12:57 OCS (Rec: 05/23/17 12:58 OCS [facility] [place] [facility] [id number][place] Pain Reassessment Is This A Pain ReAssessment? Yes Sleep Is patient sleeping during reassessment? No Presence of Pain Presence of Pain Yes Pain Scale Used Pain Scale Used Numeric Location Pain Location Body Site Ankle Description Constant Re-Assess: [facility] Pain/Vitals Document 05/23/17 13:57 OCS (Rec: 05/23/17 19:44 OCS [facility] [id number][place] Pain Reassessment Is This A Pain ReAssessment? Yes Sleep Is patient sleeping during reassessment? No Presence of Pain Presence of Pain Yes Pain Scale Used Pain Scale Used Numeric Aspirin (Aspirin Chewable) 324 mg PO STAT STA Stop: 05/23/17 19:16 Last Admin: 05/23/17 19:46 Dose: 324 mg - Procedure PROCEDURE NOTE (Text): Left internal jugular central line performed by me with a 20 20 gauge angiocath for IV access. - Scribe Statement The provider has reviewed the documentation as recorded by the Scribe Vee Gan Provider Scribe Attestation: All medical record entries made by the Scribe were at my direction and personally dictated by me. I have reviewed the chart and agree that the record accurately reflects my personal performance of the history, physical exam, medical decision making, and the department course for this patient. I have also personally directed, reviewed, and agree with the discharge instructions and disposition. Disposition/Present on Arrival - Present on Arrival Any Indicators Present on Arrival: No History of DVT/PE: No History of Uncontrolled Diabetes: No Urinary Catheter: No History of Decub. Ulcer: No History Surgical Site Infection Following: None - Disposition Have Diagnosis and Disposition been Completed?: Yes Diagnosis: Contusion of head, Ankle sprain, Falls, TIA (transient ischemic attack) Disposition: HOSPITALIZED Disposition Time: 17:44 Patient Plan: Admission, Discharge, Telemetry Patient Problems: Current Active Problems Problem Status Onset Ankle sprain Acute Contusion of head Acute Falls Acute TIA (transient ischemic attack) Acute Condition: IMPROVED
--- NOTE | 2017-05-23 13:56 | CT ---
PROCEDURE: CT HEAD WITHOUT CONTRAST. HISTORY: Fall, head trauma elderly COMPARISON: 04/11/2017. TECHNIQUE: Axial computed tomography images were obtained through the head/brain without intravenous contrast. Radiation dose: Total exam DLP = 725.71 mGy-cm. This CT exam was performed using one or more of the following dose reduction techniques: Automated exposure control, adjustment of the mA and/or kV according to patient size, and/or use of iterative reconstruction technique. FINDINGS: HEMORRHAGE: No intracranial hemorrhage. BRAIN: There are moderate chronic microangiopathic changes. There is no mass, mass effect or abnormal extra-axial fluid collection. VENTRICLES: There is moderate age-related global parenchymal volume loss and proportionate enlargement of the ventricles and cortical sulci. CALVARIUM: There is no calvarial fracture or extracranial soft tissue swelling. There is hyperostosis frontalis interna. PARANASAL SINUSES: Predominantly clear MASTOID AIR CELLS: Predominantly clear. OTHER FINDINGS: None. IMPRESSION: No acute intracranial abnormality. Moderate chronic microangiopathic changes and moderate age-related global parenchymal volume loss.
--- NOTE | 2017-05-23 14:14 | RAD ---
PROCEDURE: Left Ankle Radiographs. HISTORY: ankle pain fall COMPARISON: None FINDINGS: BONES: Normal. No fracture. JOINTS: Normal. No osteoarthritis. Ankle mortise maintained. Talar dome intact SOFT TISSUES: Normal. OTHER FINDINGS: None. IMPRESSION: Negative study
[2017-05-23 21:10] LABS: BASO # 0.02 K/mm3 (0.0-2.0); BASO % 0.2 % (0.0-3.0); EOS # 0.2 (0.0-0.7); EOS % 1.9 % (1.5-5.0); GRAN # 6.32 (1.4-6.5); GRAN % 78.7 % (50.0-68.0); LYMPH # 0.8 (1.2-3.4); LYMPH % 9.5 % (22.0-35.0); MEAN CELL VOLUME 78.8 fl (80.0-105.0); MEAN CORPUSCULAR HEMOGLOBIN 26.3 pg (25.0-35.0); MEAN CORPUSCULAR HGB CONC 33.3 g/dl (31.0-37.0); MEAN PLATELET VOLUME 9.3 fl (7.0-11.0); MONO # 0.8 (0.1-0.6); MONO % 9.7 % (1.0-6.0); RED CELL DISTRIBUTION WIDTH 20.7 % (11.5-14.5)
[2017-05-23 21:12] LABS: BLOOD UREA NITROGEN 13 mg/dL (7-21); CALCIUM 8.6 mg/dL (8.4-10.5); CARBON DIOXIDE 26 mmol/L (21-33); CHLORIDE 101 mmol/L (98-107); GFR AFRICAN-AMERICAN > 60; GLUCOSE,RANDOM 173 mg/dL (70-110); POTASSIUM 3.6 mmol/L (3.6-5.0); SODIUM 136 mmol/L (132-148)
[2017-05-23] MEDS ORDERED: Magnesium Hydroxide Susp 30 ml UD PO PRN (22:30)
[2017-05-24 00:13] VITALS: BMI 29.0
[2017-05-24] MEDS: Aritificial Tears (15ml) OU SCH ×2 (00:33→09:51)
--- NOTE | 2017-05-24 00:52 | CARD ---
APPROVED REPORT EKG Measurement Heart [id number] <Conclusion> Sinus rhythm with 1st degree AV block Left bundle branch block Abnormal ECG
[2017-05-24] MEDS: Albuterol-Ipratrop 3 mg / 0.5 (3 ml) UD IH SCH ×4 (01:27→19:32)
--- NOTE | 2017-05-24 05:18 | CON ---
DATE: 05/23/2017 PULMONARY CONSULTATION REFERRING PHYSICIAN: Mayra Ibarra MD REASON FOR CONSULT: Recurrent dizzy spell and near syncope, may have sleep apnea syndrome, history of cardiomyopathy. HISTORY OF PRESENT ILLNESS: This is a 71 years old female, known to me from previous admission with past medical history significant for seizure disorder; history of severe aortic stenosis, ended up with TAVR; also have a stroke in the past, diabetes, hypertension, chronic lung disease, suspected sleep apnea syndrome. Also with a history of polypoid lesion in the stomach which was benign. She is lying in the bed. No headache and no rhinitis. According to her, she sees everything. No hemoptysis or hematemesis. No hematuria. No diarrhea reported. PAST MEDICAL HISTORY: As per history of present illness. ALLERGIES: TO SULFA. FAMILY HISTORY: No significant cardiopulmonary disease reported. SOCIAL HISTORY: She is a rehab nursing tech. No history of smoking or alcohol use. MEDICATIONS: She has been on aspirin and Tylenol. HOME MEDICATIONS: Include tramadol, Aldactone, phenytoin, Protonix, metoprolol succinate, Synthroid, gabapentin, Lasix, Plavix, Lipitor, and aspirin. REVIEW OF SYSTEMS: Denied any headache at the present time, earlier today was busy seeing . No nausea. No vomiting. No diarrhea. No leg pain or leg swelling. PHYSICAL EXAMINATION: GENERAL: Lying in the bed, in no acute distress. VITAL SIGNS: Temperature is 98, heart rate is 62, respiratory rate is 20, blood pressure is 122/77, and pulse ox is 100% on room air. HEENT: Moist mucous membranes. Edentulous. NECK: Supple. No JVD. LUNGS: Has scattered rhonchi. HEART: S1 and S2. No murmur. ABDOMEN: Soft and nontender. No organomegaly. EXTREMITIES: No edema. NEUROLOGIC: Awake and alert. Follows simple commands. LABORATORY DATA: Shows hemoglobin of 11.0, hematocrit of 33.0, WBC of 8.0, and platelet is 405. Sodium of 136, potassium of 3.6, chloride of 101, bicarbonate of 26, BUN of 13, and creatinine of 0.6. Glucose of 173 and calcium of 8.6. Phenytoin level was 46. IMPRESSION AND PLAN: Dilantin toxicity with symptoms, seizure disorder, history of aortic stenosis, anemia, B12 deficiency, diabetes, history of cerebrovascular accident in the past, hypertension, may have obstructive sleep apnea syndrome, chronic lung disease, hypothyroid, and gastroesophageal reflux disease. We will hold Dilantin level and may need to decrease the maintenance dose, as this is recurrent admission for her. Fall precaution, bronchodilator, gastric prophylaxis, and replace thyroid hormone. Follow up Dilantin level in the morning. Case discussed with Dr. Ibarra. Thank you and we will follow with you. Jaleesa Martin MD
[2017-05-24] MEDS: Pantoprazole 40 mg EC Tab PO SCH (05:23)
[2017-05-24] MEDS: Levothyroxine 75 MCG TAB PO SCH (05:23)
[2017-05-24 06:34] LABS: MEAN CELL VOLUME 78.9 fl (80.0-105.0); MEAN CORPUSCULAR HEMOGLOBIN 25.9 pg (25.0-35.0); MEAN CORPUSCULAR HGB CONC 32.8 g/dl (31.0-37.0); MEAN PLATELET VOLUME 9.8 fl (7.0-11.0); RED CELL DISTRIBUTION WIDTH 20.8 % (11.5-14.5); WHITE BLOOD COUNT 5.3 10^3/ul (4.5-11.0)
[2017-05-24 06:38] LABS: ALB/GLOB RATIO 1.3 (1.1-1.8); ALKALINE PHOSPHATASE 137 U/L (38-126); ALT/SGPT 33 U/L (7-56); AST/SGOT 20 U/L (14-36); BILIRUBIN,DIRECT 0.4 mg/dL (0.0-0.4); BILIRUBIN,TOTAL 0.5 mg/dL (0.2-1.3); BLOOD UREA NITROGEN 14 mg/dL (7-21); CALCIUM 9.3 mg/dL (8.4-10.5); CARBON DIOXIDE 26 mmol/L (21-33); CHLORIDE 102 mmol/L (95-110); GFR AFRICAN-AMERICAN > 60; GLUCOSE,RANDOM 97 mg/dL (70-110); SODIUM 140 mmol/L (132-148); TOTAL PROTEIN 7.2 g/dL (5.8-8.3)
[2017-05-24 06:46] LABS: IRON 39 ug/dL (45-180)
--- NOTE | 2017-05-24 07:56 | HP ---
CHIEF COMPLAINT: Lightheadedness, dizziness, and fall. HISTORY OF PRESENT ILLNESS: Ms. Mabel Jacobsen is a 71-year-old female with past medical history of seizure disorder, diabetes mellitus, hypothyroidism, anemia, TAVR, resident of [facility] for evaluation who started lightheadedness, dizziness after that she has fall and feeling very weak. The patient reports dizziness and double vision since this morning, causing her to fall of her wheelchair. She noticed injuring her left ankle and left side of her head. The patient denies any other injurious. No loss of consciousness or palpation. No fevers. No chills. No nausea, vomiting, or diarrhea. No hematuria or hematochezia. No chest pain. No palpitation. No headache or dizziness. PAST MEDICAL HISTORY: Severe aortic stenosis, status post TAVR; congestive heart failure; hypertension; COPD; asthma; sleep apnea syndrome; history of CVA, right-sided weakness; history of syncopal attack, seizure, TIA; neuropathy, history of glaucoma; diabetes mellitus type 1; hypothyroidism; anemia; had diagnosis of back pain, fall; history of GI bleeding; large gastric ulcer; large polyp removed 6 x 17. The patient supposed to have pureed diet, missing teeth, urinary incontinence, history of appendectomy, herniorrhaphy. FAMILY HISTORY: Father and mother noncontributory. HABITS: Never smoked. No drug. No ethanol. ALLERGIES: THE PATIENT IS ALLERGIC WITH MORPHINE, ORANGE ALLERGY, PENICILLIN, SHELLFISH, AND TOMATOES. HOME MEDICATIONS: Tylenol, Ecotrin, Lipitor, Plavix, Colace, Lasix, Neurontin, Synthroid, Lidoderm, metoprolol, Protonix, phenytoin, we will do dilantin level, spironolactone, and tramadol. REVIEW OF SYSTEMS: The patient seen and examined on the bedside in the ER. Length of time discussion done. The patient has dementia. No fever. No night sweat. No history of double vision changes. History of shortness of breath. No chest pain. No abdominal pain. No nausea, vomiting, or diarrhea. Left ankle pain. Left-sided head injury. No dizziness and dysequilibrium. PHYSICAL EXAMINATION: VITAL SIGNS: Temperature 98.6, pulse 71, respiratory rate 16, blood pressure 118/57, and pulse oximetry 100%. HEENT: Head normocephalic and atraumatic. Eyes, PERRLA. Extraocular muscles intact. Conjunctivae clear. Nose patent. Mucous membranes moist. NECK: Supple. No carotid bruits. No JVD or thyromegaly. CHEST: Bilaterally symmetrical. HEART: S1 and S2 positive. LUNGS: Clear to auscultation. ABDOMEN: Soft. Bowel sounds present. No organomegaly. EXTREMITIES: No edema. No cyanosis. NEUROLOGIC: The patient is awake and alert. Moving all 4 extremities. No focal deficits. LABORATORY DATA: Sodium 136, potassium 3.6, BUN 13, creatinine 0.6, glucose 173. White blood cells 8.0, hemoglobin 11.0, hematocrit 33.4, platelets 405. ASSESSMENT AND PLAN: Ms. Mabel Jacobsen is a 71-year-old lady with anemia, hyperglycemia. Dilantin level is 46. CAT scan of the head done, no acute intracranial abnormality, moderate chronic microangiopathic changes and moderate age related global parenchymal volume loss. Ankle x-rays, negative study. The patient is admitted with transient ischemic attack, Dilantin toxicity. The patient has history of congestive heart failure, hypertension, history of transcatheter aortic valve replacement, chronic obstructive pulmonary disease, sleep apnea, right-sided weakness, syncope, transient ischemic attack, history of glaucoma, diabetes mellitus type 1, hypothyroidism, history of anemia getting transfusion from . Gastrointestinal and deep venous thrombosis prophylaxis. Discussion done with Dr. Martin. Repeat labs. We will follow. Mayra Ibarra MD MTDCristina
[2017-05-24] MEDS: Insulin Reg-LOW-Coverage SC SCH ×4 (08:17→22:26)
[2017-05-24] MEDS: Metoprolol Succinate 25 mg XL Tab PO SCH (08:18)
[2017-05-24] MEDS ORDERED: PHENYTOIN SODIUM 200 MG PO SCH (10:00)
--- NOTE | 2017-05-24 11:25 | CP.PCM.CON ---
<Kassy Do - Last Filed: 05/24/17 11:29> History of Present Illness - History of Present Illness History of Present Illness: Neurology Consult for Bri Tapia PGY2 Reason for consult: r/o TIA This is a 71Y F with PMH CHF, HTN, COPD, CVA, seizure disorder, TIA, DM, hypothyroidism, aortic stenosis s/p TAVR who came to ED for fall. Patient states she was getting something while in her wheelchair and missed the item and fell. She did not lose consciousness, have tongue biting, bowel/bladder incontinence, dizziness, vision changes, or headache. She reports that she did hit her head and L ankle. In ED, Head CT was negative for acute pathology and ankle XR was negative for fracture. Patient's Dilantin level was noted to be elevated. This am, patient is resting comfortably in bed. She denies CP, SOB, n/ v/d, numbness/tingling, headache, dizziness, weakness, fever or chills. PMH: CHF, HTN, COPD, CVA, seizure disorder, TIA, DM, hypothyroidism, aortic stenosis s/p TAVR, cognitive impairment PSH: TAVR, appendectomy, hernia repair Meds: As per MAR All: Morphine, penicillins, orange, tomato, shellfish SH: Lives at [facility]. Denies EtOH, drug or tobacco use Review of Systems - Review of Systems All systems: reviewed and no additional remarkable complaints except Review of Systems: + frequent falls Past Patient History - Infectious Disease Hx of Infectious Diseases: None - Past Social History Smoking Status: Never Smoked Alcohol: None Drugs: Denies Home Situation {Lives}: Skilled Nursing - CARDIAC Hx Cardiac Disorders: Yes Hx Congestive Heart Failure: Yes Hx Hypercholesterolemia: Yes Hx Hypertension: Yes - PULMONARY Hx Respiratory Disorders: Yes Hx Sleep Apnea: Yes - NEUROLOGICAL Hx Neurological Disorder: Yes HX Cerebrovascular Accident: Yes (w/ R. sided weakness) Hx Seizures: Yes Hx Transient Ischemic Attacks (TIA): Yes Other/Comment: neuopathy - HEENT Hx HEENT Problems: Yes Hx Glaucoma: Yes - RENAL Hx Chronic Kidney Disease: No - ENDOCRINE/METABOLIC Hx Endocrine Disorders: Yes Hx Diabetes Mellitus Type 1: Yes Hx Hypothyroidism: Yes - HEMATOLOGICAL/ONCOLOGICAL Hx Blood Disorders: Yes Hx Anemia: Yes - INTEGUMENTARY Hx Dermatological Problems: No - MUSCULOSKELETAL/RHEUMATOLOGICAL Hx Musculoskeletal Disorders: Yes Hx Arthritis: Yes Hx Back Pain: Yes Hx Falls: Yes - GASTROINTESTINAL Hx Gastrointestinal Disorders: Yes Other/Comment: GI bleed, gasric large polyp - GENITOURINARY/GYNECOLOGICAL Hx Genitourinary Disorders: Yes Hx Incontinence: Yes - PSYCHIATRIC Hx Psychophysiologic Disorder: No Hx Substance Use: No - SURGICAL HISTORY Hx Surgeries: Yes Hx Appendectomy: Yes Other/Comment: herniorrhaphy - ANESTHESIA Hx Anesthesia Reactions: No Hx Malignant Hyperthermia: No Meds Allergies/Adverse Reactions: Allergies Allergy/AdvReac Type Severity Reaction Status Date / Time morphine Allergy VOMITING Verified 05/23/17 12:07 orange Allergy RASH Verified 05/23/17 12:07 Penicillins Allergy RASH Verified 05/23/17 12:07 shellfish derived Allergy ANAPHYLAXIS Verified 05/23/17 12:07 tomato Allergy RASH Verified 05/23/17 12:07 - Medications Medications: Current Medications Acetaminophen (Tylenol 325mg Tab) 650 mg PO Q4H PRN PRN Reason: Pain, moderate (4-7) Albuterol/Ipratropium (Duoneb 3 Mg/0.5 Mg (3 Ml) Ud) 3 ml IH [id number] [facility] Last Admin: 05/24/17 08:29 Dose: Not Given Artificial Tears (Artificial Tears) 0 ml OU DAILY [facility] Last Admin: 05/24/17 09:51 Dose: 1 drop Aspirin (Ecotrin) 81 mg PO DAILY [facility] Last Admin: 05/24/17 09:50 Dose: 81 mg Atorvastatin Calcium (Lipitor) 10 mg PO DIN [facility] Clopidogrel Bisulfate (Plavix) 75 mg PO DAILY [facility] Last Admin: 05/24/17 09:50 Dose: 75 mg Docusate Sodium (Colace) 100 mg PO HS [facility] Furosemide (Lasix) 40 mg PO BID [facility] Last Admin: 05/24/17 09:51 Dose: 40 mg Gabapentin (Neurontin) 300 mg PO TID [facility] PRN Reason: Protocol Last Admin: 05/24/17 09:50 Dose: 300 mg Insulin Human Regular (Humulin R Low) 0 units SC ACHS [facility] Last Admin: 05/24/17 08:17 Dose: Not Given Levetiracetam (Keppra) 500 mg PO BID [facility] Last Admin: 05/24/17 09:51 Dose: 500 mg Levothyroxine Sodium (Synthroid) 75 mcg PO 0600 [facility] Last Admin: 05/24/17 05:23 Dose: 75 mcg Magnesium Hydroxide (Milk Of Magnesia) 30 ml PO HS PRN PRN Reason: Constipation Metoprolol Succinate (Toprol Xl) 25 mg PO BRK [facility] Last Admin: 05/24/17 08:18 Dose: 25 mg Pantoprazole Sodium (Protonix Ec Tab) 40 mg PO 0600 [facility] Last Admin: 05/24/17 05:23 Dose: 40 mg Spironolactone (Aldactone) 25 mg PO BID [facility] Last Admin: 05/24/17 09:50 Dose: 25 mg Tramadol HCl (Ultram) 50 mg PO DAILY PRN PRN Reason: Pain, moderate (4-7) Physical Exam - Constitutional Appears: No Acute Distress - Head Exam Head Exam: ATRAUMATIC, NORMAL INSPECTION, NORMOCEPHALIC - Eye Exam Eye Exam: Normal appearance, PERRL Pupil Exam: NORMAL ACCOMODATION, PERRL - ENT Exam ENT Exam: Mucous Membranes Moist - Respiratory Exam Respiratory Exam: Clear to Auscultation Bilateral, NORMAL BREATHING PATTERN. absent: Rales, Rhonchi, Wheezes - Cardiovascular Exam Cardiovascular Exam: REGULAR RHYTHM, +S1, +S2. absent: Gallop, Rubs, Systolic Murmur - GI/Abdominal Exam GI & Abdominal Exam: Normal Bowel Sounds, Soft. absent: Mass, Rebound, Rigid, Tenderness - Extremities Exam Extremities exam: Positive for: normal inspection. Negative for: calf tenderness, pedal edema - Neurological Exam Neurological exam: Alert, CN II-XII Intact, Oriented x3 Additional comments: mild ataxia. no focal neurological deficits noted. Strength 5/5 on upper and lower extremities bilaterally - Psychiatric Exam Psychiatric exam: Normal Affect, Normal Mood - Skin Skin Exam: Dry, Intact, Normal Color, Warm Results - Vital Signs Recent Vital Signs: Last Vital Signs Temp 97.9 F 05/24/17 06:00 Pulse 69 05/24/17 10:00 Resp 19 05/24/17 06:00 BP 135/63 05/24/17 09:51 Pulse Ox 99 05/24/17 06:00 - Labs Result Diagrams: 05/24/17 06:15 05/24/17 06:15 Labs: Laboratory Results - last 24 hr 05/23/17 05/23/17 05/23/17 20:55 20:55 20:55 WBC 8.0 RBC 4.19 Hgb 11.0 L Hct 33.0 L MCV 78.8 L D MCH 26.3 MCHC 33.3 RDW 20.7 H Plt Count 405 MPV 9.3 Gran % 78.7 H Lymph % (Auto) 9.5 L [place] % (Auto) 9.7 H Eos % (Auto) 1.9 Baso % (Auto) 0.2 Gran # 6.32 Lymph # 0.8 L [place] # 0.8 H Eos # 0.2 Baso # 0.02 Sodium 136 Potassium 3.6 Chloride 101 Carbon Dioxide 26 Anion Gap 13 BUN 13 Creatinine 0.6 L Est GFR ( Amer) > 60 Est GFR (Non-Af Amer) > 60 Random Glucose 173 H Calcium 8.6 Iron TIBC % Saturation Total Bilirubin Direct Bilirubin AST ALT Alkaline Phosphatase Total Protein Albumin Globulin Albumin/Globulin Ratio TSH 3rd Generation Phenytoin 46 H* 05/24/17 05/24/17 05/24/17 06:15 06:15 06:15 WBC RBC Hgb Hct MCV MCH MCHC RDW Plt Count MPV Gran % Lymph % (Auto) [place] % (Auto) Eos % (Auto) Baso % (Auto) Gran # Lymph # [place] # Eos # Baso # Sodium 140 Potassium 4.0 Chloride 102 Carbon Dioxide 26 Anion Gap 16 BUN 14 Creatinine 0.5 L Est GFR ( Amer) > 60 Est GFR (Non-Af Amer) > 60 Random Glucose 97 Calcium 9.3 Iron 39 L TIBC 373 % Saturation 11 L Total Bilirubin 0.5 Direct Bilirubin 0.4 AST 20 ALT 33 Alkaline Phosphatase 137 H Total Protein 7.2 Albumin 4.0 Globulin 3.2 Albumin/Globulin Ratio 1.3 TSH 3rd Generation Phenytoin 47 H* 05/24/17 05/24/17 06:15 06:15 WBC 5.3 D RBC 4.56 Hgb 11.8 L Hct 36.0 MCV 78.9 L MCH 25.9 MCHC 32.8 RDW 20.8 H Plt Count 424 MPV 9.8 Gran % Lymph % (Auto) [place] % (Auto) Eos % (Auto) Baso % (Auto) Gran # Lymph # [place] # Eos # Baso # Sodium Potassium Chloride Carbon Dioxide Anion Gap BUN Creatinine Est GFR ( Amer) Est GFR (Non-Af Amer) Random Glucose Calcium Iron TIBC % Saturation Total Bilirubin Direct Bilirubin AST ALT Alkaline Phosphatase Total Protein Albumin Globulin Albumin/Globulin Ratio TSH 3rd Generation 3.38 Phenytoin Assessment & Plan - Assessment and Plan (Free Text) Assessment: This is a 71Y F with PMH CHF, HTN, COPD, CVA, seizure disorder, TIA, DM, hypothyroidism, aortic stenosis s/p TAVR admitted for fall and weakness. This is most likely ataxia secondary to Dilantin toxicity level rather than TIA. Dilantin level has been noted to be elevated since March 2017. Head CT noted to be negative for acute pathology. Plan: - Will obtain carotid doppler - Stop Dilantin - Will start on Keppra 500mg BID - Recommend physical therapy - Recommend following up with neurology as outpatient Case seen, discussed and reviewed with attending, Dr. Bernstein. Bri Do PGY2 - Date & Time Date: 05/24/17 Time: 12:04 <Helder Bernstein - Last Filed: 05/24/17 14:11> Meds - Medications Medications: Current Medications Acetaminophen (Tylenol 325mg Tab) 650 mg PO Q4H PRN PRN Reason: Pain, moderate (4-7) Albuterol/Ipratropium (Duoneb 3 Mg/0.5 Mg (3 Ml) Ud) 3 ml IH [id number] [facility] Last Admin: 05/24/17 13:52 Dose: 3 ml Artificial Tears (Artificial Tears) 0 ml OU DAILY [facility] Last Admin: 05/24/17 09:51 Dose: 1 drop Aspirin (Ecotrin) 81 mg PO DAILY [facility] Last Admin: 05/24/17 09:50 Dose: 81 mg Atorvastatin Calcium (Lipitor) 10 mg PO DIN [facility] Clopidogrel Bisulfate (Plavix) 75 mg PO DAILY [facility] Last Admin: 05/24/17 09:50 Dose: 75 mg Docusate Sodium (Colace) 100 mg PO HS [facility] Furosemide (Lasix) 40 mg PO BID [facility] Last Admin: 05/24/17 09:51 Dose: 40 mg Gabapentin (Neurontin) 300 mg PO TID [facility] PRN Reason: Protocol Last Admin: 05/24/17 09:50 Dose: 300 mg Insulin Human Regular (Humulin R Low) 0 units SC ACHS [facility] Last Admin: 05/24/17 12:54 Dose: Not Given Levetiracetam (Keppra) 500 mg PO BID [facility] Last Admin: 05/24/17 09:51 Dose: 500 mg Levothyroxine Sodium (Synthroid) 75 mcg PO 0600 [facility] Last Admin: 05/24/17 05:23 Dose: 75 mcg Magnesium Hydroxide (Milk Of Magnesia) 30 ml PO HS PRN PRN Reason: Constipation Metoprolol Succinate (Toprol Xl) 25 mg PO BRK [facility] Last Admin: 05/24/17 08:18 Dose: 25 mg Pantoprazole Sodium (Protonix Ec Tab) 40 mg PO 0600 [facility] Last Admin: 05/24/17 05:23 Dose: 40 mg Spironolactone (Aldactone) 25 mg PO BID [facility] Last Admin: 05/24/17 09:50 Dose: 25 mg Tramadol HCl (Ultram) 50 mg PO DAILY PRN PRN Reason: Pain, moderate (4-7) Last Admin: 05/24/17 12:50 Dose: 50 mg Results - Vital Signs Recent Vital Signs: Last Vital Signs Temp 97.9 F 05/24/17 06:00 Pulse 69 05/24/17 10:00 Resp 19 05/24/17 06:00 BP 135/63 05/24/17 09:51 Pulse Ox 99 05/24/17 06:00 - Labs Result Diagrams: 05/24/17 06:15 05/24/17 06:15 Labs: Laboratory Results - last 24 hr 05/23/17 05/23/17 05/23/17 20:55 20:55 20:55 WBC 8.0 RBC 4.19 Hgb 11.0 L Hct 33.0 L MCV 78.8 L D MCH 26.3 MCHC 33.3 RDW 20.7 H Plt Count 405 MPV 9.3 Gran % 78.7 H Lymph % (Auto) 9.5 L [place] % (Auto) 9.7 H Eos % (Auto) 1.9 Baso % (Auto) 0.2 Gran # 6.32 Lymph # 0.8 L [place] # 0.8 H Eos # 0.2 Baso # 0.02 Sodium 136 Potassium 3.6 Chloride 101 Carbon Dioxide 26 Anion Gap 13 BUN 13 Creatinine 0.6 L Est GFR ( Amer) > 60 Est GFR (Non-Af Amer) > 60 Random Glucose 173 H Hemoglobin A1c Calcium 8.6 Iron TIBC % Saturation Total Bilirubin Direct Bilirubin AST ALT Alkaline Phosphatase Total Protein Albumin Globulin Albumin/Globulin Ratio Folate TSH 3rd Generation Phenytoin 46 H* 05/24/17 05/24/17 05/24/17 06:15 06:15 06:15 WBC RBC Hgb Hct MCV MCH MCHC RDW Plt Count MPV Gran % Lymph % (Auto) [place] % (Auto) Eos % (Auto) Baso % (Auto) Gran # Lymph # [place] # Eos # Baso # Sodium 140 Potassium 4.0 Chloride 102 Carbon Dioxide 26 Anion Gap 16 BUN 14 Creatinine 0.5 L Est GFR ( Amer) > 60 Est GFR (Non-Af Amer) > 60 Random Glucose 97 Hemoglobin A1c 5.3 Calcium 9.3 Iron TIBC % Saturation Total Bilirubin 0.5 Direct Bilirubin 0.4 AST 20 ALT 33 Alkaline Phosphatase 137 H Total Protein 7.2 Albumin 4.0 Globulin 3.2 Albumin/Globulin Ratio 1.3 Folate 9.8 TSH 3rd Generation Phenytoin 47 H* 05/24/17 05/24/17 05/24/17 06:15 06:15 06:15 WBC 5.3 D RBC 4.56 Hgb 11.8 L Hct 36.0 MCV 78.9 L MCH 25.9 MCHC 32.8 RDW 20.8 H Plt Count 424 MPV 9.8 Gran % Lymph % (Auto) [place] % (Auto) Eos % (Auto) Baso % (Auto) Gran # Lymph # [place] # Eos # Baso # Sodium Potassium Chloride Carbon Dioxide Anion Gap BUN Creatinine Est GFR ( Amer) Est GFR (Non-Af Amer) Random Glucose Hemoglobin A1c Calcium Iron 39 L TIBC 373 % Saturation 11 L Total Bilirubin Direct Bilirubin AST ALT Alkaline Phosphatase Total Protein Albumin Globulin Albumin/Globulin Ratio Folate TSH 3rd Generation 3.38 Phenytoin Attending/Attestation - Attestation I have personally seen and examined this patient.: Yes I have fully participated in the care of the patient.: Yes I have reviewed all pertinent clinical information: Yes
[2017-05-24 12:55] LABS: FOLATE 9.8 ng/mL
--- NOTE | 2017-05-24 16:45 | PN ---
SUBJECTIVE: The patient is a 71-year-old female. The patient seen and examined at the bedside, still having dizziness, headache, blurring of vision. No chest pain, no palpitation, no shortness of breath. No fever, no chills. No hematuria, no hematochezia. No swelling of the legs. Appetite is okay. Sleep was comfortable. Bowel movement was okay. PHYSICAL EXAMINATION: VITAL SIGNS: She is afebrile. Temperature 98.6, respiratory rate 18, pulse 80, blood pressure 130/80. HEENT: Head is normocephalic and atraumatic. Eyes; PERRLA. Extraocular muscles are intact. Conjunctivae are clear. Nose is patent. Mucous membranes are moist. NECK: Supple. No carotid bruits. No JVD or thyromegaly. CHEST: Bilaterally symmetrical. HEART: S1 and S2 positive. LUNGS: Clear to auscultation. ABDOMEN: Soft. Bowel sounds positive. No organomegaly. EXTREMITIES: No edema. No cyanosis. NEUROLOGIC: The patient is awake and alert. Moving all four extremities. Cranial nerves II through XII grossly intact. LABORATORY DATA: Reviewed by me. White blood cells is 5.3, hemoglobin 11.8, hematocrit 36.0, platelets 424. Sodium 140, potassium 4.0, BUN 14, creatinine 0.5, iron 39, iron saturation 11, alkaline phosphatase 137, TSH 3.38. Digoxin level 47. MEDICATIONS: Spironolactone, docusate, albuterol, DuoNeb, aspirin, insulin, atorvastatin, magnesium, levothyroxine, Tylenol, and tramadol. ASSESSMENT AND PLAN: The patient is a 71-year-old lady with history of multiple medical problems; congestive heart failure; hypertension; chronic obstructive pulmonary disease; cerebrovascular accident; seizure disorder; transient ischemic attack; diabetes mellitus; hypothyroidism; aortic stenosis, transcatheter aortic valve replacement. Did CAT scan of the head, negative for acute pathology. Back x-ray was negative for fracture. Dilantin toxicity. History of appendectomy. Went for bilateral carotid Doppler of the neck, results are pending. Doing daily Dilantin level. Neurologist is on the case. History of transient ischemic attack, most likely that was due to Dilantin toxicity level rather than transient ischemic attack. Stop Dilantin and according to Dr. Bernstein, we will start Keppra, physical therapy, gastrointestinal and deep venous thrombosis prophylaxis. Review Dr. Bernstein's and Dr. Martin's notes. History of severe anemia, status post blood transfusion. Discussion done with Dr. Martin. We will followup. Mayra Ibarra MD
[2017-05-24] MEDS ORDERED: HYDROmorphone 0.5 mg/0.5 ml ISec IVP STA (18:51)
--- NOTE | 2017-05-24 19:02 | PN ---
REFERRING PHYSICIAN: Mayra Ibarra MD SUBJECTIVE: She is lying in the bed, feels better, less dizzy. No headache, no nausea, no vomiting, no diarrhea, no leg pain or leg swelling. OBJECTIVE: GENERAL: In no acute distress. VITAL SIGNS: Temperature 98, heart rate 69, respiratory rate is 20, blood pressure 135/63, pulse ox 99% on room air. HEENT: Moist mucous membrane. Crowded airway. NECK: Supple. No JVD. LUNGS: Fair airflow with rhonchi. HEART: S1 and S2. ABDOMEN: Soft and nontender. No organomegaly. EXTREMITIES: No edema. NEUROLOGIC: Awake, alert, and follows simple commands. MEDICATIONS: She is on Aldactone 25 mg twice a day, artificial tears to both eyes, Colace 100 mg at bedtime, albuterol HFA nebulizer q.6 hours, Ecotrin 81 mg daily, Keppra 500 mg twice a day, Lasix 40 mg twice a day, Lipitor 10 mg daily, milk of magnesia at bedtime p.r.n., Neurontin 300 mg 3 times a day, Plavix 75 mg daily, Protonix 40 mg daily, Synthroid 75 mcg daily, Toprol XL 25 mg daily, Tylenol p.r.n., Ultram 50 mg daily. LABORATORY DATA: Shows hemoglobin 11.8, hematocrit 36.0, WBC is 5.3 and platelets 424. Sodium 140, potassium 4.0, chloride 102, bicarbonate 26, BUN 14 and creatinine 0.5, glucose is 97. Iron is 39. AST 20 and ALT 33. Alk phos is 137, TSH 3.38. Dilantin level is 47 today. ASSESSMENT: Dilantin toxicity, seizure disorder, aortic stenosis, history of transcatheter aortic valve replacement, anemia, B12 deficiency, diabetes, history of cerebrovascular accident, hypertension, may have obstructive sleep apnea syndrome, chronic lung disease, hypothyroid, gastroesophageal reflux disease. Dilantin is on hold. She is on Keppra and Neurontin, continue to follow level. Fall precaution, bronchodilator, gastric prophylaxis. Thank you and we will follow with you. Jaleesa Martin MD [facility] # [id number]
[2017-05-24] MEDS: Naproxen 550 mg Tab PO SCH (22:26)
--- NOTE | 2017-05-24 22:34 | US ---
PROCEDURE: Bilateral carotid artery duplex ultrasound HISTORY: Carotid stenosis CVA PHYSICIAN(S): Travon Carmichael MD. TECHNIQUE: Duplex sonography and color-flow Doppler were used to evaluate the carotid bifurcations and limited segments of the vertebral arteries bilaterally. FINDINGS: There is mild smooth heterogeneous plaque noted at the carotid bifurcations bilaterally. The peak systolic velocity in the proximal right internal carotid artery is 71 cm/sec. This corresponds to a 20 to 39% proximal right ICA stenosis. Normal systolic velocities are noted in the proximal right external carotid artery. There is antegrade flow in the right vertebral artery. The peak systolic velocity in the proximal left internal carotid artery is 76 cm/sec. This corresponds to a 20 to 39% proximal left ICA stenosis. Normal systolic velocities are noted in the proximal left external carotid artery. There is antegrade flow in the left vertebral artery. IMPRESSION: 1. Bilateral 20-39% proximal ICA stenoses. 2. Antegrade flow in both vertebral arteries.
[2017-05-25] MEDS: Albuterol-Ipratrop 3 mg / 0.5 (3 ml) UD IH SCH ×3 (01:44→13:10)
[2017-05-25] MEDS: Pantoprazole 40 mg EC Tab PO SCH (05:22)
[2017-05-25] MEDS: Levothyroxine 75 MCG TAB PO SCH (05:22)
[2017-05-25 06:12] VITALS: O2SAT 98
[2017-05-25 06:44] LABS: ALB/GLOB RATIO 1.3 (1.1-1.8); ALKALINE PHOSPHATASE 120 U/L (38-126); ALT/SGPT 26 U/L (7-56); AST/SGOT 21 U/L (14-36); BASO # 0.03 K/mm3 (0.0-2.0); BASO % 0.5 % (0.0-3.0); BILIRUBIN,TOTAL 0.4 mg/dL (0.2-1.3); BLOOD UREA NITROGEN 18 mg/dL (7-21); CALCIUM 8.7 mg/dL (8.4-10.5); CARBON DIOXIDE 28 mmol/L (21-33); CHLORIDE 101 mmol/L (98-107); CHOLESTEROL 170 mg/dL (130-200); EOS # 0.4 (0.0-0.7); GFR AFRICAN-AMERICAN > 60; GLUCOSE,RANDOM 100 mg/dL (70-110); GRAN # 3.74 (1.4-6.5); HEMATOCRIT 32.6 % (36.0-48.0); LYMPH % 16.2 % (22.0-35.0); MAGNESIUM 2.1 mg/dL (1.7-2.2); MEAN CELL VOLUME 78.7 fl (80.0-105.0); MEAN CORPUSCULAR HEMOGLOBIN 26.1 pg (25.0-35.0); MEAN CORPUSCULAR HGB CONC 33.1 g/dl (31.0-37.0); MEAN PLATELET VOLUME 9.7 fl (7.0-11.0); MONO # 0.8 (0.1-0.6); MONO % 13.3 % (1.0-6.0); PHOSPHOROUS 4.3 mg/dL (2.5-4.5); POTASSIUM 3.7 mmol/L (3.6-5.0); RED CELL DISTRIBUTION WIDTH 20.8 % (11.5-14.5); SODIUM 137 mmol/L (132-148); TOTAL PROTEIN 6.7 g/dL (5.8-8.3); WHITE BLOOD COUNT 5.9 10^3/ul (4.5-11.0)
[2017-05-25] MEDS: Insulin Reg-LOW-Coverage SC SCH ×2 (07:42→12:04)
[2017-05-25] MEDS: Metoprolol Succinate 25 mg XL Tab PO SCH (08:23)
--- NOTE | 2017-05-25 08:47 | RAD ---
PROCEDURE: Bilateral ribs HISTORY: Falls COMPARISON: TECHNIQUE: Multiple views FINDINGS: There is no evidence of rib fracture for pneumothorax IMPRESSION: Negative study
--- NOTE | 2017-05-25 09:11 | CP.PCM.PN ---
<Kassy Do - Last Filed: 05/25/17 09:08> Subjective - Date & Time of Evaluation Date of Evaluation: 05/25/17 Time of Evaluation: 09:08 - Subjective Subjective: Neurology Progress Note for Bri Tapia PGY2 Patient seen and examined at bedside. As per nursing, there were no acute overnight events. Patient reports feeling well today. She denies having any dizziness, headache, weakness, vision changes, CP, SOB, n/v/d, numbness/ tingling. Objective - Vital Signs/Intake and Output Vital Signs (last 24 hours): Temp Pulse Resp BP Pulse Ox 98.0 F 81 20 119/61 98 05/25/17 06:00 05/25/17 08:23 05/25/17 06:00 05/25/17 08:23 05/25/17 06:00 Intake and Output: 05/25/17 05/25/17 06:59 18:59 Intake Total 240 Output Total 600 Balance -360 - Medications Medications: Current Medications Acetaminophen (Tylenol 325mg Tab) 650 mg PO Q4H PRN PRN Reason: Pain, moderate (4-7) Last Admin: 05/24/17 16:50 Dose: 650 mg Albuterol/Ipratropium (Duoneb 3 Mg/0.5 Mg (3 Ml) Ud) 3 ml IH [id number] [facility] Last Admin: 05/25/17 07:52 Dose: 3 ml Artificial Tears (Artificial Tears) 0 ml OU DAILY [facility] Last Admin: 05/24/17 09:51 Dose: 1 drop Aspirin (Ecotrin) 81 mg PO DAILY [facility] Last Admin: 05/24/17 09:50 Dose: 81 mg Atorvastatin Calcium (Lipitor) 10 mg PO DIN [facility] Last Admin: 05/24/17 17:02 Dose: 10 mg Clopidogrel Bisulfate (Plavix) 75 mg PO DAILY [facility] Last Admin: 05/24/17 09:50 Dose: 75 mg Docusate Sodium (Colace) 100 mg PO HS [facility] Last Admin: 05/24/17 22:39 Dose: 100 mg Furosemide (Lasix) 40 mg PO BID [facility] Last Admin: 05/24/17 17:02 Dose: 40 mg Gabapentin (Neurontin) 300 mg PO TID [facility] PRN Reason: Protocol Last Admin: 05/24/17 17:02 Dose: 300 mg Insulin Human Regular (Humulin R Low) 0 units SC ACHS [facility] Last Admin: 05/25/17 07:42 Dose: Not Given Levetiracetam (Keppra) 500 mg PO BID [facility] Last Admin: 05/24/17 17:02 Dose: 500 mg Levothyroxine Sodium (Synthroid) 75 mcg PO 0600 [facility] Last Admin: 05/25/17 05:22 Dose: 75 mcg Magnesium Hydroxide (Milk Of Magnesia) 30 ml PO HS PRN PRN Reason: Constipation Metoprolol Succinate (Toprol Xl) 25 mg PO BRK [facility] Last Admin: 05/25/17 08:23 Dose: 25 mg Naproxen (Anaprox Ds) 550 mg PO BID [facility] Last Admin: 05/24/17 22:26 Dose: Not Given Pantoprazole Sodium (Protonix Ec Tab) 40 mg PO 0600 [facility] Last Admin: 05/25/17 05:22 Dose: 40 mg Spironolactone (Aldactone) 25 mg PO BID [facility] Last Admin: 05/24/17 17:02 Dose: 25 mg Tramadol HCl (Ultram) 50 mg PO DAILY PRN PRN Reason: Pain, moderate (4-7) Last Admin: 05/25/17 08:23 Dose: 50 mg - Labs Labs: 05/25/17 06:00 05/25/17 06:00 - Constitutional Appears: No Acute Distress - Head Exam Head Exam: ATRAUMATIC, NORMAL INSPECTION, NORMOCEPHALIC - Eye Exam Eye Exam: EOMI, Normal appearance, PERRL. absent: Nystagmus Pupil Exam: NORMAL ACCOMODATION, PERRL - ENT Exam ENT Exam: Mucous Membranes Moist - Respiratory Exam Respiratory Exam: Clear to Ausculation Bilateral, NORMAL BREATHING PATTERN. absent: Rales, Rhonchi, Stridor - Cardiovascular Exam Cardiovascular Exam: REGULAR RHYTHM, +S1, +S2. absent: Gallop, Rubs, Murmur - GI/Abdominal Exam GI & Abdominal Exam: Soft, Normal Bowel Sounds. absent: Rigid, Tenderness, Mass , Rebound - Extremities Exam Extremities Exam: Normal Inspection. absent: Calf Tenderness, Pedal Edema - Neurological Exam Neurological Exam: Alert, Awake, CN II-XII Intact, Oriented x3 Neuro motor strength exam: Left Upper Extremity: 5, Right Upper Extremity: 5, Left Lower Extremity: 5, Right Lower Extremity: 5 Additional comments: + mild ataxia - Psychiatric Exam Psychiatric exam: Normal Affect, Normal Mood - Skin Skin Exam: Dry, Intact, Normal Color, Warm Assessment and Plan - Assessment and Plan (Free Text) Assessment: This is a 71Y F with PMH CHF, HTN, COPD, CVA, seizure disorder, TIA, DM, hypothyroidism, aortic stenosis s/p TAVR admitted for fall and weakness. This is most likely ataxia secondary to Dilantin toxicity level rather than TIA. Dilantin level has been noted to be elevated since March 2017. Head CT noted to be negative for acute pathology. Dilantin level trending down. Carotid doppler showed 20-39% bilaterally. Plan: - Continue Keppra 500mg BID - Continue physical therapy - Recommend out of bed to chair - Recommend following up with neurology as outpatient Case seen, discussed and reviewed with attending, Dr. Bernstein. Bri Do PGY2 <Helder Bernstein - Last Filed: 05/25/17 13:50> Objective - Vital Signs/Intake and Output Vital Signs (last 24 hours): Temp Pulse Resp BP Pulse Ox 97.3 F L 64 19 103/64 98 05/25/17 12:00 05/25/17 12:00 05/25/17 12:00 05/25/17 12:00 05/25/17 06:00 Intake and Output: 05/25/17 05/25/17 06:59 18:59 Intake Total 240 Output Total 600 Balance -360 - Medications Medications: Current Medications Acetaminophen (Tylenol 325mg Tab) 650 mg PO Q4H PRN PRN Reason: Pain, moderate (4-7) Last Admin: 05/25/17 13:28 Dose: 650 mg Albuterol/Ipratropium (Duoneb 3 Mg/0.5 Mg (3 Ml) Ud) 3 ml IH [id number] [facility] Last Admin: 05/25/17 13:10 Dose: 3 ml Artificial Tears (Artificial Tears) 0 ml OU DAILY [facility] Last Admin: 05/25/17 10:23 Dose: 1 drop Aspirin (Ecotrin) 81 mg PO DAILY [facility] Last Admin: 05/25/17 10:24 Dose: 81 mg Atorvastatin Calcium (Lipitor) 10 mg PO DIN [facility] Last Admin: 05/24/17 17:02 Dose: 10 mg Clopidogrel Bisulfate (Plavix) 75 mg PO DAILY [facility] Last Admin: 05/25/17 10:25 Dose: 75 mg Docusate Sodium (Colace) 100 mg PO HS [facility] Last Admin: 05/24/17 22:39 Dose: 100 mg Furosemide (Lasix) 40 mg PO BID [facility] Last Admin: 05/25/17 10:24 Dose: 40 mg Gabapentin (Neurontin) 300 mg PO TID [facility] PRN Reason: Protocol Last Admin: 05/25/17 13:45 Dose: 300 mg Insulin Human Regular (Humulin R Low) 0 units SC ACHS [facility] Last Admin: 05/25/17 12:04 Dose: 1 units Levetiracetam (Keppra) 500 mg PO BID [facility] Last Admin: 05/25/17 10:24 Dose: 500 mg Levothyroxine Sodium (Synthroid) 75 mcg PO 0600 [facility] Last Admin: 05/25/17 05:22 Dose: 75 mcg Magnesium Hydroxide (Milk Of Magnesia) 30 ml PO HS PRN PRN Reason: Constipation Metoprolol Succinate (Toprol Xl) 25 mg PO BRK [facility] Last Admin: 05/25/17 08:23 Dose: 25 mg Naproxen (Anaprox Ds) 550 mg PO BID [facility] Last Admin: 05/25/17 10:24 Dose: 550 mg Pantoprazole Sodium (Protonix Ec Tab) 40 mg PO 0600 [facility] Last Admin: 05/25/17 05:22 Dose: 40 mg Spironolactone (Aldactone) 25 mg PO BID [facility] Last Admin: 05/25/17 10:24 Dose: 25 mg Tramadol HCl (Ultram) 50 mg PO DAILY PRN PRN Reason: Pain, moderate (4-7) Last Admin: 05/25/17 08:23 Dose: 50 mg - Labs Labs: 05/25/17 06:00 05/25/17 06:00 Attending/Attestation - Attestation I have personally seen and examined this patient.: Yes I have fully participated in the care of the patient.: Yes I have reviewed all pertinent clinical information, including history, physical exam and plan: Yes
--- NOTE | 2017-05-25 09:39 | CON ---
DATE: REASON FOR CONSULTATION: Status post fall, possible mechanical, rule out TIA, rule out seizure, rule out syncope, history of aortic stenosis status post TAVR, cardiac evaluation. BRIEF CLINICAL HISTORY: This is a 71-year-old female with a past medical history significant for seizure disorder, diabetes, severe aortic stenosis, status post TAVR at [facility] on 04/16/2017, who was in the group home, was in the wheelchair, says that she was going to get the juice from the night table, suddenly fell down and felt very weak. Denies any chest pain, denies shortness of breath,or denies any palpitation. She says that she fell down, but strongly denies that she had lost her conscious, but not sure what happened and cannot recall the further event. PAST MEDICAL HISTORY: Significant for history of arrhythmia, APCs, history of GI bleed, history of AFib, but since then the patient is in normal sinus. An EKG on 08/16/2016 Pt was in NSR with A Pcs, computer reads A fib, But it was NSR with Apc .history of seizure disorder, history of hypertension, history of GI bleed, history of gastric mass, which has endomucosal resection done, history of gastroesophageal reflux, history of seizure disorder, history of restless leg syndrome, and history of neuropathy. PAST SURGICAL HISTORY: Significant for TAVR, transcutaneous aortic valve replacement done at [facility] with severe aortic stenosis on 04/16/2017. History of appendectomy in the past in 2008, history of right inguinal hernia in 2007, history of anemia, history of multiple transfusion in the past, history of endomucosal resection of a large gastric mass. PREVIOUS CARDIAC WORKUP: The patient had an echo on 08/09/2016 with severe aortic stenosis, valve area of 0.6 cm, ejection fraction within normal limits, diastolic dysfunction, calcified severe aortic stenosis, mild aortic regurgitation, mild mitral regurgitation. No pulmonary hypertension. No significant tricuspid regurgitation, RV systolic pressure 30, calculated ejection fraction 55% dated 08/09/2016. The patient had recently cardiac catheterization done at [facility] where the patient was admitted here with syncope for aortic stenosis, nonobstructive coronary artery disease followed by the patient had a TAVR there. CURRENT MEDICATIONS: The patient is on B complex, simvastatin, multivitamin, Lasix, tramadol, metoprolol 25 mg twice a day, magnesium, gabapentin, clopidogrel, atorvastatin and aspirin. ALLERGIES: ALLERGIC TO MORPHINE, ALLERGIC TO ORANGE, ALLERGIC TO PENICILLIN, SHELLFISH, AND TOMATOES. REVIEW OF SYSTEMS: As per HPI. PHYSICAL EXAMINATION: As follows; VITAL SIGNS: Temperature afebrile. Heart rate 69, blood pressure 135/63. HEENT: PERRLA. Extraocular muscles intact. NECK: Supple. No carotid bruits. No thyromegaly. CHEST: Clear to auscultation. HEART: S1 and S2, regular. ABDOMEN: Soft. EXTREMITIES: Clubbing and cyanosis negative. LABORATORY DATA: Blood workup as follows; WBC , hemoglobin 11.8, hematocrit 36, platelet count 424. Chemistry shows sodium 140, potassium of 4, chloride of 102, carbon dioxide 26, anion gap of 16, BUN is 14, creatinine of 0.5. IMPRESSION: Status post fall, cannot rule out seizure, cannot rule out syncope. No evidence of arrhythmia since the patient is here; history of severe aortic stenosis, status post transcatheter aortic valve replacement, history of cardiac catheterization on 04/14; nonobstructive coronary artery disease; history of transcatheter aortic valve replacement dated 04/16/2017; seizure disorder; history of restless leg syndrome, history of neuropathy. RECOMMENDATION: Resume back aspirin and Plavix. Get echo to access LV function as well as to rule out any paravalvular leak post-TAVR. Neuro follow up, further recommendation in hospital course. We will follow with you. No evidence of arrhythmia noted in telemetry. Followup with neurologist. Neuro workup in progress also. We will follow with you. So far, CT head was done, is negative for acute bleed and age-related moderate global parenchymal loss noted. Thank you Dr. Ibarra for providing me the opportunity in taking care of Mabel Jacobsen. Jaleesa Boss MD [place]
[2017-05-25] MEDS: Aritificial Tears (15ml) OU SCH (10:23)
[2017-05-25] MEDS: Naproxen 550 mg Tab PO SCH (10:24)
[2017-05-25 12:26] VITALS: BP 103/64; PULSE 64; RESP 19; TEMP 97.3
--- NOTE | 2017-05-25 13:25 | PN ---
REASON FOR CONSULTATION: Status post fall, status post TAVR, cardiac evaluation. SUBJECTIVE: The patient denies any chest pain, denies shortness of breath; complaining of leg pain and leg movement. OBJECTIVE: GENERAL: Not in apparent distress. VITAL SIGNS: As follows; temperature afebrile. Heart rate 81, blood pressure 119/61. HEENT: PERRLA, intact. NECK: Supple. No carotid bruits. No thyromegaly. CHEST: Clear to auscultation. HEART: S1 and S2, regular. ABDOMEN: Soft. EXTREMITIES: Clubbing and cyanosis negative. LABORATORY DATA: Blood workup as follows; WBC 5.9, hemoglobin 10.2, hematocrit 32.6, platelet count 417. Chemistry shows sodium 130, potassium of 3.7, chloride of 101, carbon dioxide 28, anion gap of 12, BUN is 8, creatinine of 0.16. Total cholesterol 170, triglycerides 74, LDL 97, HDL 55. IMPRESSION: Status post fall. The patient states she fell down, did not lose consciousness; history of seizure disorder; history of brain aneurysm in the past; history of removal of large mass from the stomach, endomucosal resection; history of severe aortic stenosis, status post TAVR on 04/16. Pre-TAVR echo showed ejection fraction of 55% dated 08/09/2016, severe aortic stenosis. RECOMMENDATION: We will get echo to assess paravalvular leak post-TAVR. Continue aspirin; continue Plavix; continue low-dose atorvastatin. We will get echo and we will discontinue telemetry. Thank you Dr. Ibarra for providing me the opportunity in taking care of the patient. Jaleesa Boss MD
--- NOTE | 2017-05-25 14:48 | CARD ---
APPROVED REPORT EXAM: Two-dimensional and M-mode echocardiogram with Doppler and color Doppler. INDICATION Aortic Valve Disease 2D DIMENSIONS Left Atrium (2D)4.2 (1.6-4.0cm)IVSd1.5 (0.7-1.1cm) LVDd4.1 (3.9-5.9cm)LVOT Diameter1.9 (1.8-2.4cm) PWd1.3 (0.7-1.1cm)LVDs3.0 (2.5-4.0cm) FS (%) 26.2 %LVEF (%)51.9 (>50%) M-Mode DIMENSIONS Aortic Root2.00 (2.2-3.7cm)Aortic Cusp Exc.1.20 (1.5-2.0cm) Aortic Valve AoV Peak Bhbczrzr056.0cm/sAoV VTI52.3cmAO Peak GR.31mmHg LVOT Peak Evlwrhft872.0cm/sLVOT VTI19.10cmAO Mean GR.14mmHg NATALIYA (VMAX)1.33kg4ROJ (VTI)1.04cm2 Mitral Valve MV E Dqdskmjw90.7cm/sMV A Xffonclb876.0cm/sE/A ratio0.7 TDI E/Lateral E'0.0E/Medial E'0.0 LEFT VENTRICLE The left ventricle is normal size. There is mild to moderate concentric left ventricular hypertrophy. low normal. EF-50-55% There is normal LV segmental wall motion. Transmitral Doppler flow pattern is Grade III-reversible restrictive diastolic dysfunction. No left ventricle thrombus noted on this study. There is no ventricular septal defect visualized. There is no left ventricular aneurysm. There is no mass noted in the left ventricle. RIGHT VENTRICLE The right ventricle is normal size. There is normal right ventricular wall thickness. The right ventricular systolic function is normal. ATRIA The left atrium is mildly dilated. The right atrium size is normal. The interatrial septum is intact with no evidence for an atrial septal defect. AORTIC VALVE S/p TAVR, functioning Normal no Paravalvular Leak. Post TAVR NATALIYA 1.1 cm2 with peak gradient 31 mm, and mean gradient 14 mm of Hg. MITRAL VALVE The mitral valve is thickened but opens well. Mitral annular calcification is moderate. Mitral regurgitation is trace to mild. There is no mitral valve stenosis. There is no evidence of mitral valve prolapse. TRICUSPID VALVE The tricuspid valve leaflets are thickened , but open well. There is trace tricuspid regurgitation. There is no tricuspid valve stenosis. There is no tricuspid valve prolapse or vegetation. PULMONIC VALVE The pulmonic valve is mildly thickened. There is trace to mild pulmonic valvular regurgitation. There is no pulmonic valvular stenosis. GREAT VESSELS The aortic root is normal in size. The ascending aorta is normal in size. The pulmonary artery is normal. The IVC is normal in size and collapses >50% with inspiration. PERICARDIAL EFFUSION There is no pleural effusion. There is no pericardial effusion. <Conclusion> The left ventricle is normal size. There is mild to moderate concentric left ventricular hypertrophy. low normal. EF-50-55% S/p TAVR, functioning Normal no Paravalvular Leak. Post TAVR NATALIYA 1.1 cm2 with peak gradient 31 mm, and mean gradient 14 mm of Hg. Mitral regurgitation is trace to mild. There is trace tricuspid regurgitation. There is trace to mild pulmonic valvular regurgitation. The IVC is normal in size and collapses >50% with inspiration. There is no pericardial effusion. S/p TAVR 04/16/2027 for critical .
== END 2017-05-25 16:19 | DRG 92 ==
LOC: ED 12:00 → ERH 19:16 → 2RNO 21:28 → OBSVTOIN 05-24 14:11
PROVIDERS: ADMIT Internal Medicine; ATTEND Internal Medicine
DX: R27.0 Ataxia, unspecified (principal); I42.9 Cardiomyopathy, unspecified; E10.40 Type 1 diabetes mellitus with diabetic neuropathy, unspecified; I11.0 Hypertensive heart disease with heart failure; I50.9 Heart failure, unspecified; I48.91 Unspecified atrial fibrillation; I69.351 Hemiplegia and hemiparesis following cerebral infarction affecting right dominant side; G25.81 Restless legs syndrome; I08.0 Rheumatic disorders of both mitral and aortic valves; D64.9 Anemia, unspecified; S00.93XA Contusion of unspecified part of head, initial encounter; W05.0XXA Fall from non-moving wheelchair, initial encounter; J44.9 Chronic obstructive pulmonary disease, unspecified; E03.9 Hypothyroidism, unspecified; T42.0X5A Adverse effect of hydantoin derivatives, initial encounter; E78.00 Pure hypercholesterolemia, unspecified; G40.909 Epilepsy, unspecified, not intractable, without status epilepticus; G47.30 Sleep apnea, unspecified; H40.9 Unspecified glaucoma; I25.10 Atherosclerotic heart disease of native coronary artery without angina pectoris; K21.9 Gastro-esophageal reflux disease without esophagitis; Z79.02 Long term (current) use of antithrombotics/antiplatelets; Z79.4 Long term (current) use of insulin; Z79.82 Long term (current) use of aspirin; Z79.899 Other long term (current) drug therapy; Z87.19 Personal history of other diseases of the digestive system; Z87.11 Personal history of peptic ulcer disease; Z90.49 Acquired absence of other specified parts of digestive tract; Z95.2 Presence of prosthetic heart valve; G47.33 Obstructive sleep apnea (adult) (pediatric)